=== PATIENT | female | born 1960 | race Caucasian/White ===

== ENCOUNTER → 2017-09-05 | Outpatient (CLI) | payer BC ==
[~2017-09-05] MED LIST: BNZ10T PO; CHOL100011 PO; DCS100C PO; DIPH-450 PO; DOCU100T7 PO; ESTR1TAB24 PO; HYDR1CAP2 PO; IBP800T PO; LVT.15T PO; LVT.1T PO; POTA10CA43 PO; SPIR50TA27 PO; TRIA1CAP PO
--- NOTE | 2017-09-05 22:18 | Diagnostic Imaging Report ---
Bilateral screening mammogram 2D views with tomosynthesis The current study was also evaluated with a Computer Aided Detection (CAD) system. INDICATION: Screening. No current complaints stated on the questionnaire. COMPARISON: 09/04/16. FINDINGS: The breasts are composed of heterogeneously dense parenchyma which may decrease mammographic sensitivity. There are scattered benign-appearing calcifications. Allowing for technique and positional differences, no suspicious change is seen. IMPRESSION: No significant change. ACR BI-RADS Category 2: Benign findings. Result letter will be mailed to the patient. Note: At least 10% of breast cancer is not imaged by mammography. Dictated by: Dictated on workstation # [id number]
== END ==
LOC: RAD 09:50
PROVIDERS: ATTEND Internal Medicine
DX: Z12.31 Encounter for screening mammogram for malignant neoplasm of breast (principal)
CPT/HCPCS: 77067

== ENCOUNTER → 2018-06-03 | Outpatient (CLI) | payer BC | LOC: CARD 07:24 | PROVIDERS: ATTEND Internal Medicine | DX: R00.2 Palpitations (principal) | CPT/HCPCS: 93005 ==

== ENCOUNTER 2018-06-05 08:07 | Outpatient (RCR) | payer BC | END 2018-06-24 | disposition home or self-care (01) | LOC: CARD 08:07 | PROVIDERS: ATTEND Internal Medicine | DX: R00.2 Palpitations (principal) | CPT/HCPCS: 93225; 93226 ==

== ENCOUNTER → 2018-10-07 | Outpatient (CLI) | payer BC ==
--- NOTE | 2018-10-07 12:29 | Diagnostic Imaging Report ---
INDICATION: Routine screening. COMPARISON: Comparison is made with prior mammograms from 09/05/2017 and 09/04/2016. TECHNIQUE: 2D and 3D bilateral screening mammography was performed with computer-aided detection (CAD) system. FINDINGS: Both breasts remain heterogeneously dense, limiting the sensitivity of mammography. No dominant mass or malignant appearing microcalcifications are seen. The axillae are unremarkable. IMPRESSION: No mammographic features suspicious for malignancy are identified. ACR BI-RADS Category 2: Benign findings. Result letter will be mailed to the patient. Note: At least 10% of breast cancer is not imaged by mammography. Dictated by: Dictated on workstation # [id number]
== END ==
LOC: RAD 07:45
PROVIDERS: ATTEND Internal Medicine
DX: Z12.31 Encounter for screening mammogram for malignant neoplasm of breast (principal)
CPT/HCPCS: 77067

== ENCOUNTER → 2019-10-14 | Outpatient (CLI) | payer BC ==
--- NOTE | 2019-10-14 09:25 | Diagnostic Imaging Report ---
INDICATION: Routine screening. Comparison is made with prior mammogram from 10/07/2018 and 09/05/2017. 2-D and 3-D bilateral screening mammography was performed with CAD. Both breasts are heterogeneously dense, limiting the sensitivity of mammography. There are some circumscribed nodular densities in left breast which appear to be fairly stable and likely owing to benign etiology. There is scattered benign calcifications bilaterally. A cluster of micro-calcifications in the outer right breast posterior depth is noted appearing slightly more prominent. Additional views are recommended. These may be superiorly located on the MLO view. No other suspicious abnormality is seen. Axillae are unremarkable. IMPRESSION: BI-RADS 0 Microcalcifications upper outer right breast posterior depth. Additional views are recommended for further evaluation. ACR BI-RADS Category 0: Incomplete. (Needs additional imaging evaluation). Result letter will be mailed to the patient. Note: At least 10% of breast cancer is not imaged by mammography. Dictated by: Dictated on workstation # [id number]
== END ==
LOC: RAD 07:33
PROVIDERS: ATTEND Internal Medicine
DX: Z12.31 Encounter for screening mammogram for malignant neoplasm of breast (principal)
CPT/HCPCS: 77067

== ENCOUNTER → 2019-10-29 | Outpatient (CLI) | payer BC ==
--- NOTE | 2019-10-29 13:11 | Diagnostic Imaging Report ---
INDICATION: Right breast calcifications. Patient presents for additional views. Correlation is made with recent screening study from 10/14/2019. Unilateral right 2-D and 3-D diagnostic mammography was performed. This includes magnification CC and ML views as well as conventional 90 degree lateral views. Additional views show a cluster of indeterminate microcalcifications in the upper and outer aspect of the right breast posterior depth. These do demonstrate some pleomorphism. No soft tissue tissue masses seen. Right axilla is unremarkable. IMPRESSION: BI-RADS 4 Cluster microcalcifications upper outer right breast posterior depth, indeterminate. Tissue sampling is recommended. These would be amenable to stereotactic biopsy. ACR BI-RADS Category 4: Suspicious abnormality. Result letter will be mailed to the patient. Note: At least 10% of breast cancer is not imaged by mammography. Dictated by: Dictated on workstation # [id number]
== END ==
LOC: RAD 12:34
PROVIDERS: ATTEND Internal Medicine
DX: N63.10 Unspecified lump in the right breast, unspecified quadrant (principal); R92.0 Mammographic microcalcification found on diagnostic imaging of breast

== ENCOUNTER → 2019-11-11 | Outpatient (CLI) | payer BC ==
[~2019-11-11] VITALS: Ht 170.2 cm; Wt 90.9 kg
[~2019-11-11] MED LIST changes: +LIDOCAINE 1% INJ 20 ML 20 ML VIAL INJ ONE
--- NOTE | 2019-11-11 10:55 | Diagnostic Imaging Report ---
INDICATION: Right breast calcifications. Patient presents for stereotactic biopsy. PROCEDURE: Patient was brought to the stereotactic suite and placed in a chair in a sitting upright position. Right breast was positioned lateral medial. The cluster of microcalcifications in the upper outer right breast were stereotactically targeted. The lateral right breast was then prepped and draped in usual sterile fashion. A small amount of 1% lidocaine was utilized for local anesthesia. 8-gauge stereotactic needle was then advanced from a lateral medial approach and placed per stereotactic coordinates. A total of four core biopsies were obtained with the 8 gauge needle and vacuum-assisted device. A specimen radiograph was obtained. Specimen radiograph demonstrates numerous calcifications located in samples 2, 3 and 4. Next, a localizer clip was deployed. Needle was removed and hemostasis was obtained. Follow-up 2D mammography demonstrates the clip in the upper outer right breast at posterior depth. All images were reviewed on dedicated workstation. Patient tolerated the procedure well and left the department in stable condition. IMPRESSION: Successful stereotactic biopsy of right breast calcifications, as described. Pathology results are currently pending. Dictated by: Dictated on workstation # [id number]
== END ==
LOC: RAD 09:15
PROVIDERS: ATTEND Internal Medicine
DX: N63.10 Unspecified lump in the right breast, unspecified quadrant (principal); R92.1 Mammographic calcification found on diagnostic imaging of breast
CPT/HCPCS: 19081; 88305

== ENCOUNTER 2020-06-23 07:44 | Emergency (ER) | payer BC ==
[~2020-06-23] VITALS: Ht 170 cm; Wt 102.0 kg
[~2020-06-23 07:44] MED LIST changes: -LIDOCAINE 1% INJ 20 ML 20 ML VIAL INJ ONE
--- NOTE | 2020-06-23 07:58 | ED Abdominal Pain ---
General Chief Complaint: Abdominal/GI Problems Stated Complaint: LOWER ABD PAIN Source of Information: Patient Exam Limitations: No Limitations History of Present Illness Date Seen by Provider: Jun 23, 2020 Time Seen by Provider: 07:58 Initial Comments 60-year-old female presents with lower abdominal pain. The pain has been going on and off for about 4 days. It's more suprapubic with some mild left lower quadrant. Patient reports she has a history of diverticulitis concerned about diverticulosis. Patient denies any urinary symptoms, burning pain. Patient denies any fevers or chills. She reports that the pain was a little bit better yesterday then got worse again today. She does not have any nausea or vomiting o r diarrhea. Has no cough or other systemic complaints.. Allergies and Home Medications Allergies Coded Allergies: No Known Drug Allergies (Unverified , 01/08/11) Home Medications Benazepril Hcl 10 Mg Tablet, 1 EACH PO DAILY, (Reported) Cholecalciferol 1,000 Unit Capsule, 1,000 UNIT PO DAILY, (Reported) Diphenhydramine Hcl 25 Mg Tablet, 2 TAB PO Q6 PRN, (Reported) Docusate Sodium 100 Mg Capsule, 100 MG PO BID, (Reported) Estradiol 1 Mg Tablet, 1 MG PO DAILY, (Reported) Levothyroxine Sodium 100 Mcg Tablet, 137 MCG PO DAILY, (Reported) Levothyroxine Sodium 150 Mcg Tablet, 1 EACH PO q48hrs, (Reported) Potassium Chloride 10 Meq Capsule.sa, 1 EACH PO DAILY, (Reported) Spironolactone 50 Mg Tablet, 50 MG PO DAILY, (Reported) Triamterene/Hctz 1 Each Capsule, 1 EACH PO DAILY, (Reported) Patient Home Medication List Home Medication List Reviewed: Yes Review of Systems Review of Systems Constitutional: No chills, No fever Respiratory: Denies Shortness of Air Cardiovascular: Denies Chest Pain Gastrointestinal: Abdominal Pain (suprapubic); Denies Constipated, Denies Diarrhea; Nausea, Vomiting Genitourinary: Denies Burning, Denies Frequency, Denies Flank Pain, Denies Hematuria Musculoskeletal: No back pain Skin: no symptoms reported Past [id number]-[id number] Hx Past Med/Social Hx: Reviewed Nursing Past Med/Soc Hx Patient Social History Recent Foreign Travel: No Contact w/Someone Who Travel: No Immunizations Up To Date Date of Influenza Vaccine: Aug 25, 2010 Past Medical History Reproductive Disorders: No Physical Exam Vital Signs Vital Signs - First Documented 06/23/20 07:55 Temp 36.8 Pulse 125 Resp 20 B/P (MAP) 148/87 (107) Pulse Ox 96 Capillary Refill : Height/Weight/BMI Height: '" Weight: lbs. oz. kg; 31.37 BMI Method: General Appearance: WD/WN, no apparent distress Respiratory: chest non-tender, lungs clear, normal breath sounds Cardiovascular: normal peripheral pulses, regular rate, rhythm Gastrointestinal: non tender, soft Extremities: normal range of motion, non-tender, normal capillary refill Back: no CVA tenderness Neurologic/Psychiatric: alert, normal mood/affect, oriented x 3 Skin: normal color, warm/dry Progress/Results/Core Measures Results/Orders Lab Results Laboratory Tests Test 06/23/20 08:05 06/23/20 08:14 Range/Units White Blood Count 13.3 H 4.3-11.0 10^3/uL Red Blood Count 4.47 4.35-5.85 10^6/uL Hemoglobin 13.1 11.5-16.0 G/DL Hematocrit 39 35-52 % Mean Corpuscular Volume 86 80-99 FL Mean Corpuscular Hemoglobin 29 25-34 PG Mean Corpuscular Hemoglobin Concent 34 32-36 G/DL Red Cell Distribution Width 13.9 10.0-14.5 % Platelet Count 314 130-400 10^3/uL Mean Platelet Volume 10.1 7.4-10.4 FL Sodium Level 138 135-145 MMOL/L Potassium Level 3.6 3.6-5.0 MMOL/L Chloride Level 104 98-107 MMOL/L Carbon Dioxide Level 20 L 21-32 MMOL/L Anion Gap 14 5-14 MMOL/L Blood Urea Nitrogen 15 7-18 MG/DL Creatinine 1.08 0.60-1.30 MG/DL Estimat Glomerular Filtration Rate 52 BUN/Creatinine Ratio 14 Glucose Level 107 H 70-105 MG/DL Calcium Level 10.7 H 8.5-10.1 MG/DL Corrected Calcium 10.5 H 8.5-10.1 MG/DL Total Bilirubin 0.5 0.1-1.0 MG/DL Aspartate Amino Transf (AST/SGOT) 21 5-34 U/L Alanine Aminotransferase (ALT/SGPT) 25 0-55 U/L Alkaline Phosphatase 48 40-136 U/L C-Reactive Protein High Sensitivity 17.84 H 0.00-0.50 MG/DL Total Protein 7.8 6.4-8.2 GM/DL Albumin 4.2 3.2-4.5 GM/DL Lipase 25 8-78 U/L Urine Color YELLOW Urine Clarity CLEAR Urine pH 5.5 5-9 Urine Specific [place] 1.020 1.016-1.022 Urine Protein NEGATIVE NEGATIVE Urine Glucose (UA) NEGATIVE NEGATIVE Urine Ketones NEGATIVE NEGATIVE Urine Nitrite NEGATIVE NEGATIVE Urine Bilirubin NEGATIVE NEGATIVE Urine Urobilinogen 0.2 < = 1.0 MG/DL Urine Leukocyte Esterase 2+ H NEGATIVE Urine RBC (Auto) NEGATIVE NEGATIVE Urine RBC NONE /HPF Urine WBC 50-100 H /HPF Urine Squamous Epithelial Cells 10-25 H /HPF Urine Crystals NONE /LPF Urine Bacteria MODERATE H /HPF Urine Casts NONE /LPF Urine Mucus SMALL H /LPF Urine Culture Indicated YES My Orders Orders - OSMAN,BELA L DO Abdomen, Flat & Upright/Decub (06/23/20 08:04) Cbc No Diff (06/23/20 08:04) Comprehensive Metabolic Panel (06/23/20 08:04) Hs C Reactive Protein (06/23/20 08:04) Lipase (06/23/20 08:04) Ua Culture If Indicated (06/23/20 08:04) Phenazopyridine Tablet (Pyridium Tablet) (06/23/20 08:15) Urine Culture (06/23/20 08:14) Ed Iv/Invasive Line Start (06/23/20 09:13) Ceftriaxone For Iv Use (Rocephin For I (06/23/20 09:13) Ct Abdomen/Pelvis W (06/23/20 09:13) Iohexol Injection (Omnipaque 350 Mg/Ml 1 (06/23/20 10:00) Received Contrast (Hold Metformin- Contr (06/23/20 10:00) Ns (Ivpb) (Sodium Chloride 0.9% Ivpb Bag (06/23/20 10:00) Medications Given in ED Current Medications Medications Dose Ordered Sig/Zari Route Start Time Stop Time Status Last Admin Dose Admin Iohexol 100 ml ONCE ONCE IV 06/23/20 10:00 06/23/20 10:06 DC 06/23/20 09:59 100 ML Phenazopyridine HCl 100 mg ONCE ONCE PO 06/23/20 08:15 06/23/20 08:16 DC 06/23/20 08:45 100 MG Sodium Chloride 100 ml ONCE ONCE IV 06/23/20 10:00 06/23/20 10:06 DC 06/23/20 09:59 80 ML Vital Signs/I&O 06/23/20 07:55 Temp 36.8 Pulse 125 Resp 20 B/P (MAP) 148/87 (107) Pulse Ox 96 Progress Progress Note : Time: 10:42 Progress Note Patient with acute diverticulitis along with a urinary tract infection. Patient will be treated with Cipro and Flagyl. I did discuss with her the incidental finding of a right breast mass and she will follow-up with her primary care provider for further evaluation. Patient has known renal cyst which she remembered was I discussed it with her. Patient is stable and will be discharged home Departure Impression Primary Impression: Diverticulitis of intestine Qualified Codes: K57.20 - Diverticulitis of large intestine with perforation and abscess without bleeding Additional Impressions: Breast mass, right Cystitis Disposition: 01 HOME, SELF-CARE Condition: Stable Departure-Patient Inst. Referrals: BHAVIN HAZEL DO (PCP/Family) Primary Care Physician Patient Instructions: Urinary Tract Infection, Adult (DC), Diverticulitis (DC) Add. Discharge Instructions: Follow-up with your primary care provider for further evaluation of abnormal breast mass on CT as well as follow-up for your diverticulitis All discharge instructions reviewed with patient and/or family. Voiced understanding. Scripts Metronidazole (Flagyl) 500 Mg Tablet 500 MG PO Q8H for 7 Days, #21 TAB Prov: BELA OSMAN DO 06/23/20 Ciprofloxacin HCl (Ciprofloxacin HCl) 500 Mg Tablet 500 MG PO BID, #14 TAB Prov: DAWSON,BELA L DO 06/23/20 BELA OSMAN DO Jun 23, 2020 07:58
--- OUTSIDE RECORDS SUMMARY | 2020-06-23 08:07 | XMS REPORT | Encounter Summary ---
Author Author [facility] Organization [facility] Address Unknown Phone Unavailable Care Team Providers Care Telecom Analyst Name Role Phone Angela Sheehan PCP Reason for Referral * Radiology Services (Routine) Referred By Contact Referred To Contact Status Reason Specialty Diagnoses / Procedures Niharika Randall, MARCIA [address] [place] [address] Gen Rad[address] [place] [address] No Auth Needed Radiology Diagnoses Encounter for screening for osteoporosis History of foot fracture Hypothyroidism, unspecified type P rocedures BONE DENSITY SPINE/HIP * Radiology Services (Routine) Referred By Contact Referred To Contact Status Reason Specialty Diagnoses / Procedures Niharika Randall, MARCIA [address] [place] [address] [place] [address] No Auth Needed Radiology Diagnoses Breast cancer screening, high risk patient At high risk for breast cancer Atypical ductal hyperplasia of right breast P rocedures MRI BREAST WOW CONT LMTD SCREEN RANJEET Reason for Visit * Reason Comments Breast Problem * Consult, Test & Treat (Routine) Referred By Contact Referred To Contact Status Reason Specialty Diagnoses / [place] [address] [place] [address] Cc - Ww Cl Exm/Proc [address] No Auth Needed Specialty Services Oncology Diagnoses Required Atypical ductal hyperplasia of right breast Re Eval 03/10/20 Encounter Details Care Team Description Date Type Department Niharika Randall, DOPE EDGER [address] [place], [place] [id number] Breast cancer screening, high risk patie nt (Primary Dx); At high risk for breast cancer; Atypical ductal hyperplasia of right breast; Encounter for screening for osteoporosis; Vitamin D deficiency; History of foot fracture; Hypothyroidism, unspecified type; Postmenopausal 03/17/2020 Office Visit The [address] [phone] Social History Date Tobacco Use Types Packs/Day Years Used Unknown If Ever Smoked Smokeless Tobacco: Never Used Drinks/Week oz/Week Comments Alcohol Use 2 Glasses of wine 2 Cans of beer 4.0 Yes Sex Assigned at Date Recorded Not on file Industry Job Start Date Occupation Not on file Not on file Not on file Travel End Travel History Travel Start No recent travel history available. Date Recorded COVID-19 Exposure Response 03/17/2020 10:52 AM CDT In the last month, have you been in contact with No / Unsure someone who was confirmed or suspected to have Coronavirus / COVID-19? 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 Body Mass Index documented in this encounter Functional Status Date of Assessment Functional Status Response 03/17/2020 Does the patient have a hearing impairment: No 03/17/2020 Does the patient have a visual impairment: Yes 03/17/2020 Does the patient have impaired ambulation: No 03/17/2020 Does the patient have an activity of daily living No (ADL) impairment: 03/17/2020 Does the patient have an instrumental activity of No daily living (IADL) impairment: Date of Assessment Cognitive Status Response 03/17/2020 Does the patient have a cognitive impairment: No documented as of this encounter Progress Notes * Lianet Morley - 03/17/2020 11:00 AM CDT the patient has received the documents and they have provided verbal consent * Niharika Randall APRN - 03/17/2020 11:00 AM CDT Telehealth Visit Note Date of Service: 03/17/2020 Subjective: Obtained patient's verbal consent to treat them and their agreement to [facility] policy and NPP via this telehealth visit during the Coronavirus Public He [facility] Nia Boothe is a 60 y.o. female. Diagnosis & Reason for Visit: Right Breast Atypical Ductal Hyperplasia Physician Info: Referring Physician: Dr Catalina Mendez Contact Name & Number: Breast Surgery, PCP: Dr Angela Sheehan, [place], [place], Location of Films: PACS Reproductive History Menarche: Age 11 Number of pregnancies: 4 Number of live births: 2 Age of first live : Age 28 Breastfeed: Yes If Yes, how long? Total of 11 months Oral Contraceptive Use: Patient describes taking oral contraceptives age 19 to 4 2 with gaps related to pregnancies. Fertility Treatments: Patient describes taking Clomid for 4 months at age 27. Menopause Status Postmenopausal Age of last period: ~ Age 48 Gynecologic Surgical History: D & C ~ 1992. ZAYDA BSO Anterior Repair & Adhesiolysis 06/08/11. Hormone Replacement Therapy (HRT) Use: Patient describes taking HRT after hyster ectomy age 51 to 59 (stopped 12/31/19). Family History Problem Relation Age of Onset Diabetes Mother Heart Disease Mother Hypertension Mother High Cholesterol Mother Diabetes Father Heart Disease Father Diabetes Sister Cancer-Prostate Paternal Uncle 70 Heart Disease Paternal Uncle 75 Stroke Maternal Grandmother Cancer Paternal Grandmother 70 Unknown primary Abd lump/mass/swelling Paternal Grandmother Cancer-Colon Paternal Grandfather 53 Heart Disease Paternal Grandfather 55 None Reported Brother Car accident None Reported Maternal Grandfather None Reported Daughter None Reported Son Engaged; to be 2020 Previous Genetic Testing: (Self, Family) Self/Family Exact Results/Specific Mutations/Variances None HISTORY OF PRESENT ILLNESS: Patient presents to the [facility] to establish care. She w as referred to my clinic by Catalina Mendez MD. She is at risk of the development o f breast cancer due to a personal history of ADH. The patient was in her usual [place] of health and had bilateral screening mammogram on 10/14/2019; BIRAD 0. Rig ht DMAMM was performed on 10/29/2019; BIRAD 4 - suspicious. She then had a right MTBX 11/11/2019 which noted ADH. F/U right DMAMM on 12/15/2019; BIRAD 4. Outside images were reviewed and consensus to F/U with right DMAMM in 6 months and estab lishing in [facility] for further treatment or screening recommendations. She is feeli ng well, denies changes in the breasts at this time. Review of Systems No unusual fatigue or distress at this visit. Working F/T [employer] ([employer] Works in the [employer] x 18 years. Currently working from home due to [employer]. Lives in [place], [place]. to [place] x 38 years. Has a rescue dog named Nannette. (2) children. (1) daughter and (1) son. Weight (BMI 33.22; # 215) Has struggled with weight her entire life. Genetic testing: none. No fever or chills. No headache or dizziness. No SOB or cough. No chest pain or palpations. Episodes of PVS in the past. Current therapy for HTN. Family history of cardiac disease. Denies nipple discharge, skin changes, lumps or pain. ADH (right breast); 10/2019. No musculoskeletal pain. No nausea, vomiting, diarrhea or constipation. No dysuria or hematochezia. Colonoscopy ~ 11 years ago (2008); reports normal findings. PCP manages F/U and plans to schedule next year. FH of colon cancer (paternal grandfather age 53). Hysterectomy/BSO (HRT x 8 years; age 50-59). Not having significant menopausal symptoms. No rash, ulcerations of the skin or changing moles. No FH of melanoma Patient has an unknown smoking status. She has never used smokeless tobacco. Patient reports current alcohol use of about 4.0 standard drinks of alcohol per week. Current exercise: None regularly. Walks around the block occasionally. No anxiety or depression Objective: benazepriL (LOTENSIN) 10 mg tablet Take 10 mg by mouth daily. cholecalciferol (VITAMIN D-3) 1,000 units tablet Take 1,000 Units by mouth d aily. 25mcg docusate sodium (STOOL SOFTENER PO) Take by mouth. levothyroxine (SYNTHROID) 175 mcg tablet Take 175 mcg by mouth daily 30 mike navdeep before breakfast. potassium chloride (MICRO-K) 10 mEq capsule Take 10 mEq by mouth daily. Take with a meal and a full glass of water. spironolactone (ALDACTONE) 50 mg tablet Take 50 mg by mouth daily. Take with food. TRIAMTERENE PO Take 25 mg by mouth. Vitals: 03/17/20 1044 03/17/20 1046 Weight: 97.5 kg (215 lb) PainSc: Zero Body mass index is 33.22 kg/m. Physical Exam Constitutional: Appearance: Normal appearance. She is obese. HENT: Head: Normocephalic. Eyes: General: No scleral icterus. Neck: Musculoskeletal: Normal range of motion. Pulmonary: Effort: Pulmonary effort is normal. Musculoskeletal: Normal range of motion. Skin: Findings: No rash. Neurological: Mental Status: She is alert and oriented to person, place, and time. Psychiatric: Mood and Affect: Mood normal. Behavior: Behavior normal. Thought Content: Thought content normal. Judgment: Judgment normal. Breast Health History & Imaging: Date Test Results 04/07/14 Bilateral Screening Mammogram BI-RADS 2 07/07/15 Bilateral Screening Mammogram BI-RADS 2 09/04/16 Bilateral Screening Mammogram BI-RADS 2 09/05/17 Bilateral Screening Mammogram BI-RADS 2 10/07/18 Bilateral Screening Mammogram BI-RADS 2 10/14/19 Bilateral Screening Mammogram BI-RADS 0 10/29/19 Right DX Mammogram BI-RADS 4 11/11/19 Right Breast Stereotactic Needle BX Diagnosis: A. Breast, right "not calcified" stereotactic needle biopsy - mild duct ectasia; no malignancy identified. B. Breast, right "calcified" stereotactic needle biopsy - [atypical intraductal hyperplasia with columnar cell change] associated microcalcifications. 12/15/19 Right DX Mammogram BI-RADS 4 12/21/19 Pathology Consultation Date Collected: 11/11/19 Right Breast Stereotactic Needle BX Final Diagnosis: A. Outside case "[id number]" (Date collected: 11/11/2019): 1. Breast, right "not calcified," stereotactic needle biopsy: Benign breast tis nathalia. 2. Breast, right "calcified," stereotactic needle biopsy: Atypical ductal hyper plasia with columnar cell change and associated microcalcifications. See comment. Comment: Number of foci of ADH: Greater than 2 ADH is incidental or associated with the target (mass or calcifications): Associated with target (calcifications) Presence of individual cell necrosis: No Presence of micropapillary features: Yes Breast Cancer Risk Assessment This risk assessment is regarding Nia rBian Wujr on 03/17/2020. It was a pleasure meeting you today in the High Risk Breast Clinic at [facility]. You were seen by Niharika Randall APRN. We hope you found todays visit helpful. Any physicians you have designated will receive a letter with our co nsultation assessment and recommendations. Below you will find some of the pola r points outlined at our visit today. Acute issues addressed today: Elevated risk for the development of breast cancer . Risk Assessment Elke Model - this includes assessment based on your age, reproductive history an d first degree relatives with breast cancer and your personal history of breast biopsies. Your 5 year risk of developing breast cancer (calculated at 60 y.o.): 3.9 % Average womens risk: 1.7 % Your lifetime risk of developing breast cancer (to age 90): 19.6 % Average womens risk: 9.3 % Tyrer-Cuzick Model this model includes a more extensive assessment of risk f actors, including age, height, weight, reproductive history, benign breast lesio ns, history of hormone replacement therapy use and a more extensive evaluation o f your family history. Your 10 year risk of developing breast cancer (calculated at 60 y.o.): 15.0 % Average womens risk: 3.6 % Your lifetime risk of developing breast cancer: 34.8 % Average womens risk: 9.3 % Genetic Testing Recommendations: Was genetic testing recommended today? no Breast Cancer Screening Recommendations: In addition to a clinical breast exam every 6 months, our screening imaging dione mmendations are: Mammogram: 12 months Include tomosynthesis (3D) if available? yes Ultrasound (ABUS): n/a Breast MRI: 12 months. Abbreviated MRI due to elevated risk. Prevention Recommendations: Was referral to a breast surgeon for preventive mastectomy discussed today? no Was referral to a lmft for preventive oophorectomy discussed today? no Was a chemoprevention medication discussed today? yes If so, which medication and potential side effects did we discuss with you today : Raloxifene. Will need BMD if she elects to take RX. Five years of Raloxifene (Evista) therapy is associated with an ~40% reduction i n breast cancer risk but is not associated with a survival advantage. As shown i n the CORE (Continuing Outcomes Relevant to Evista) trial, prolonged raloxifene administration appears safe and beneficial for both osteoporosis and breast canc er prevention. Discussed the potential side effects of Evista including but not limited to hot flashes, flu-like syndrome, joint pain, rhinitis and deep vein th rombosis. Evista is an oral medication to be taken by mouth with a full glass o f water at the same time each day. Patient will consider, however, she would lik e to work on lifestyle; weight reduction first. Additional prevention recommendations: - Maintain a healthy body weight. - Exercise regularly (150 minutes per week). - Alcohol in moderation (less than 4 drinks per week). Please contact us with any future questions or concerns by calling: For Niharika Randall, DOPE EDGER: Kellen If you would like to refer a family member, they can call to devyn cabrera an assessment. PLAN: 1. History of ADH. Elevated risk for the development of breast cancer (34.8% TC) . 2. Breast health: Recommend annual mammogram (REGINA) alternating with breast MRI every 6 months with CBE. Reviewed signs to report including but not limited to a lump, swelling, skin irritation, dimpling, pain, nipple retraction, redness of nipple or breast skin, scaly nipple or breast skin, nipple discharge, change in the size or shape of the breast. Patient verbalized understanding and office p jacklyn number provided. Discussed the purpose for the abbreviated breast MRI. Dis cussed the pros and cons of breast MRI. It has the potential advantage of increa sed sensitivity over mammogram. There is a 10-15% chance of detecting an ipsilat eral breast and 3-5% chance of detecting contralateral breast chance missed by m ammography. However, there is a 20% risk of false positive exam with need for ad ditional CNB that could be negative.The abbreviated examination is performed at a decreased cost of $500.00 out of pocket. Patient would like to schedule now. 3. Bone health: recommend BMD and Vitamin D level. Discussed raloxifene. Patient will defer at this time. 4. Lifestyle: patient will focus on weight reduction and increased exercise. 5. RTC in 09/2020 with bilateral mammogram (REGINA) and CBE. Niharika Randall APRN Collaborating physician: Kizzy Campos MD NPI # [id number] I have spent 61 minutes with the patient today. 61 minutes spent face to face vi a telehealth in evaluation, management, counseling and coordination of care func tions. Total time 61 minutes. documented in this encounter Plan of Treatment Order Schedule Name Type Priority Associated Diag noses Expected: 09/26/2020 (Approximate), Expi res: 03/17/2022 MAMMO SCREEN Imaging STAT Breast cancer s creening, BILAT/REGINA/CAD high risk patient At high risk for breast cancer documented as of this encounter Results * MRI BREAST WOW CONT LMTD SCREEN RANJEET (04/19/2020 1:40 PM CDT) Specimen Impressions Performed At ASSESSMENT: BIRAD 2-Benign [facility] RECOMMENDATION: Screening breast MRI in 1 year. Narrative Performed At [id number] MRI BREAST WOW CONT LMTD SCREEN RANJEET: APRIL 19 020 - [facility] Technologist: Naima Mccloud, MRI Techno logist Prior study comparison: December 15 0, right breast [id number] MAMMO DIAGNOSTIC RT/REGINA performed at [facility]. The breast is composed of scattered fib roglandular tissue. History: 60-year old female presents fo r screening MRI. She has a history of atypical ductal hyperplasia within the right breast on stereotactic guided biopsy. Technique: Abbreviated bilateral breast MRI was pe rformed with dedicated breast coil, with and without contrast in the axial plane using fat saturation. T2 axial images were ob tained. Accelerated imaging was performed. Images were inte rpreted with the aid of CAD, including 3D generation of MIP юлия ges and subtractions. 20 mL Multihance was injected in bolus fas hion. Findings: The breast tissue is scattered areas of fibroglandular tissue. There is moderate background parenchyma l enhancement. Left breast: No suspicious mass or nonmass enhanceme nt is seen within the left breast. No suspicious left axillary or internal mammary lymph nodes are identified. Right Breast: Biopsy clip and surrounding postbiopsy changes are seen within the upper outer quadrant of the right b reast at 10:30, posterior depth at site of prior stereotactic zi ded biopsy (image 131). There is no suspicious enhancement at t his site. No suspicious mass or nonmass enhanceme nt is seen within the right breast. No suspicious right axillary or interna l mammary lymph nodes are identified. Incidental Findings: None Impression: Postbiopsy changes of the upper outer q uadrant of the right breast. No MR evidence of breast malign harshad. Approved by Cyndi Pacheco M.D. on 3:58 PM By my electronic signature, I attest th at I have personally reviewed the images for this examinatio n and formulated the interpretations and opinions expressed in this report Finalized by Keven Omalley M.D. on 4:05 PM. Dictated by Cyndi Pacheco M.D. on 04/19/2020 3:48 PM. Electronically signed and approved by: Keven Omalley M.D. [id number] Procedure Note Interface, Radiant Results - 04/19/2020 4:05 PM CDT [id number] MRI BREAST WOW CONT LMTD SCREEN RANJEET: APRIL 19, 2020 - Technologist: Naima Mccloud grain grader Prior study comparison: December 15, 2019, right breast [id number] MAMMO DIAGNOSTIC RT/REGINA performed at [facility]. The breast is composed of scattered fibroglandular tissue. History: 60-year old female presents for screening MRI. She has a history of atypical ductal hyperplasia within the right breast on stereotactic guided biopsy. Technique: Abbreviated bilateral breast MRI was performed with dedicated breast coil, with and without contrast in the axial plane using fat saturation. T2 axial images were obtained. Accelerated imaging was performed. Images were interpreted with the aid of CAD, including 3D generation of MIP images and subtractions. 20 mL Multihance was injected in bolus fashion. Findings: The breast tissue is scattered areas of fibroglandular tissue. There is moderate background parenchymal enhancement. Left breast: No suspicious mass or nonmass enhancement is seen within the left breast. No suspicious left axillary or internal mammary lymph nodes are identified. Right Breast: Biopsy clip and surrounding postbiopsy changes are seen within the upper outer quadrant of the right breast at 10:30, posterior depth at site of prior stereotactic guided biopsy (image 131). There is no suspicious enhancement at this site. No suspicious mass or nonmass enhancement is seen within the right breast. No suspicious right axillary or internal mammary lymph nodes are identified. Incidental Findings: None Impression: Postbiopsy changes of the upper outer quadrant of the right breast. No MR evidence of breast malignancy. Approved by Cyndi Pacheco M.D. on 04/19/2020 3:58 PM By my electronic signature, I attest that I have personally reviewed the images for this examination and formulated the interpretations and opinions expressed in this report Finalized by Keven Omalley M.D. on 04/19/2020 4:05 PM. Dictated by Cyndi Pacheco M.D. on 04/19/2020 3:48 PM. Electronically signed and approved by: Keven Omalley M.D. [id number] IMPRESSION ASSESSMENT: BIRAD 2-Benign RECOMMENDATION: Screening breast MRI in 1 year. Performing Organization Address City/State/Zipcode Ph one Number [facility] * COMPREHENSIVE METABOLIC PANEL (04/19/2020 1:06 PM CDT) Sodium 138 137 - 147 MMOL/L [facility] Potassium 4.3 3.5 - 5.1 MMOL/L [facility] Chloride 102 98 - 110 MMOL/L [facility] Glucose 106 (H) 70 - 100 MG/DL [facility] Blood Urea 23 7 - 25 MG/DL [facility] Nitrogen Creatinine 1.05 (H) 0.4 - 1.00 MG/DL [facility] Calcium 11.3 (H) 8.5 - 10.6 MG/DL [facility] Total Protein 7.7 6.0 - 8.0 G/DL [facility] Total Bilirubin 0.3 0.3 - 1.2 MG/DL [facility] Albumin 4.4 3.5 - 5.0 G/DL [facility] Alk Phosphatase 42 25 - 110 U/L [facility] AST (SGOT) 19 7 - 40 U/L [facility] CO2 30 21 - 30 MMOL/L [facility] ALT (SGPT) 26 7 - 56 U/L [facility] Anion Gap 6 3 - 12 [facility] eGFR Non 54 (L) >60 mL/min [facility] Comment: [place] The eGFR is not validated f or use in drug dosing adjustments. Continue to use estimated creatinine clearance per dosing reference text. Please contact the Clinical Pharmacist for questions. eGFR >60 >60 mL/min [facility] [place] Comment: The eGFR is not validated for use in drug dosing adjustments. Continue to use estimated creatinine clearance per dosing reference text. Please contact the Clinical Pharmacist for questions. Specimen Blood Performing Organization Address City/State/[facility] Ph one Number [facility] [address] [place] [address] * 25-[place] VITAMIN D (D2 + D3) (04/19/2020 1:06 PM CDT) Vitamin 32.9 30 - 80 NG/ML [facility] D(25-OH)Total Specimen Blood Performing Organization Address City/[facility]/Zipcode Ph one Number [facility] [address] [place] [address] * BONE DENSITY SPINE/HIP (04/19/2020 12:52 PM CDT) Specimen Impressions Performed At Low bone mass (osteopenia). [facility] General comments regarding interpretati on of bone mineral density measurements: a) Consider FDA-approved medical therap ies in the setting of 1) Hip or vertebral fracture, 2) Osteoporosis, and 3) low b one mass, referred to as osteopenia, with FRAX score of greater than or equal to 3% for hip fracture or greater than or equal to 20% for major osteoporotic fra cture. Treatment may also be indicated based on clinical judgement and/or jordi ent preference. b) Interval between BMD testing should be determined according to each patient's clinical status: typically one year aft er initiation or change of therapy is appropriate, with longer intervals once therapeutic effect is established. In conditions with rapid bone loss, such a s glucocorticoid therapy, testing more frequently is appropriate. Finalized by Jad Bhagat M.D. on 03/26 1:03 PM. Dictated by Jad Bhagat M.D. on 04/19/2020 1:01 PM. Narrative Performed At BONE DENSITOMETRY [facility] CLINICAL INDICATION: Encounter for screening for osteoporosi s [Z13.820 (ICD-10-CM)] History of foot fracture [Z87.81 (ICD-1 0-CM)] Hypothyroidism, unspecified type [E03.9 (ICD-10-CM)] COMPARISON: None FINDINGS: DEXA scan of the lumbar spine and bilateral hips were performed with [employer]. Lumbar spine and hip with lowest T-score reported below. FRAX score was calculated from p atient reported risk factors and femoral neck bone density. LUMBAR SPINE, L2-L3 1.600 g/cm2, T-score of 3.1 Artifactual elevation of density second sultana to hypertrophic degenerative change RIGHT FEMORAL NECK 0.882 g/cm2, T-score of -1.1 RIGHT TOTAL HIP 0.962 g/cm2, T-score of -0.4 FRAX SCORE 10 year risk hip fracture = 0.4% 10 year risk major osteoporotic fractur e = 6.6% WHO Criteria for Diagnosis of Osteoporo sis (T-score)* Normal (-1.0 and above) Low bone mass, referred to as osteopeni a (Between -1.0 and -2.5) Osteoporosis (-2.5 and below) *Based on region with lowest bone mineral industry teacher al density. Procedure Note Interface, Radiant Results - 04/19/2020 1:06 PM CDT BONE DENSITOMETRY CLINICAL INDICATION: Encounter for screening for osteoporosis [Z13.820 (ICD-10-CM)] History of foot fracture [Z87.81 (ICD-10-CM)] Hypothyroidism, unspecified type [E03.9 (ICD-10-CM)] COMPARISON: None FINDINGS: DEXA scan of the lumbar spine and bilateral hips were performed with [employer]. Lumbar spine and hip with lowest T-score reported below. FRAX score was calculated from patient reported risk factors and femoral neck bone density. LUMBAR SPINE, L2-L3 1.600 g/cm2, T-score of 3.1 Artifactual elevation of density secondary to hypertrophic degenerative change RIGHT FEMORAL NECK 0.882 g/cm2, T-score of -1.1 RIGHT TOTAL HIP 0.962 g/cm2, T-score of -0.4 FRAX SCORE 10 year risk hip fracture = 0.4% 10 year risk major osteoporotic fracture = 6.6% WHO Criteria for Diagnosis of Osteoporosis (T-score)* Normal (-1.0 and above) Low bone mass, referred to as osteopenia (Between -1.0 and -2.5) Osteoporosis (-2.5 and below) *Based on region with lowest bone mineral density. IMPRESSION Low bone mass (osteopenia). General comments regarding interpretation of bone mineral density measurements: a) Consider FDA-approved medical therapies in the setting of 1) Hip or vertebral fracture, 2) Osteoporosis, and 3) low bone mass, referred to as osteopenia, with FRAX score of greater than or equal to 3% for hip fracture or greater than or equal to 20% for major osteoporotic fracture. Treatment may also be indicated based on clinical judgement and/or patient preference. b) Interval between BMD testing should be determined according to each patient's clinical status: typically one year after initiation or change of therapy is appropriate, with longer intervals once therapeutic effect is established. In conditions with rapid bone loss, such as glucocorticoid therapy, testing more frequently is appropriate. Finalized by Jad Bhagat M.D. on 04/19/2020 1:03 PM. Dictated by Jad Bhagat M.D. on 04/19/2020 1:01 PM. Performing Organization Address City/State/Zipcode Ph one Number [facility] RESULTS documented in this encounter Visit Diagnoses Diagnosis Breast cancer screening, high risk jordi ent Screening mammogram for high-risk patie nt At high risk for breast cancer Atypical ductal hyperplasia of right br east Encounter for screening for osteoporosi s Special screening for osteoporosis Vitamin D deficiency Unspecified vitamin D deficiency History of foot fracture Personal history of traumatic fracture Hypothyroidism, unspecified type Postmenopausal Asymptomatic postmenopausal status (age -related) (natural) documented in this encounter
--- OUTSIDE RECORDS SUMMARY | 2020-06-23 08:07 | XMS REPORT | Clinical Summary ---
Author Author [facility] Organization [facility] Address Unknown Phone Unavailable Care Team Providers Care Cake Wringer Name Role Phone Angela Sheehan PCP Source Comments Some departments are not documenting in the electronic medical record. If you d o not see the information that you expected, contact Release of Information in [facility] [employer] Information Management department at [phone] for further assistan ce in locating additional records.[facility] Allergies No Known Allergies Medications End Date Status Medication Sig Dispensed Refills Start Date Active levothyroxine (SYNTHROID) Take 175 mcg 0 175 mcg tablet by mouth daily 30 minutes before breakfast. Active TRIAMTERENE PO Take 25 mg by 0 mouth. Active spironolactone Take 50 mg by 0 (ALDACTONE) 50 mg tablet mouth daily. Take with food. Active benazepriL (LOTENSIN) 10 Take 10 mg by 0 mg tablet mouth daily. Active potassium chloride Take 10 mEq 0 (MICRO-K) 10 mEq capsule by mouth daily. Take with a meal and a full glass of water. Active cholecalciferol (VITAMIN Take 1,000 0 D-3) 1,000 units tablet Units by mouth daily. 25mcg Active docusate sodium (STOOL Take by 0 SOFTENER PO) mouth. Active Problems Problem Noted Date Atypical ductal hyperplasia of right breast 12/11/19 Overview: DIAGNOSIS: Right breast atypical ducta l hyperplasia dx 10/2019 HISTORY: Ms. Boothe is a female who pr esented to the [facility] on 12/15/2019 at age 59 for righ t atypical hyperplasia. She presented for screening mammogram on which identified a cluster of calcifications in the right breast. She underwent Right stereotactic biopsy on 11/11/2019 which revealed aty pical intraductal hyperplasia. She denies any current breast concerns. Sh e denies any other history of breast surgeries or biopsies. BREAST IMAGING: Mammogram: - Screening mammogram 10/14/2019 ([place]) revealed breasts were heterogeneously d ense. There were some circumscribed nodular densities in left breast which appear to be fairly stable and likely owing to benign etiology. There was scattered benign calcifications bilaterally. A cluster of micro-calcifi cations in the outer right breast posterior depth was noted appearing sli ghtly more prominent. Additional views were recommended. These may be s uperiorly located on the MLO view. No other suspicious abnormality was see n. Axillae were unremarkable. - Right diagnostic mammogram 10/29/2019 ([place] [facility]) revealed a cluster of indeterminate clay rocalcifications in the upper and outer aspect of the right breast ob gyn physician assistant ior depth. These do demonstrate some pleomorphism. No soft tissue mass es seen. Right axilla was unremarkable. REPRODUCTIVE HEALTH: Age at first Menarche: Age at First Live : Age at Menopause: : Para: : PROCEDURE: none PERTINENT PMH: FAMILY HISTORY: She denies a family hi story of breast cancer. Paternal Uncle-Prostate cancer PHYSICAL EXAM on PRESENTATION: MEDICAL ONCOLOGY: REFERRED BY: Angela Sheehan DO Encounters Care Team Description Date Type Specialty Niharika Randall APRN 04/19/2020 Hospital Radiology Encounter Niharika Randall APRN 04/19/2020 Hospital Radiology Encounter Niharika Randall APRN 04/19/2020 Hospital Radiology Encounter 04/19/2020 Travel from Last 3 Months Family History Medical History Relation Name Comments None Reported Brother Christian Car accident None Reported Daughter Cyndi Diabetes Father Cedric Heart Disease Father Cedric None Reported Maternal Grandfather Stroke Maternal Grandmother Diabetes Mother Katherine Heart Disease Mother Katherine High Cholesterol Mother Katherine Hypertension Mother Katherine Cancer-Colon Paternal Don Grandfather Heart Disease Paternal Don Grandfather Abd lump/mass/swelling Paternal Madeline Grandmother Cancer Paternal Madeline Unknown primary Grandmother Cancer-Prostate Paternal Miguel Ángel Uncle Heart Disease Paternal Miguel Ángel Uncle Diabetes Sister Amina None Reported Son Jarrod Engaged; to be fall Relation Name Status Comments Brother Christian Alive Brother Kali Alive Daughter Cyndi Alive Father Cedric (Age 86) Grandchild Mc Alive Maternal Grandfather Maternal Grandmother Mother Katherine (Age 83) Paternal Grandfather Addison (Age 55) Paternal Grandmother Madeline (Age 74) Paternal Uncle Miguel Ángel (Age 75) Sister Amina Alive Son Jarrod Alive Social History Date Tobacco Use Types Packs/Day Years Used Unknown If Ever Smoked Smokeless Tobacco: Never Used Tobacco Cessation: Counseling Given: No Drinks/Week oz/Week Comments Alcohol Use 2 Glasses of wine 2 Cans of beer 4.0 Yes Sex Assigned at Date Recorded Not on file Industry Job Start Date Occupation Not on file Not on file Not on file Travel End Travel History Travel Start No recent travel history available. Last Filed Vital Signs Reading Time Taken Comments Vital Sign 138/84 12/15/2019 11:50 AM MERCURY WASHER Blood Pressure 113 12/15/2019 11:50 AM MERCURY WASHER Pulse 36.4 C (97.5 F) 04/19/2020 1:00 PM CDT Temperature 16 12/15/2019 11:50 AM MERCURY WASHER Respiratory Rate 98% 12/15/2019 11:50 AM MERCURY WASHER Oxygen Saturation - - Inhaled Oxygen Concentration 97.5 kg (215 lb) 04/14/2020 12:56 PM CDT Weight 171.5 cm (5' 7.5") 04/14/2020 12:56 PM CDT Height 33.18 04/14/2020 12:56 PM CDT Body Mass Index Plan of Treatment Health Maintenance Due Date Last Done Comments HIV SCREENING 1976 DTAP/TDAP VACCINES (1 - 1979 Tdap) HEPATITIS C SCREENING 1979 PHYSICAL (COMPREHENSIVE) 1979 EXAM CERVICAL CANCER SCREENING 1982 BREAST CANCER SCREENING 2001 COLORECTAL CANCER 2011 SCREENING SHINGLES RECOMBINANT 2011 VACCINE (1 of 2) INFLUENZA VACCINE 08/25/2020 09/15/2019 Procedures Comments Procedure Name Priority Date/Time Associated Diag nosis MRI BREAST WOW CONT LMTD Routine 04/19/2020 Breas t cancer screening, SCREEN RANJEET 1:40 PM CDT high risk patient At high risk for breast cancer Atypical ductal hyperplasia of right breast HC COMPREHENSIVE Routine 04/19/2020 Atypical duct al METABOLIC PANEL 1:06 PM CDT hyperplasia of righ t breast Encounter for screening for osteoporosis HC 25-OH VITAMIN D Routine 04/19/2020 Encounter f or screening 1:06 PM CDT for osteoporosis BONE DENSITY SPINE/HIP Routine 04/19/2020 Encount er for screening 12:52 PM CDT for osteoporosis History of foot fracture Hypothyroidism, unspecified type from Last 3 Months Results * MRI BREAST WOW CONT LMTD SCREEN RANJEET (04/19/2020 1:40 PM CDT) Specimen Impressions Performed At ASSESSMENT: BIRAD 2-Benign [facility] RESULTS RECOMMENDATION: Screening breast MRI in 1 year. Narrative Performed At [id number] MRI BREAST WOW CONT LMTD SCREEN RANJEET: APRIL 19 020 - [facility] RESULTS Technologist: Naima Mccloud, MRI Techno logist Prior study comparison: December 15 0, right breast [id number] MAMMO DIAGNOSTIC RT/REGINA performed at [facility]. The breast is composed of scattered [...] signed and approved by: Keven Omalley M.D. [id number] Procedure Note Interface, Radiant Results - 04/19/2020 4:05 PM CDT [id number] MRI BREAST WOW CONT LMTD SCREEN RANJEET: APRIL 19, 2020 - Technologist: Naima Mccloud piping drafter Prior study comparison: December 15, 2019, right breast [id number] MAMMO DIAGNOSTIC RT/REGINA performed at [facility]. The breast is composed of scattered fibroglandular [...] signed and approved by: Keven Omalley M.D. [id number] IMPRESSION ASSESSMENT: BIRAD 2-Benign RECOMMENDATION: Screening breast MRI in 1 year. Performing Organization Address City/State/[facility] Ph one Number [facility] RES[facility] * 25-OH VITAMIN D (D2 + D3) (04/19/2020 1:06 PM CDT) Vitamin 32.9 30 - 80 NG/ML [facility] D(25-OH)Total Specimen Blood Performing Organization Address [facility] Ph one Number MAIN LAB [address] [place] [address] * COMPREHENSIVE METABOLIC PANEL (04/19/2020 1:06 PM [...] 54 (L) >60 mL/min [facility] Comment: [place] The eGFR is not validated f or use in drug dosing adjustments. Continue to use estimated creatinine clearance per dosing reference text. Please contact the Clinical Pharmacist for questions. eGFR >60 >60 mL/min [facility] [place] Comment: The eGFR is not validated for use in drug dosing adjustments. Continue to use estimated creatinine clearance per dosing reference text. Please contact the Clinical Pharmacist for questions. Specimen Blood Performing Organization Address City/State/Zipcode Ph one Number [facility] [address] [place] [address] * BONE DENSITY SPINE/HIP (04/19/2020 12:52 PM [...] spine and bilateral hips were performed with [facility]. Lumbar spine and hip with lowest T-score [...] below) *Based on region with lowest bone motion picture film examiner al density. Procedure Note Interface, Radiant Results - 04/19/2020 1:06 PM CDT BONE DENSITOMETRY CLINICAL INDICATION: Encounter for screening for osteoporosis [Z13.820 (ICD-10-CM)] History of foot fracture [Z87.81 (ICD-10-CM)] Hypothyroidism, unspecified type [E03.9 (ICD-10-CM)] COMPARISON: None FINDINGS: DEXA scan of the lumbar spine and bilateral hips were performed with [facility]. Lumbar spine and hip with lowest T-score [...] on 04/19/2020 1:03 PM. Dictated by Jad Bhagta M.D. on 04/19/2020 1:01 PM. Performing Organization Address City/State/[facility] Ph one Number [facility] RESULTS from Last 3 Months Insurance Type Payer Benefit Subscriber ID Effective Phone Address Plan / Dates Group PPO BCBS TARA BCBS PC xxxxxxxxxxxxxxx [id number] BLUE OUT resent OF STATE Advance Directives Patient Telescope Operator Explanation Type Date Recorded Advance Directive/DPOA
--- OUTSIDE RECORDS SUMMARY | 2020-06-23 08:07 | XMS REPORT | Encounter Summary ---
Author Author [facility] Organization [facility] Address Unknown Phone Unavailable Care Team Providers Care Felting Machine Operator Name Role Phone Angela Sheehan DO PCP Reason for Visit * Reason Comments Navigation Assessment Encounter Details Care Team Description Date Type Department Niharika Randall, EXTRUSION ENGINEER [address] [place] [address] Navigation Assessment 02/24/2020 Telephone [facility] [address] [place], [place] [address] Social History Date Tobacco Use Types Packs/Day [...] Travel Start No recent travel history available. documented as of this encounter Miscellaneous Notes * Telephone Encounter - Marlene Noonan RN - 02/24/2020 12:06 PM CDT Navigation Breast Cancer Prevention/High Risk Intake Assessment Patient Name: Nia Boothe : 1960 Age: 60 y.o. Insurance: BCBS Appointment Info: Original Appointment date: 03/08/20. Appointment to be resched uled. Diagnosis & Reason for Visit: Right Breast Atypical Ductal Hyperplasia Physician Info: ? Referring Physician: Dr Catalina Mendez Contact Name & Number: Breast Surgery, PCP: Dr Angela Sheehan, [place], [place], Location of Films: PACS Reproductive History [...] Surgical History: D & C ~ 1992. [facility] BSO Anterior Repair & Adhesiolysis 06/08/11. Hormone Replacement Therapy (HRT) Use: Patient describes taking HRT after hyster ectomy age 51 to 59 (stopped 12/31/19). Family History: Paternal Grandmother DX with widespread cancer but specific details not known. Paternal Grandfather DX Colon Cancer. Paternal Uncle (Miguel Ángel) DX Prostate cancer. Previous Genetic Testing: (Self, Family) Self/Family Exact Results/Specific Mutations/Variances None Breast Health History & Imaging: Date Test [...] Needle BX Final Diagnosis: A. Outside case "[id number]" (Date collected: 11/11/2019): 1. Breast, right "not [...] necrosis: No Presence of micropapillary features: Yes RISK MODELS Cedrick Senior: 10 Year Risk: 15% 10 Year Population Risk: 3.6% Lifetime Risk: 34.8% Lifetime Population Risk: 9.3% TONEY Scale: 5 Year Risk: 3.9% Average Woman 5 Year Risk: 1.7% Lifetime Risk: 19.6% Lifetime Average Woman Risk: 9.3% documented in this encounter Plan of Treatment Not on filedocumented as of this encounter Visit Diagnoses Not on filedocumented in this encounter
--- OUTSIDE RECORDS SUMMARY | 2020-06-23 08:07 | XMS REPORT | Encounter Summary ---
Author Author [facility] Organization [facility] Address Unknown Phone Unavailable Care Team Providers Care Industrial Order Clerk Name Role Phone Angela Sheehan DO PCP Encounter Details Care Team Description Date Type Department 03/17/2020 Travel Social History Date Tobacco Use Types Packs/Day [...] / COVID-19? documented as of this encounter Functional Status Date of Assessment [...] impairment: No documented as of this encounter Plan of Treatment Not on filedocumented as of this encounter Visit Diagnoses Not on filedocumented in this encounter
--- OUTSIDE RECORDS SUMMARY | 2020-06-23 08:07 | XMS REPORT | Encounter Summary ---
Author Author [facility] Organization [facility] Address Unknown Phone Unavailable Care Team Providers Care Combat Rifle Crewmember Name Role Phone Angela Sheehan DO PCP Encounter Details Care Team Description Date Type Department 04/19/2020 Travel Social History Date Tobacco Use Types [...] history available. Date Recorded COVID-19 Exposure Response 04/19/2020 12:34 PM CDT In the last month, have you [...]
--- OUTSIDE RECORDS SUMMARY | 2020-06-23 08:07 | XMS REPORT | Encounter Summary ---
Author Author [facility] Organization [facility] Address Unknown Phone Unavailable Care Team Providers Care Crts Name Role Phone Angela Sheehan PCP Reason for Referral * Radiology Services (Routine) Referred By Contact Referred To Contact Status Reason Specialty Diagnoses / Procedures Niharika Randall, CERTIFIED MARINE MECHANIC[address] [place] [address] Mri [facility] [address] [address] No Auth Needed Radiology Diagnoses Breast cancer screening, high risk patient At high risk for breast cancer Atypical ductal hyperplasia of right breast P rocedures MRI BREAST WOW CONT LMTD SCREEN RANJEET Reason for Visit * Radiology Services (Routine) Referred By Contact Referred To Contact Status Reason Specialty Diagnoses / Procedures Niharika Randall, CERTIFIED MARINE MECHANIC[address] [place] [address] [address] [address] No Auth Needed Radiology Diagnoses Breast cancer screening, high risk patient At high risk for breast cancer Atypical ductal hyperplasia of right breast P rocedures MRI BREAST WOW CONT LMTD SCREEN RANJEET Encounter Details Care Team Description Date Type Department Niharika Randall, CERTIFIED MARINE MECHANIC[address] [place] [address] [phone] 04/19/2020 [facility] [address] [place] [address] Social History Date Tobacco Use Types Packs/Day [...] impairment: No documented as of this encounter Medications at Time of Discharge Start Date End Date Medication Sig Dispensed Refills benazepriL (LOTENSIN) 10 Take 10 mg by 0 mg tablet mouth daily. cholecalciferol (VITAMIN Take 1,000 0 D-3) 1,000 units tablet Units by mouth daily. 25mcg docusate sodium (STOOL Take by 0 SOFTENER PO) mouth. levothyroxine (SYNTHROID) Take 175 mcg 0 175 mcg tablet by mouth daily 30 minutes before breakfast. potassium chloride Take 10 mEq 0 (MICRO-K) 10 mEq capsule by mouth daily. Take with a meal and a full glass of water. spironolactone Take 50 mg by 0 (ALDACTONE) 50 mg tablet mouth daily. Take with food. TRIAMTERENE PO Take 25 mg by 0 mouth. documented as of this encounter Plan of Treatment Not on filedocumented as of this encounter Procedures Comments Procedure Name Priority Date/Time Associated Diag nosis MRI BREAST WOW CONT LMTD Routine 04/19/2020 Breas t cancer screening, SCREEN RANJEET 1:40 PM CDT high risk patient At high risk for breast cancer Atypical ductal hyperplasia of right breast HC 25-OH VITAMIN D Routine 04/19/2020 Encounter f or screening 1:06 PM CDT for osteoporosis HC COMPREHENSIVE Routine 04/19/2020 Atypical duct al METABOLIC PANEL 1:06 PM CDT hyperplasia of righ t breast Encounter for screening for osteoporosis documented in this encounter Results * MRI BREAST WOW CONT LMTD SCREEN RANJEET (04/19/2020 1:40 PM CDT) Specimen Impressions Performed At ASSESSMENT: BIRAD 2-Benign [facility] RESULTS RECOMMENDATION: Screening breast MRI in 1 year. Narrative Performed At [id number] MRI BREAST WOW CONT LMTD SCREEN RANJEET: APRIL 19 020 - [facility] RESULTS Technologist: Naima Mccloud, MRI Techno logist Prior study comparison: December 15 0, right breast [id number] MAMMO DIAGNOSTIC RT/REGINA performed at [facility]. The breast is composed of scattered fib [...] signed and approved by: Keven Omalley M.D. [id number] Procedure Note Interface, Radiant Results - 04/19/2020 4:05 PM CDT [id number] MRI BREAST WOW CONT LMTD SCREEN RANJEET: APRIL 19, 2020 - Technologist: Naima Mccloud stained glass glazier Prior study comparison: December 15, 2019, right breast [id number] MAMMO DIAGNOSTIC RT/REGINA performed at [facility]. The breast is composed of scattered [...] signed and approved by: Keven Omalley M.D. [id number] IMPRESSION ASSESSMENT: BIRAD 2-Benign RECOMMENDATION: Screening breast MRI in 1 year. Performing Organization Address City/State/[facility] Ph one Number [facility] RES[facility] * [...] 54 (L) >60 mL/min [facility] Comment: [place] The eGFR is not validated f or use in drug dosing adjustments. Continue to use estimated creatinine clearance per dosing reference text. Please contact the Clinical Pharmacist for questions. eGFR >60 >60 mL/min [facility] [place] Comment: The eGFR is not validated for use in drug dosing adjustments. Continue to use estimated creatinine clearance per dosing reference text. Please contact the Clinical Pharmacist for questions. Specimen Blood Performing Organization Address City/State/Zipcode Ph one Number [facility] [address] [place] [address] * 25-OH VITAMIN D (D2 + D3) (04/19/2020 1:06 PM CDT) Vitamin 32.9 30 - 80 NG/ML [facility] D(25-OH)Total Specimen Blood Performing Organization Address City/State/Zipcode Ph one Number MAIN LAB [address] [place] [address] documented in this encounter Visit Diagnoses Diagnosis Breast cancer screening, high risk jordi ent Screening mammogram for high-risk patie nt At high risk for breast cancer Atypical ductal hyperplasia of right br east Encounter for screening for osteoporosi s Special screening for osteoporosis documented in this encounter Administered Medications Action Date Dose Rate Site Medication Order MAR Action 04/19/2020 1:41 PM CDT 20 mL gadobenate dimeglumine (MULTIHANCE) Given injection 20 mL 20 mL, Intravenous, ONCE, 1 dose, 04/19/20 at 1315, NOTE: This is a HIGH ALERT Medication., 04/19/2020 1:41 PM CDT 50 mL sodium chloride PF 0.9% injection 50 mL Given 50 mL, Intravenous, ONCE, 1 dose, 04/19/20 at 1315, DO NOT SEND this medication unless it is requested. This med is usually available in floor stock., Intra-procedure (IR) documented in this encounter
--- OUTSIDE RECORDS SUMMARY | 2020-06-23 08:07 | XMS REPORT | Encounter Summary ---
Author Author [facility] Organization [facility] Address Unknown Phone Unavailable Care Team Providers Care Cooker Operator Name Role Phone Angela Sheehan DO PCP Encounter Details Care Team Description Date Type Department Niharika Randall APRN [address] [place] [address] [phone] 03/09/[address] Document[address] [address] Social History Date Tobacco Use Types Packs/Day [...] history available. documented as of this encounter Progress Notes * Kellen Vasquez RN - 03/09/2020 9:53 AM CDT 9:45 AM Niharika Randall APRN called patient to get her set up for TELEHEALTH-NEW P T visit. She does not have MyChart. Instructions & activation code sent to her. Requested that she do this FELIX so that we can get her scheduled. She is planning to install MyChart & Zoom on her mobile phone later today. documented in this encounter Plan of Treatment Not on filedocumented as of this encounter Visit Diagnoses Not on filedocumented in this encounter
--- OUTSIDE RECORDS SUMMARY | 2020-06-23 08:07 | XMS REPORT | Encounter Summary ---
Author Author [facility] Organization [facility] Address Unknown Phone Unavailable Care Team Providers Care General Partner Name Role Phone Angela Sheehan PCP Reason for Referral * Radiology Services (Routine) Referred By Contact Referred To Contact Status Reason Specialty Diagnoses / Procedures Niharika Randall, MARCIA [address] [place] [address] Gen Radiology [address] [address] No Auth Needed Radiology Diagnoses Encounter for screening for osteoporosis History of foot fracture Hypothyroidism, unspecified type P rocedures BONE DENSITY SPINE/HIP Reason for Visit * Radiology Services (Routine) Referred By Contact Referred To Contact Status Reason Specialty Diagnoses / Procedures Niharika Randall, TABLE FILLER[address] [place] [address] Gen Radiology [address] [address] No Auth Needed Radiology Diagnoses Encounter for screening for osteoporosis History of foot fracture Hypothyroidism, unspecified type P rocedures BONE DENSITY SPINE/HIP Encounter Details Care Team Description Date Type Department Niharika Randall, MARCIA [address] [place] [address] [phone] 04/19/2020 [facility] [address] [place] [address] Social History Date Tobacco Use Types Packs/Day [...] Procedure Name Priority Date/Time Associated Diag nosis BONE DENSITY SPINE/HIP Routine 04/19/2020 Encount er for screening 12:52 PM CDT for osteoporosis History of foot fracture Hypothyroidism, unspecified type documented in this encounter Results * BONE DENSITY SPINE/HIP (04/19/2020 12:52 PM [...] spine and bilateral hips were performed with [employer]. Lumbar spine and hip with lowest T-score [...] below) *Based on region with lowest bone miner placer al density. Procedure Note Interface, Radiant Results - 04/19/2020 1:06 PM CDT BONE DENSITOMETRY CLINICAL INDICATION: Encounter for screening for osteoporosis [Z13.820 (ICD-10-CM)] History of foot fracture [Z87.81 (ICD-10-CM)] Hypothyroidism, unspecified type [E03.9 (ICD-10-CM)] COMPARISON: None FINDINGS: DEXA scan of the lumbar spine and bilateral hips were performed with mention. Lumbar spine and hip with lowest T-score [...] documented in this encounter Visit Diagnoses Diagnosis Encounter for screening for osteoporosi s Special screening for osteoporosis History of foot fracture Personal history of traumatic fracture Hypothyroidism, unspecified type documented in this encounter
--- OUTSIDE RECORDS SUMMARY | 2020-06-23 08:07 | XMS REPORT | Encounter Summary ---
Author Author [facility] Organization [facility] Address Unknown Phone Unavailable Care Team Providers Care Venue Manager Name Role Phone Angela Sheehan DO PCP Encounter Details Care Team Description Date Type Department Niharika Randall, CASSANDRA DEVELOPER [address] [place], [place] [id number] 04/19/2020 [facility] [address] [id number] Social History Date Tobacco Use Types Packs/Day [...]
--- OUTSIDE RECORDS SUMMARY | 2020-06-23 08:07 | XMS REPORT | Encounter Summary ---
Author Author [facility] Organization [facility] Address Unknown Phone Unavailable Care Team Providers Care Resource Efficiency Manager Name Role Phone Angela Sheehan DO PCP Encounter Details Care Team Description Date Type Department Niharika Randall, VALUE STREAM MANAGER [address] [place] [address] [phone] 03/17/2020 Documentation The [address] [address] Social History Date Tobacco Use Types Packs/Day [...] Progress Notes * Kellen Vasquez RN - 03/17/2020 1:26 PM CDT Marlen Lifetime Risk of Breast Cancer Risk Evaluation Tool sent to patient via [employer]. documented in this encounter Plan of Treatment Not on filedocumented as of this encounter Visit Diagnoses Not on filedocumented in this encounter
--- OUTSIDE RECORDS SUMMARY | 2020-06-23 08:07 | XMS REPORT | Encounter Summary ---
Author Author [facility] Organization [facility] Address Unknown Phone Unavailable Care Team Providers Care Rn Case Mgr Name Role Phone Angela Sheehan PCP Reason for Referral * Consult, Test & Treat (Routine) Referred By Contact Referred To Contact Status Reason Specialty Diagnoses / [place] [address] [place] [address] [facility] Exm/Proc [address] No Auth Needed Specialty Services Oncology Diagnoses Required Atypical ductal hyperplasia of right breast Re Eval 03/10/20 Scheduling Instructions Patient would like to be scheduled at [facility] Reason for Visit * Reason Comments Referral Encounter Details Care Team Description [place] [address] [place] [address] [phone] Referral 12/25/2019 Telephone [facility] [address] [place] [address] Social History Date Tobacco Use Types Packs/Day [...] encounter Miscellaneous Notes * Telephone Encounter - Kiersten Swartz RN - 12/25/2019 11:15 AM INSTRUMENTS SALES REPRESENTATIVE Patient calls stating she received a VM from Dr. Mendez with information about BCP C and she would like to move forward with scheduling. Referral placed and shasha nt educated that she will be contacted by navigation to schedule an appointment. Patient verbalizes understanding. All questions answered. Patient given conta ct information for additional questions or concerns. RUMENTS SALES REPRESENTATIVE documented in this encounter Plan of Treatment Order Schedule Name Type Priority Associated Diag noses Ordered: 12/25/2019 AMB REFERRAL TO BREAST Outpatient Routine Atypica l ductal [facility] Referral hyperplasia o f right breast documented as of this encounter Visit Diagnoses Diagnosis Atypical ductal hyperplasia of right br east documented in this encounter
--- OUTSIDE RECORDS SUMMARY | 2020-06-23 08:07 | XMS REPORT | Encounter Summary ---
Author Author [facility] Organization [facility] Address Unknown Phone Unavailable Care Team Providers Care Naphthol Soaping Machine Operator Name Role Phone Angela Sheehan PCP Reason for Visit * Reason Comments Appointment Encounter Details Care Team Description Date Type Department Stephanie Leonardo RN Appointment 02/09/2020 Telephone [facility] [address] [address] Social History Date Tobacco Use Types Packs/Day [...] history available. documented as of this encounter Plan of Treatment Not on filedocumented as of this encounter Visit Diagnoses Not on filedocumented in this encounter
--- OUTSIDE RECORDS SUMMARY | 2020-06-23 08:08 | XMS REPORT | Clinical Summary ---
Author Author User, Nia Cage Organization [facility] Address Unknown Phone Unavailable Allergies, Adverse Reactions, Alerts Allergy Name Reaction Description Start Date Severity Status Pr ovider FELODIPINE PAC Critical Active Angela Sheehan Conditions or Problems Problem Name Problem Code Onset Date Status Entry Date Provider Comment Standard Description Annotate HYPERTENSION, BENIGN ESSENTIAL, CONTROLLED 401.1 Acti ve Angela Sheehan Benign essential hypertension LIPID DISORDER 272.9 Active Angela العلي r Unspecified disorder of lipoid metabolism DIZZINESS 780.4 Resolved Angela Sheehan Dizziness and giddiness once weight gets to 150 History of POTASSIUM 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 2012 Angela Sheehan Hypopotassemia WELL WOMAN V70.0 Resolved Angela Sheehan Routine general medical examination at a [facility] care facility SINUSITIS, ACUTE 461.9 Resolved Angela tyler Acute sinusitis, unspecified TACHYCARDIA 785.0 Resolved Angela Sheehan Tachycardia, unspecified HYPERTHYROIDISM 242.90 Refinement Angela stephenson Thyrotoxicosis without mention of goiter or other cause, and without mention of thyrotoxic crisis or storm HYPOTHYROIDISM, POST-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 Active Angela Sheehan Iodine hypothyroidism 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 Angela calloway Toxic diffuse goiter without mention of thyrotoxic crisis or storm PAC 427.61 Resolved Angela Sheehan Supraventricular premature beats HYPOMAGNESEMIA 275.2 Resolved Angela Montoya er Disorders of magnesium metabolism HYPOTHYROIDISM 244.9 Resolved Angela Montoya er Unspecified hypothyroidism DYSPNEA 786.09 Resolved Angela Sheehan Other dyspnea and respiratory abnormality SINUSITIS, SPHENOIDAL, ACUTE 461.3 Resolved Angela Sheehan Acute sphenoidal sinusitis FEVER UNSPECIFIED 780.60 Resolved Angela stephenson Fever, unspecified ANEMIA, IRON DEFICIENCY NEC 280.8 Resolved Angela Sheehan Other specified iron deficiency anemias ABNORMAL MAMMOGRAM 793.80 Resolved Angela Sheehan Abnormal mammogram, unspecified ABNORMAL MAMMOGRAM 793.80 Resolved Angela Sheehan Abnormal mammogram, unspecified HEALTH SCREENING V70.0 Resolved Angela tyler Routine general medical examination at a health care facility HYPERTRIGLYCERIDEMIA 272.1 Active Angela Sheehan Pure hyperglyceridemia SEBACEOUS CYST, INFECTED 706.2 Resolved Angela Sheehan Sebaceous cyst VAGINITIS, ATROPHIC 627.3 Active Angela Sheehan Postmenopausal atrophic vaginitis WELL WOMAN V70.0 Inactive Angela Sheehan Routine general medical examination at a health care facility Medication List Medication Instructions Start Date Stop Date Generic Name NDC Status Provider Patient Instruction PREMARIN 0.625 MG/GM CREA Apply to affected area daily prn ESTROGENS, CONJUGATED VAGINAL 55748756349 Active Angela Montoya er POTASSIUM CHLORIDE ER 10 MEQ CR-CAPS 1 PO DAILY POTASSIUM CHLORIDE 08988920146 Active Marta Dimas SYNTHROID 150 MCG TABS 1 PO daily along with 12.5 mcg dosing 12/08 LEVOTHYROXINE SODIUM 76479015363 Active Marta Dimas SYNTHROID 0.025 MG TAB 1/2 PO daily with 150 mcg dosing LEVOTHYROXINE SODIUM 16345065083 Active Marta Dimas SYNTHROID 137 MCG TABS 1 PO every other day alternating with 150 mcg LEVOTHYROXINE SODIUM 55508110773 No Longer Active Angelaedgar Sheehan ESTRACE 1 MG TABS I po daily ESTRADIOL 78178833948 Activ e Marta Dimas FEOSOL 200 (65 FE) MG TABS 1 PO daily with breakfast 2 FERROUS SULFATE DRIED 56301474823 No Longer Active Angela Sheehan VITAMIN D 1000 UNIT TABS 1 PO Daily CHOLECALCIFER OL 68555843829 Active Angela Sheehan AUGMENTIN 875-125 MG TAB 1 PO BID SLOANE XICILLIN-POT CLAVULANATE 17586630135 No Longer Active Angela AQUINO'S NASAL SPRAY (DEXAMETHASONE, GENTAMICIN, SA LINE) 2 puffs each nostril TID for [address] ADAIR NASAL SP RAY (DEXAMETHASONE, GENTAMICIN, SALINE) No Longer Active Angela Sheehan PHENTERMINE HCL 37.5 MG CAPS 1 PO Daily PHENTER MINE HCL 07860363841 No Longer Active Angela Sheehan LOTENSIN 10 MG TAB 1 PO daily BENAZEPRIL HCL 28085406 003 Active Marta Dimas BENICAR 20 MG TABS 1/2 PO daily OLMESARTAN MEDO XOMIL 01222861893 No Longer Active Angela Sheehan LASIX 20 MG TAB 1 PO QD (on hold) FUROSEMIDE 000 98328407 No Longer Active Angela Sheehan PLENDIL 5 MG TB24 1 PO daily FELODIPINE 755589942 00 No Longer Active Angelaedgar Sheehan ALDACTONE 50 MG TABS 1 PO daily for HTN SPIRONOLA CTONE 08937728821 Active Marta AQUINO'Alexander NASAL SPRAY 2 sprays each nostril TID x 7 days 01/27 DR. ADAIR NASAL SPRAY No Longer Active Marta Dimas AUGMENTIN 500-125 MG TABS 1 po BID x 7 days AMOXICILLIN- POT CLAVULANATE 63447868791 No Longer Active Marta Dimas ZITHROMAX Z-YU 250 MG TABS 2 po the first day, then 1 po x 4 da ys AZITHROMYCIN 66149922587 No Longer Active Marta Dimas POTASSIUM CHLORIDE CR 10 MEQ TBCR 1 po daily POTASSIUM CHLORIDE 39918861761 No Longer Active Angela Sheehan TOPROL XL 25 MG TB24 1 PO daily METOPROLOL SUCC INATE 33343871248 No Longer Active Agnela Sheehan TAPAZOLE 10 MG TABS 6 pills PO daily METHIMAZOL E 01998743932 No Longer Active Angela ADAIR MAGIC NASAL SPRAY 2 PUFFS EACH NOSTRIL TID [address] ADAIR MAGIC NASAL SPRAY No Longer Active Angela Sheehan AMOXICILLIN 500 MG CAP 1 PO TID AMOXICILLIN 633 68614953 No Longer Active Angela Sheehan DYAZIDE 37.5-25 MG CAPS 1 po daily TRIAMTERENE-HC TZ 93221118728 Active Marta Dimas STOOL SOFTENER 100 MG CAPS 2 tabs daily DOCUSATE SODIUM 50087348312 Active Angela Sheehan Immunizations Vaccine Administration Date Value Standard Shahid cription Influenza vaccine given declined influenz a virus vaccine, unspecified formulation Vital Signs Date Name Value Unit Range Description blood pressure, diastolic - 8462-4 94 mm[Hg] BP lacey blood pressure, systolic - 8480-6 152 mm[Hg] BP sys pulse rate E&M - 8867-4 82 /min H eart rate respiratory rate E&M - 9279-1 14 /min Resp rate weight E&M - 3141-9 216 [lb_av] Weigh t Measured blood pressure, diastolic - 8462-4 62 mm[Hg] BP lacey blood pressure, systolic - 8480-6 134 mm[Hg] BP sys pulse rate E&M - 8867-4 80 /min H eart rate respiratory rate E&M - 9279-1 14 /min Resp rate blood pressure, diastolic - 8462-4 70 mm[Hg] BP lacey blood pressure, systolic - 8480-6 130 mm[Hg] BP sys pulse rate E&M - 8867-4 80 /min H eart rate respiratory rate E&M - 9279-1 14 /min Resp rate weight E&M - 3141-9 218 [lb_av] Weigh t Measured Diagnostic Results Date Name Value Unit Range Description Clinical Lists Update: CMP,Chol,Trig,TSH ,Free T4 - Chemistry albumin, serum 4.1 g/dL thyroid stimulating hormone, serum 1.44 u[iU]/mL alkaline phosphatase, serum 37 U/L anion gap, serum 14 urea nitrogen, blood 21 mg/dL potassium, serum 3.6 mmol/L calcium, serum 9.5 mg/dL triglyceride, serum, fasting 234 mg/dL chloride, serum 100 mmol/L protein, total, serum 6.9 g/dL cholesterol, serum 183 mg/dL glucose, plasma fasting 90 mg/dL carbon dioxide, venous blood 27.0 mmol/L aspartate aminotransferase (SGOT), serum 15 U/L creatinine, serum 1.0 mg/dL sodium, serum 137 mmol/L thyroxine, serum, free 0.95 ng/dL alanine aminotransferase (SGPT), serum 14 U/L Estimated Glomerular Filtration Rate (calc) 62 mL/ min/1.73m2 bilirubin, serum, total 0.3 mg/dL Clinical Lists Update: CMP,FLP,TSH,FREE T4 - Chemistry urea nitrogen, blood 17 mg/dL alkaline phosphatase, serum 38 U/L calcium, serum 9.8 mg/dL chloride, serum 99 mmol/L cholesterol, serum 199 mg/dL carbon dioxide, venous blood 29.0 mmol/L creatinine, serum 1.1 mg/dL thyroxine, serum, free 1.22 ng/dL HDL cholesterol, serum 40.0 mg/dL thyroid stimulating hormone, serum 1.08 u[iU]/mL LDL cholesterol, serum 115 mg/dL potassium, serum 4.1 mmol/L protein, total, serum 7.2 g/dL aspartate aminotransferase (SGOT), serum 16 U/L alanine aminotransferase (SGPT), serum 14 U/L bilirubin, serum, total 0.4 mg/dL triglyceride, serum, fasting 218 mg/dL sodium, serum 136 mmol/L anion gap, serum 12 cholesterol/HDL ratio, serum, percent 5.0 glucose, plasma fasting 87 mg/dL albumin, serum 4.1 g/dL Estimated Glomerular Filtration Rate (calc) 56 mL/ min/1.73m2 Encounters Code Encounter Date Provider Facility CPT-71553 Ofc Vst, Est Level IV 13:36:26 CDT Angela Sheehan DO, FACP CPT-67050 Ofc Vst, Est Level IV 20:09:34 MOBILE PRODUCT MANAGER Angela Sherry Gomezi Alexander Sheehan, DO, FACP CPT-57403 Ofc Vst, Est Level III 16:58:51 CDT Angela S qasim Gomezi Alexander Sheehan, DO, FACP CPT-94269 Ofc Vst, Est Level IV 16:32:55 CDT Angela Sherry Gomezi Alexander Sheehan, DO, FACP CPT-85479 Ofc Vst, Est Level IV 16:18:42 MOBILE PRODUCT MANAGER Angela Sherry Gomezi S Sheehan, DO, FACP CPT-43069 Ofc Vst, Est Level IV 16:22:46 CDT Angela Sherry Gomezi S Sheehan, DO, FACP CPT-16227 Ofc Vst, Est Level IV 16:33:52 CDT Angela Sherry Gomezi Alexander Sheehan, DO, FACP CPT-61968 Ofc Vst, Est Level IV 15:57:21 MOBILE PRODUCT MANAGER Angela Sherry Gomezi S Sheehan, DO, FACP CPT-50559 Ofc Vst, Est Level IV 16:03:21 CDT Angela Sherry Gomezi S Sheehan, DO, FACP CPT-11168 Ofc Vst, Est Level IV 16:28:10 CDT Angela Sherry Gomezi Alexander Sheehan, DO, FACP CPT-33985 Ofc Vst, Est Level IV 15:33:01 MOBILE PRODUCT MANAGER Angela Sherry Gomezi Alexander Sheehan, DO, FACP CPT-24197 Ofc Vst, Est Level IV 16:37:11 CDT Angela Sherry Gomezi S Sheehan, DO, FACP CPT-52154 Ofc Vst, Est Level III 10:40:43 CDT Angela S qasim Gomezi S Sheehan, DO, FACP CPT-42256 Ofc Vst, Est Level IV 15:31:08 CDT Angela Sherry Munoz Sheehan, DO, FACP CPT-25174 Ofc Vst, Est Level IV 14:06:55 MOBILE PRODUCT MANAGER Angela Sherry Munoz Sheehan, DO, FACP CPT-69809 Ofc Vst, Est Level IV 11:35:17 MOBILE PRODUCT MANAGER Angela Sherry Munoz Sheehan, DO, FACP CPT-88528 Ofc Vst, Est Level III 17:12:08 CDT Angela S qasim Gomezi Alexander Sheehan, DO, FACP CPT-54219 Ofc Vst, Est Level IV 14:39:07 CDT Angela Sherry Munoz Sheehna, DO, FACP CPT-19267 Ofc Vst, Est Level III 16:48:54 CDT Angela S qasim Munoz Sheehan, DO, FACP CPT-02851 Ofc Vst, Est Level IV 17:24:56 CDT Angela Sherry Gomezi Alexander Sheehan, DO, FACP CPT-87106 Ofc Vst, Est Level III 15:01:47 CDT Angela S qasim Gomezi Alexander Sheehan, DO, FACP CPT-21188 Ofc Vst, Est Level IV 11:46:33 CDT Angela Sherry Munoz Sissy, DO, FACP CPT-34428 Ofc Vst, Est Level V 16:42:52 CDT Angela Aisha Sheehan Angela Alexander Sheehan, DO, FACP CPT-54116 Ofc Vst, Est Level IV 09:33:53 CDT Angela Sherry Munoz Sheehan, DO, FACP CPT-42521 Ofc Vst, Est Level IV 15:34:29 CDT Angela Sherry Munoz Sissy, DO, FACP CPT-30567 Ofc Vst, Est Level IV 16:30:35 CDT Angela Sherry Sheehan, DO, FACP CPT-68514 Ofc Vst, Est Level IV 09:45:42 CDT Angela Powell lisa Sheehan [employer] [place] CPT-19692 Ofc Vst, Est Level IV 17:17:04 CDT Angela Sherry Sheehan [employer] [place] CPT-24305 Ofc Vst, Est Level III 11:25:55 MOBILE PRODUCT MANAGER Angela S uanuradhanne Sissy [employer] [place] CPT-34231 Ofc Vst, Est Level III 16:38:15 MOBILE PRODUCT MANAGER Angela S uzanne Sissy [employer] [place] CPT-40748 Ofc Vst, Est Level III 10:30:19 MOBILE PRODUCT MANAGER Angela S uzanne Sissy [employer] [place] CPT-94770 Ofc Vst, Est Level III 15:49:08 MOBILE PRODUCT MANAGER Angela S uanuradhanne Sissy [employer] [facility] [place] CPT-05804 Ofc Vst, Est Level III 17:33:10 CDT Angela S uzanne Sissy [employer] [place] CPT-16074 Ofc Vst, Est Level III 16:04:47 CDT Angela S uzanne Sissy [employer] [place] CPT-60727 Ofc Vst, Est Level III 11:21:24 CDT Angela S uzanne Sissy [employer] [place] CPT-90114 Ofc Vst, Est Level III 15:56:17 CDT Angela S uzanne Sissy [employer] [place] CPT-58958 Ofc Vst, Est Level III 10:48:16 CDT Angela S uzanne Sheehan [employer] [place] CPT-80081 Ofc Vst, Est Level III 19:48:03 CDT Angela S uzanne Sheehan [employer] [place] CPT-86550 Ofc Vst, New Level III 10:28:40 CDT Angela S uzanne Sheehan [employer] [place] Procedures Code Procedure Name Date Entry Date Standard Desc ription CPT-49213 Preventive, Est, (40-64) 20:42:16 CDT 02/03 CPT-03334 Preventive, Est, (40-64) 14:13:37 CDT 04/01 CPT-78212 Preventive, Est, (40-64) 16:58:36 MOBILE PRODUCT MANAGER 10/13 CPT-12215 Preventive, Est, (40-64) 15:32:47 MOBILE PRODUCT MANAGER 11/04 CPT-25965 Handling of specimen from office to lab 15:32:47 MOBILE PRODUCT MANAGER CPT-29619 EKG w/ Interpretation 16:42:52 CDT CPT-31749 Preventive, Est, (40-64) 12:49:32 MOBILE PRODUCT MANAGER 02/06
--- OUTSIDE RECORDS SUMMARY | 2020-06-23 08:08 | XMS REPORT | Clinical Summary ---
Author Author User, Nia Cage Organization [facility] Physician Allian e Address Unknown Phone Unavailable Allergies, Adverse [...] medical examination at a health care facility SINUSITIS, ACUTE 461.9 Resolved Angela [...] affected area daily prn ESTROGENS, CONJUGATED VAGINAL [id number] Active Angela Montoya er POTASSIUM CHLORIDE ER 10 MEQ CR-CAPS 1 PO DAILY POTASSIUM CHLORIDE 46033868835 Active Marta Dimas SYNTHROID 150 MCG TABS 1 PO daily along with 12.5 mcg dosing 12/08 LEVOTHYROXINE SODIUM 79166514524 Active Marta Dimas SYNTHROID 0.025 MG TAB 1/2 PO daily with 150 mcg dosing LEVOTHYROXINE SODIUM 58960292620 Active Marta Dimas SYNTHROID 137 MCG TABS 1 PO every other day alternating with 150 mcg LEVOTHYROXINE SODIUM 16931635359 No Longer Active Angela Sheehan ESTRACE 1 MG TABS I po daily ESTRADIOL 83644976479 Activ e Marta Wing FEOSOL 200 (65 FE) MG TABS 1 PO daily with breakfast 2 FERROUS SULFATE DRIED 41264129709 No Longer Active Angela Sheehan VITAMIN D 1000 UNIT TABS 1 PO Daily CHOLECALCIFER OL 45090960454 Active Angela Sheehna AUGMENTIN 875-125 MG TAB 1 PO BID SLOANE XICILLIN-POT CLAVULANATE 84047326808 No Longer Active Angela AQUINO'S NASAL SPRAY (DEXAMETHASONE, GENTAMICIN, SA LINE) 2 puffs each nostril TID for [address] AQUINO'S NASAL SP RAY (DEXAMETHASONE, GENTAMICIN, SALINE) No Longer Active Angela Sheehan PHENTERMINE HCL 37.5 MG CAPS 1 PO Daily PHENTER MINE HCL 71806003137 No Longer Active Angela Sheehan LOTENSIN 10 MG TAB 1 PO daily BENAZEPRIL HCL 55740010 003 Active Marta Dimas BENICAR 20 MG TABS 1/2 PO daily OLMESARTAN MEDO XOMIL 76837455195 No Longer Active Angela Sheehan LASIX 20 MG TAB 1 PO QD (on hold) FUROSEMIDE 000 97518766 No Longer Active Angela Sheehan PLENDIL 5 MG TB24 1 PO daily FELODIPINE 301085884 00 No Longer Active Angela Sheehan ALDACTONE 50 MG TABS 1 PO daily for HTN SPIRONOLA CTONE 44467044634 Active Marta ADAIR NASAL SPRAY 2 sprays each nostril TID x 7 days 01/27 DR. ADAIR NASAL SPRAY No Longer Active Marta Dimas AUGMENTIN 500-125 MG TABS 1 po BID x 7 days AMOXICILLIN- POT CLAVULANATE 71145138548 No Longer Active Marta Dimas ZITHROMAX Z-YU 250 MG TABS 2 po the first day, then 1 po x 4 da ys AZITHROMYCIN 09525604838 No Longer Active Marta Dimas POTASSIUM CHLORIDE CR 10 MEQ TBCR 1 po daily POTASSIUM CHLORIDE 90602411124 No Longer Active Angela Sheehan TOPROL XL 25 MG TB24 1 PO daily METOPROLOL SUCC INATE 19772643523 No Longer Active Angela Sheehan TAPAZOLE 10 MG TABS 6 pills PO daily METHIMAZOL E 68321889732 No Longer Active Angela ADAIR MAGIC NASAL SPRAY 2 PUFFS EACH NOSTRIL TID DR ADAIR MAGIC NASAL SPRAY No Longer Active Angela Sheehan AMOXICILLIN 500 MG CAP 1 PO TID AMOXICILLIN 633 65719746 No Longer Active Angela Sheehan DYAZIDE 37.5-25 MG CAPS 1 po daily TRIAMTERENE-HC TZ 93798533014 Active Marta Dimas STOOL SOFTENER 100 MG CAPS 2 tabs daily DOCUSATE SODIUM 25260788422 Active Angela Sheehan Immunizations Vaccine Administration Date [...] min/1.73m2 Encounters Code Encounter Date Provider Facility CPT-85978 Ofc Vst, Est Level IV 13:36:26 CDT Angela Sheehan DO, FACP CPT-64725 Ofc Vst, Est Level IV 20:09:34 SOLAR SYSTEM INSTALLER Angela Gomezi Alexander Sheehan, DO, FACP CPT-16120 Ofc Vst, Est Level III 16:58:51 CDT Angela S qasim Gomezi S Sheehan, DO, FACP CPT-14205 Ofc Vst, Est Level IV 16:32:55 CDT Angela Sherry Gomezi Alexander Sheehan, DO, FACP CPT-05776 Ofc Vst, Est Level IV 16:18:42 SOLAR SYSTEM INSTALLER Angela Sherry Gomezi Alexander Sheehan, DO, FACP CPT-78331 Ofc Vst, Est Level IV 16:22:46 CDT Angela Sherry Gomezi S Sheehan, DO, FACP CPT-58984 Ofc Vst, Est Level IV 16:33:52 CDT Angela Sherry Gomezi Alexander Sheehan, DO, FACP CPT-38164 Ofc Vst, Est Level IV 15:57:21 SOLAR SYSTEM INSTALLER Angela Sherry Gomezi Alexander Sheehan, DO, FACP CPT-36562 Ofc Vst, Est Level IV 16:03:21 CDT Angela Sherry Gomezi S Sheehan, DO, FACP CPT-13880 Ofc Vst, Est Level IV 16:28:10 CDT Angela Sherry Munoz Sissy, DO, FACP CPT-77229 Ofc Vst, Est Level IV 15:33:01 SOLAR SYSTEM INSTALLER Angela Sherry Gomezi Alexander Sheehan, DO, FACP CPT-03606 Ofc Vst, Est Level IV 16:37:11 CDT Angela Sherry Gomezi S Sheehan, DO, FACP CPT-17242 Ofc Vst, Est Level III 10:40:43 CDT Angela S qasim Gomezi S Sheehan, DO, FACP CPT-42897 Ofc Vst, Est Level IV 15:31:08 CDT Angela Sherry Gomezi Alexander Sheehan, DO, FACP CPT-36007 Ofc Vst, Est Level IV 14:06:55 SOLAR SYSTEM INSTALLER Angela Sherry Gomezi Alexander Sheehan, DO, FACP CPT-24065 Ofc Vst, Est Level IV 11:35:17 SOLAR SYSTEM INSTALLER Angela Sherry Munoz Sheehan, DO, FACP CPT-04878 Ofc Vst, Est Level III 17:12:08 CDT Angela S qasim Gomezi Alexander Sheehan, DO, FACP CPT-24850 Ofc Vst, Est Level IV 14:39:07 CDT Angela Sherry Gomezi Alexander Sheehan, DO, FACP CPT-73131 Ofc Vst, Est Level III 16:48:54 CDT Angela S qasim Munoz Sheehan, DO, FACP CPT-99022 Ofc Vst, Est Level IV 17:24:56 CDT Angela Sherry Gomezi Alexander Sheehan, DO, FACP CPT-98852 Ofc Vst, Est Level III 15:01:47 CDT Angela S qasim Gomezi Alexander Sheehan, DO, FACP CPT-76668 Ofc Vst, Est Level IV 11:46:33 CDT Angela Sherry Munoz Sheehan, DO, FACP CPT-78538 Ofc Vst, Est Level V 16:42:52 CDT Angela Aisha Sheehan Angela S Sheehan, DO, FACP CPT-80932 Ofc Vst, Est Level IV 09:33:53 CDT Angela Sherry Gomezi Alexander Sheehan, DO, FACP CPT-22081 Ofc Vst, Est Level IV 15:34:29 CDT Angela Sherry Gomezi Alexander Sissy, DO, FACP CPT-15771 Ofc Vst, Est Level IV 16:30:35 CDT Angela Sherry Sheehan, DO, FACP CPT-02669 Ofc Vst, Est Level IV 09:45:42 CDT Angela Sherry Sheehan [facility] [place] CPT-35915 Ofc Vst, Est Level IV 17:17:04 CDT Angela Sherry Sheehan [facility] [place] CPT-28765 Ofc Vst, Est Level III 11:25:55 SOLAR SYSTEM INSTALLER Angela S ugrege Sissy [facility] [place] CPT-55519 Ofc Vst, Est Level III 16:38:15 SOLAR SYSTEM INSTALLER Angela S qasim Sheehan [facility] [place] CPT-46837 Ofc Vst, Est Level III 10:30:19 SOLAR SYSTEM INSTALLER Angela S ugrege Sissy [facility] [place] CPT-64764 Ofc Vst, Est Level III 15:49:08 SOLAR SYSTEM INSTALLER Angela S qasim Sheehan [facility] [place] CPT-63919 Ofc Vst, Est Level III 17:33:10 CDT Angela S uanuradhanne Sissy [facility] [place] CPT-19869 Ofc Vst, Est Level III 16:04:47 CDT Angela S ugrege Sissy [facility] [place] CPT-83031 Ofc Vst, Est Level III 11:21:24 CDT Angela S qasim Sheehan [facility] [place] CPT-61541 Ofc Vst, Est Level III 15:56:17 CDT Angela S uzanne Sissy [facility] [place] CPT-57996 Ofc Vst, Est Level III 10:48:16 CDT Angela S uanuradhanne Sissy [facility] [place] CPT-92406 Ofc Vst, Est Level III 19:48:03 CDT Angela S ugrege Sissy [facility] [place] CPT-97940 Ofc Vst, New Level III 10:28:40 CDT Angela S qasim Sheehan [facility] [place] Procedures Code Procedure Name Date Entry Date Standard Desc ription CPT-45439 Preventive, Est, (40-64) 20:42:16 CDT 02/03 CPT-57105 Preventive, Est, (40-64) 14:13:37 CDT 04/01 CPT-54224 Preventive, Est, (40-64) 16:58:36 SOLAR SYSTEM INSTALLER 10/13 CPT-62722 Preventive, Est, (40-64) 15:32:47 SOLAR SYSTEM INSTALLER 11/04 CPT-78935 Handling of specimen from office to lab 15:32:47 SOLAR SYSTEM INSTALLER CPT-69889 EKG w/ Interpretation 16:42:52 CDT CPT-46899 Preventive, Est, (40-64) 12:49:32 SOLAR SYSTEM INSTALLER 02/06
--- OUTSIDE RECORDS SUMMARY | 2020-06-23 08:08 | XMS REPORT | Clinical Summary ---
Author Author User, Nia Cage [facility] Address Unknown Phone Unavailable Allergies, Adverse [...] Sheehan Routine general medical examination at a [facility] care facility SINUSITIS, ACUTE 461.9 Resolved Angela [...] affected area daily prn ESTROGENS, CONJUGATED VAGINAL 46685070760 Active Angela Montoya er POTASSIUM CHLORIDE ER 10 MEQ CR-CAPS 1 PO DAILY POTASSIUM CHLORIDE 97414818671 Active Marta Dimas SYNTHROID 150 MCG TABS 1 PO daily along with 12.5 mcg dosing 12/08 LEVOTHYROXINE SODIUM 95526649408 Active Marta Dimas SYNTHROID 0.025 MG TAB 1/2 PO daily with 150 mcg dosing LEVOTHYROXINE SODIUM 10378629346 Active Marta Dimas SYNTHROID 137 MCG TABS 1 PO every other day alternating with 150 mcg LEVOTHYROXINE SODIUM 31932078430 No Longer Active Angelaedgar Sheehan ESTRACE 1 MG TABS I po daily ESTRADIOL 74846180663 Activ e Marta Dimas FEOSOL 200 (65 FE) MG TABS 1 PO daily with breakfast 2 FERROUS SULFATE DRIED 69313375461 No Longer Active Angela Sheehan VITAMIN D 1000 UNIT TABS 1 PO Daily CHOLECALCIFER OL 43511624643 Active Angela Sheehan AUGMENTIN 875-125 MG TAB 1 PO BID SLOANE XICILLIN-POT CLAVULANATE 14913413232 No Longer Active Angela AQUINO'S NASAL SPRAY (DEXAMETHASONE, GENTAMICIN, SA LINE) 2 puffs each nostril TID for [address] ADAIR NASAL SP RAY (DEXAMETHASONE, GENTAMICIN, SALINE) No Longer Active Angela Sheehan PHENTERMINE HCL 37.5 MG CAPS 1 PO Daily PHENTER MINE HCL 21600458802 No Longer Active Angela Sheehan LOTENSIN 10 MG TAB 1 PO daily BENAZEPRIL HCL 79897528 003 Active Marta Dimas BENICAR 20 MG TABS 1/2 PO daily OLMESARTAN MEDO XOMIL 92999658382 No Longer Active Angela Sheehan LASIX 20 MG TAB 1 PO QD (on hold) FUROSEMIDE 000 10171693 No Longer Active Angela Sheehan PLENDIL 5 MG TB24 1 PO daily FELODIPINE 025056500 00 No Longer Active Angelaedgar Sheehan ALDACTONE 50 MG TABS 1 PO daily for HTN SPIRONOLA CTONE 97782908988 Active Marta AQUINO'Alexander NASAL SPRAY 2 sprays each nostril TID x 7 days 01/27 DR. ADAIR NASAL SPRAY No Longer Active Marat Dimas AUGMENTIN 500-125 MG TABS 1 po BID x 7 days AMOXICILLIN- POT CLAVULANATE 58667825994 No Longer Active Marta Dimas ZITHROMAX Z-YU 250 MG TABS 2 po the first day, then 1 po x 4 da ys AZITHROMYCIN 60613507858 No Longer Active Marta Dimas POTASSIUM CHLORIDE CR 10 MEQ TBCR 1 po daily POTASSIUM CHLORIDE 67367861436 No Longer Active Angela Sheehan TOPROL XL 25 MG TB24 1 PO daily METOPROLOL SUCC INATE 46026504217 No Longer Active Angela Sheehan TAPAZOLE 10 MG TABS 6 pills PO daily METHIMAZOL E 20368296954 No Longer Active Angela ADAIR MAGIC NASAL SPRAY 2 PUFFS EACH NOSTRIL TID DR ADAIR MAGIC NASAL SPRAY No Longer Active Angela Sheehan AMOXICILLIN 500 MG CAP 1 PO TID AMOXICILLIN 633 55270499 No Longer Active Angela Sheehan DYAZIDE 37.5-25 MG CAPS 1 po daily TRIAMTERENE-HC TZ 39037714158 Active Marta Dimas STOOL SOFTENER 100 MG CAPS 2 tabs daily DOCUSATE SODIUM 18431538467 Active Angela Sheehan Immunizations Vaccine Administration Date [...] min/1.73m2 Encounters Code Encounter Date Provider Facility CPT-92596 Ofc Vst, Est Level IV 13:36:26 CDT Angela Sheehan DO, FACP CPT-36583 Ofc Vst, Est Level IV 20:09:34 APARTMENT HOUSE MANAGER Angela Sherry Gomezi Alexander Sheehan, DO, FACP CPT-80563 Ofc Vst, Est Level III 16:58:51 CDT Angela S qasim Gomezi Alexander Sheehan, DO, FACP CPT-94413 Ofc Vst, Est Level IV 16:32:55 CDT Angela Sherry Gomezi Alexander Sheehan, DO, FACP CPT-06275 Ofc Vst, Est Level IV 16:18:42 APARTMENT HOUSE MANAGER Angela Sherry Gomezi S Sheehan, DO, FACP CPT-88672 Ofc Vst, Est Level IV 16:22:46 CDT Angela Sherry Gomezi S Sheehan, DO, FACP CPT-78735 Ofc Vst, Est Level IV 16:33:52 CDT Angela Sherry Gomezi Alexander Sheehan, DO, FACP CPT-19438 Ofc Vst, Est Level IV 15:57:21 APARTMENT HOUSE MANAGER Angela Sherry Gomezi S Sheehan, DO, FACP CPT-18864 Ofc Vst, Est Level IV 16:03:21 CDT Angela Sherry Gomezi S Sheehan, DO, FACP CPT-14691 Ofc Vst, Est Level IV 16:28:10 CDT Angela Sherry Gomezi Alexander Sheehan, DO, FACP CPT-71708 Ofc Vst, Est Level IV 15:33:01 APARTMENT HOUSE MANAGER Angela Sherry Gomezi Alexander Sheehan, DO, FACP CPT-31713 Ofc Vst, Est Level IV 16:37:11 CDT Angela Sherry Gomezi S Sheehan, DO, FACP CPT-98530 Ofc Vst, Est Level III 10:40:43 CDT Angela S qasim Gomezi S Sheehan, DO, FACP CPT-40651 Ofc Vst, Est Level IV 15:31:08 CDT Angela Sherry Munoz Sheehan, DO, FACP CPT-52192 Ofc Vst, Est Level IV 14:06:55 APARTMENT HOUSE MANAGER Angela Sherry Munoz Sheehan, DO, FACP CPT-71339 Ofc Vst, Est Level IV 11:35:17 APARTMENT HOUSE MANAGER Angela Sherry Munoz Sheehan, DO, FACP CPT-30827 Ofc Vst, Est Level III 17:12:08 CDT Angela S qasim Gomezi Alexander Sheehan, DO, FACP CPT-28330 Ofc Vst, Est Level IV 14:39:07 CDT Angela Sherry Munoz Sheehan, DO, FACP CPT-41761 Ofc Vst, Est Level III 16:48:54 CDT Angela S qasmi Munoz Sheehan, DO, FACP CPT-71544 Ofc Vst, Est Level IV 17:24:56 CDT Angela Sherry Gomezi Alexander Sheehan, DO, FACP CPT-52145 Ofc Vst, Est Level III 15:01:47 CDT Angela S qasim Gomezi Alexander Sheehan, DO, FACP CPT-81950 Ofc Vst, Est Level IV 11:46:33 CDT Angela Sherry Munoz Sissy, DO, FACP CPT-06256 Ofc Vst, Est Level V 16:42:52 CDT Angela Aisha Sheehan Angela Alexander Sheehan, DO, FACP CPT-33576 Ofc Vst, Est Level IV 09:33:53 CDT Angela Sherry Munoz Sheehan, DO, FACP CPT-78276 Ofc Vst, Est Level IV 15:34:29 CDT Angela Sherry Munoz Sissy, DO, FACP CPT-42572 Ofc Vst, Est Level IV 16:30:35 CDT Angela Sherry Sheehan, DO, FACP CPT-53430 Ofc Vst, Est Level IV 09:45:42 CDT Angela Powell lisa Sheehan [facility] [place] CPT-70926 Ofc Vst, Est Level IV 17:17:04 CDT Angela Sherry Sheehan [facility] [place] CPT-90105 Ofc Vst, Est Level III 11:25:55 APARTMENT HOUSE MANAGER Angela S uanuradhanne Sissy [facility] [place] CPT-92369 Ofc Vst, Est Level III 16:38:15 APARTMENT HOUSE MANAGER Angela S uzanne Sissy [facility] [place] CPT-66863 Ofc Vst, Est Level III 10:30:19 APARTMENT HOUSE MANAGER Angela S uzanne Sissy [facility] [place] CPT-48147 Ofc Vst, Est Level III 15:49:08 APARTMENT HOUSE MANAGER Angela S uanuradhanne Sissy [facility] [place] CPT-73217 Ofc Vst, Est Level III 17:33:10 CDT Angela S uzanne Sissy [facility] [place] CPT-40387 Ofc Vst, Est Level III 16:04:47 CDT Angela S uzanne Sissy [facility] [place] CPT-60733 Ofc Vst, Est Level III 11:21:24 CDT Angela S uzanne Sissy [facility] [place] CPT-80550 Ofc Vst, Est Level III 15:56:17 CDT Angela S uzanne Sissy [facility] [place] CPT-98999 Ofc Vst, Est Level III 10:48:16 CDT Angela S uzanne Sheehan [facility] [place] CPT-50761 Ofc Vst, Est Level III 19:48:03 CDT Angela S uzanne Sheehan [facility] [place] CPT-64731 Ofc Vst, New Level III 10:28:40 CDT Angela S uzanne Sheehan [facility] [place] Procedures Code Procedure Name Date Entry Date Standard Desc ription CPT-55787 Preventive, Est, (40-64) 20:42:16 CDT 02/03 CPT-03393 Preventive, Est, (40-64) 14:13:37 CDT 04/01 CPT-01973 Preventive, Est, (40-64) 16:58:36 APARTMENT HOUSE MANAGER 10/13 CPT-48568 Preventive, Est, (40-64) 15:32:47 APARTMENT HOUSE MANAGER 11/04 CPT-22802 Handling of specimen from office to lab 15:32:47 APARTMENT HOUSE MANAGER CPT-20804 EKG w/ Interpretation 16:42:52 CDT CPT-45440 Preventive, Est, (40-64) 12:49:32 APARTMENT HOUSE MANAGER 02/06
--- OUTSIDE RECORDS SUMMARY | 2020-06-23 08:08 | XMS REPORT | Clinical Summary ---
Author Author User, Nia Cage Organization [facility] Physician [facility] sarah Address Unknown Phone Unavailable Allergies, Adverse Reactions, [...] affected area daily prn ESTROGENS, CONJUGATED VAGINAL 81109897435 Active Angela Montoya er POTASSIUM CHLORIDE ER 10 MEQ CR-CAPS 1 PO DAILY POTASSIUM CHLORIDE 27169924563 Active Marta Dimas SYNTHROID 150 MCG TABS 1 PO daily along with 12.5 mcg dosing 12/08 LEVOTHYROXINE SODIUM 20852290369 Active Marta Dimas SYNTHROID 0.025 MG TAB 1/2 PO daily with 150 mcg dosing LEVOTHYROXINE SODIUM 92927855197 Active Marta Dimas SYNTHROID 137 MCG TABS 1 PO every other day alternating with 150 mcg LEVOTHYROXINE SODIUM 10660603671 No Longer Active Angela Sheehan ESTRACE 1 MG TABS I po daily ESTRADIOL 39686541390 Activ e Marta Dimas FEOSOL 200 (65 FE) MG TABS 1 PO daily with breakfast 2 FERROUS SULFATE DRIED 89392396487 No Longer Active Angela Sheehan VITAMIN D 1000 UNIT TABS 1 PO Daily CHOLECALCIFER OL 66942279797 Active Angela Sheehan AUGMENTIN 875-125 MG TAB 1 PO BID SLOANE XICILLIN-POT CLAVULANATE 59232079240 No Longer Active Angela AQUINO'S NASAL SPRAY (DEXAMETHASONE, GENTAMICIN, SA LINE) 2 puffs each nostril TID for [address] AQUINO'S NASAL SP RAY (DEXAMETHASONE, GENTAMICIN, SALINE) No Longer Active Angela Sheehan PHENTERMINE HCL 37.5 MG CAPS 1 PO Daily PHENTER MINE HCL 10892811023 No Longer Active Angela Sheehan LOTENSIN 10 MG TAB 1 PO daily BENAZEPRIL HCL 04288458 003 Active Marta Dimas BENICAR 20 MG TABS 1/2 PO daily OLMESARTAN MEDO XOMIL 57110084472 No Longer Active Angela Sheehan LASIX 20 MG TAB 1 PO QD (on hold) FUROSEMIDE 000 99256699 No Longer Active Angela Sheehan PLENDIL 5 MG TB24 1 PO daily FELODIPINE 995186210 00 No Longer Active Angela Sheehan ALDACTONE 50 MG TABS 1 PO daily for HTN SPIRONOLA CTONE 10564247698 Active Marta AQUINO'Alexander NASAL SPRAY 2 sprays each nostril TID x 7 days 01/27 DR. ADAIR NASAL SPRAY No Longer Active Marta Dimas AUGMENTIN 500-125 MG TABS 1 po BID x 7 days AMOXICILLIN- POT CLAVULANATE 25145375110 No Longer Active Marta Dimas ZITHROMAX Z-YU 250 MG TABS 2 po the first day, then 1 po x 4 da ys AZITHROMYCIN 97747304225 No Longer Active Marta Dimas POTASSIUM CHLORIDE CR 10 MEQ TBCR 1 po daily POTASSIUM CHLORIDE 52979267066 No Longer Active Angela Sheehan TOPROL XL 25 MG TB24 1 PO daily METOPROLOL SUCC INATE 95717310797 No Longer Active Angela Sheehan TAPAZOLE 10 MG TABS 6 pills PO daily METHIMAZOL E 81774166168 No Longer Active Angela ADAIR MAGIC NASAL SPRAY 2 PUFFS EACH NOSTRIL TID DR ADAIR MAGIC NASAL SPRAY No Longer Active Angela Sheehan AMOXICILLIN 500 MG CAP 1 PO TID AMOXICILLIN 633 57476433 No Longer Active Angela Sheehan DYAZIDE 37.5-25 MG CAPS 1 po daily TRIAMTERENE-HC TZ 70278534246 Active Marta Dimas STOOL SOFTENER 100 MG CAPS 2 tabs daily DOCUSATE SODIUM 95909902672 Active Angela Sheehan Immunizations Vaccine Administration Date [...] E&M - 9279-1 14 /min Resp rate Diagnostic Results Date Name Value Unit Range Description Clinical Lists Update: CMP,Chol,Trig,TSH ,Free T4 - Chemistry alkaline phosphatase, serum 37 U/L albumin, serum 4.1 g/dL calcium, serum 9.5 mg/dL chloride, serum 100 mmol/L cholesterol, serum 183 mg/dL carbon dioxide, venous blood 27.0 mmol/L creatinine, serum 1.0 mg/dL thyroxine, serum, free 0.95 ng/dL thyroid stimulating hormone, serum 1.44 u[iU]/mL potassium, serum 3.6 mmol/L protein, total, serum 6.9 g/dL aspartate aminotransferase (SGOT), serum 15 U/L alanine aminotransferase (SGPT), serum 14 U/L bilirubin, serum, total 0.3 mg/dL triglyceride, serum, fasting 234 mg/dL sodium, serum 137 mmol/L anion gap, serum 14 glucose, plasma fasting 90 mg/dL Estimated Glomerular Filtration Rate (calc) 62 mL/ min/1.73m2 urea nitrogen, blood 21 mg/dL Clinical Lists Update: CMP,FLP,TSH,FREE T4 - Chemistry alkaline phosphatase, serum 38 U/L albumin, serum 4.1 g/dL urea nitrogen, blood 17 mg/dL calcium, serum 9.8 mg/dL chloride, serum 99 [...] serum 12 cholesterol/HDL ratio, serum, percent 5.0 Estimated Glomerular Filtration Rate (calc) 56 mL/ min/1.73m2 glucose, plasma fasting 87 mg/dL Encounters Code Encounter Date Provider Facility CPT-94871 Ofc Vst, Est Level IV 13:36:26 CDT Angela Sheehan DO, FACP CPT-44016 Ofc Vst, Est Level IV 20:09:34 TEAMSITE DEVELOPER Angela Sheehan DO, FACP CPT-55791 Ofc Vst, Est Level III 16:58:51 CDT Angela Sheehan DO, FACP CPT-75968 Ofc Vst, Est Level IV 16:32:55 CDT Angela Sheehan DO, FACP CPT-14266 Ofc Vst, Est Level IV 16:18:42 TEAMSITE DEVELOPER Anegla Sherry Munoz Sheehan, DO, FACP CPT-79210 Ofc Vst, Est Level IV 16:22:46 CDT Angela Sherry Munoz Sheehan, DO, FACP CPT-11484 Ofc Vst, Est Level IV 16:33:52 CDT Angela Sherry Munoz Sheehan, DO, FACP CPT-44772 Ofc Vst, Est Level IV 15:57:21 TEAMSITE DEVELOPER Angela Sherry Munoz Sheehan, DO, FACP CPT-71835 Ofc Vst, Est Level IV 16:03:21 CDT Angela Sherry Munoz Sheehan, DO, FACP CPT-28457 Ofc Vst, Est Level IV 16:28:10 CDT Angela Sherry Munoz Sheehan, DO, FACP CPT-20971 Ofc Vst, Est Level IV 15:33:01 TEAMSITE DEVELOPER Angela Sherry Munoz Sheehan, DO, FACP CPT-13473 Ofc Vst, Est Level IV 16:37:11 CDT Angelaedgar Munoz Sheehan, DO, FACP CPT-35588 Ofc Vst, Est Level III 10:40:43 CDT Angela Alexander Munoz Sheehan, DO, FACP CPT-87530 Ofc Vst, Est Level IV 15:31:08 CDT Angela Sherry Munoz Sheehan, DO, FACP CPT-38727 Ofc Vst, Est Level IV 14:06:55 TEAMSITE DEVELOPER Angela Munoz Sheehan, DO, FACP CPT-15425 Ofc Vst, Est Level IV 11:35:17 TEAMSITE DEVELOPER Angela Sherry Munoz Sheehan, DO, FACP CPT-37575 Ofc Vst, Est Level III 17:12:08 CDT Angela S qasim Gomezi Alexander Sheehan, DO, FACP CPT-64281 Ofc Vst, Est Level IV 14:39:07 CDT Angela Sherry Munoz Sissy, DO, FACP CPT-07600 Ofc Vst, Est Level III 16:48:54 CDT Angela S qasim Munoz Sissy, DO, FACP CPT-28663 Ofc Vst, Est Level IV 17:24:56 CDT Angela Sherry Harrisonner Angela Alexander Sissy, DO, FACP CPT-30826 Ofc Vst, Est Level III 15:01:47 CDT Angela S qasim Munoz Sissy, DO, FACP CPT-28067 Ofc Vst, Est Level IV 11:46:33 CDT Angela Sherry Munoz Sissy, DO, FACP CPT-87432 Ofc Vst, Est Level V 16:42:52 CDT Angela Aisha Gomezi Alexander Sissy, DO, FACP CPT-51317 Ofc Vst, Est Level IV 09:33:53 CDT Angela Sherry gonzalez Sheehan Angela Munoz Sissy, DO, FACP CPT-78933 Ofc Vst, Est Level IV 15:34:29 CDT Angela Sherry gonzalez Sissy Angela Munoz Sissy, DO, FACP CPT-23225 Ofc Vst, Est Level IV 16:30:35 CDT Angela Sherry gonzalez Sissy Angela Alexander Sissy, DO, FACP CPT-61394 Ofc Vst, Est Level IV 09:45:42 CDT Angela Sherry gonzalez Sissy [facility] [place] CPT-00785 Ofc Vst, Est Level IV 17:17:04 CDT Angela Sherry lisa Sheehan [facility] [place] CPT-01049 Ofc Vst, Est Level III 11:25:55 TEAMSITE DEVELOPER Angela S uzanne Sheehan [facility] [place] CPT-84492 Ofc Vst, Est Level III 16:38:15 TEAMSITE DEVELOPER Angela S uzanne Sheehan [facility] [place] CPT-01980 Ofc Vst, Est Level III 10:30:19 TEAMSITE DEVELOPER Angela S uzanne Sheehan [facility] [place] CPT-95788 Ofc Vst, Est Level III 15:49:08 TEAMSITE DEVELOPER Angela S uzanne Sheehan [facility] [place] CPT-10198 Ofc Vst, Est Level III 17:33:10 CDT Angela S uzanne Sheehan [facility] [place] CPT-78857 Ofc Vst, Est Level III 16:04:47 CDT Angela S uzanne Sheehan [facility] [place] CPT-01960 Ofc Vst, Est Level III 11:21:24 CDT Angela S uzanne Sheehan [facility] [place] CPT-00955 Ofc Vst, Est Level III 15:56:17 CDT Angela S uzanne Sheehan [facility] [place] CPT-73257 Ofc Vst, Est Level III 10:48:16 CDT Angela S uzanne Sheehan [facility] [place] CPT-61950 Ofc Vst, Est Level III 19:48:03 CDT Angela S uzanne Sheehan [facility] [place] CPT-59917 Ofc Vst, New Level III 10:28:40 CDT Angela S uzanne Sheehan [facility] [place] Procedures Code Procedure Name Date Entry Date Standard Desc ription CPT-92062 Preventive, Est, (40-64) 20:42:16 CDT 02/03 CPT-10677 Preventive, Est, (40-64) 14:13:37 CDT 04/01 CPT-71894 Preventive, Est, (40-64) 16:58:36 TEAMSITE DEVELOPER 10/13 CPT-10507 Preventive, Est, (40-64) 15:32:47 TEAMSITE DEVELOPER 11/04 CPT-75110 Handling of specimen from office to lab 15:32:47 TEAMSITE DEVELOPER CPT-42452 EKG w/ Interpretation 16:42:52 CDT CPT-79389 Preventive, Est, (40-64) 12:49:32 TEAMSITE DEVELOPER 02/06
--- OUTSIDE RECORDS SUMMARY | 2020-06-23 08:08 | XMS REPORT | Continuity of Care Document ---
Author Author NIA BENTLEY Organization [facility] Address Unknown Phone Unavailable Care Team Providers Care Stratigrapher Name Role Phone [facility] Unavailable Unavailable Problems Problem Status Onset Date Classification Date Reported Comments Source Atypical ductal hyperplasia of right breast Active 12/11/2019 06/23/2020 [facility], Encounter for screening for osteoporosis Active Diagnosis 06/23/2020 [facility], History of foot fracture Active Diagnosis 06/23/2020 [facility], Hypothyroidism, unspecified type Active Diagnosis 0 06/23/2020 [facility], Breast cancer screening, high risk patient Active Diagnosis 06/23/2020 [facility], At high risk for breast cancer Active Diagnosis 0 06/23/2020 [facility], Atypical ductal hyperplasia of right breast Active Diagnosis 06/23/2020 [facility], Vitamin D deficiency Active Diagnosis 06/23/2020 [facility], Postmenopausal Active Diagnosis 06/23/2020 [facility], Medications Medication Details Route Status Patient Instructions Ordering Provider Order Date Source benazepriL (LOTENSIN) 10 mg tablet Take 10 mg by mouth daily. Active [facility] , cholecalciferol (VITAMIN D-3) 1,000 units tablet Take 1,000 Units by mouth daily. 25mcg Active [facility], docusate sodium (STOOL SOFTENER PO) Take by mouth. Active [facility], levothyroxine (SYNTHROID) 175 mcg tablet Take 175 mcg by mouth daily 30 minutes before breakfast. Active [facility], potassium chloride (MICRO-K) 10 mEq capsule Take 10 mEq by mouth daily. Take with a meal and a full glass of water. Active [facility], spironolactone (ALDACTONE) 50 mg tablet Take 50 mg by mouth daily. Take with food. Active [facility], TRIAMTERENE PO Take 25 mg by m outh. Active [facility], Allergies, Adverse Reactions, Alerts No Known Medication Allergies Immunizations Immunization Date Given Site Status Last Updated Comments Source Evaluated Forecast 06/23/2020 completed table.evaluated-forecast { border-collapse: collapse; font-family: Kopperl, Helvetica, sans-serif; } .evaluated-forecast th, .evaluated-forecast td { paddinpx 8px; } .evaluated-forecast thead th { background: #[id number]; text-transform: lowercase; text-align: left; font-size: 15px; color: #fff; } .evaluated-forecast tr { border: 1px solid #[id number]; } .evaluated- forecast tbody tr { border-bottom: 1px solid #[id number]; } .evaluated- forecast tbody tr:nth-child(odd) { background: #[id number]; } .e valuated-forecast tbody th, .evaluated-forecast tbody tr td { border- right: 1px solid #[id number]; } .evaluated-forecast tfoot th { background: #[id number]; text-align: left; font-weight: normal; font-size: 10px; color: #fff; } .evaluated-forecast tr *:nth- child(3), .evaluated-forecast tr *:nth-child(4) { text-align: right; } MMR 1962 VERONICA (Varivax) 1962 Tdap 1968 Zoster Subunit (Shingrix) 2011 Influenza IIV4 MDV 05/25/2020 PPSV23 (Pneumovax 23) 2026 Polio, UF [id number]^Too Old^LN Hib, UF WF59979-4^Too Old^LN Hep B, UF SO20988-8^Too Old^LN Hep A, UF OF89329-9^Too Old^LN Rotavirus, UF MJ50807-0^Too Old^LN Meningococcal, UF XS54983-1^Too Old^LN HPV, UF NM90701-5^Too Old^LN [id number], Influenza IIV4 PFree 09/15/2019 Left Arm Not Given [id number], Influenza IIV4 PFree 09/06/2016 Left Arm Not Given [id number], Results Order Name Results Value Reference Range Date Interpretation Comments Source 25-OH VITAMIN D (D2 + D3) Vitamin D( 25-OH)Total 32.9 30 - 80 04/20/2020 [facility], COMPREHENSIVE METABOLIC PANEL Sodium 138 137 - 147 04/19/2020 [facility], COMPREHENSIVE METABOLIC PANEL Potass ium 4.3 3.5 - 5.1 04/19/2020 [facility], COMPREHENSIVE METABOLIC PANEL Chlori de 102 98 - 110 04/19/2020 [facility], COMPREHENSIVE METABOLIC PANEL Glucos e 106 70 - 100 04/19/2020 [facility], COMPREHENSIVE METABOLIC PANEL Blood Urea Nitrogen 23 7 - 25 04/19/2020 [facility], COMPREHENSIVE METABOLIC PANEL Creati nine 1.05 0.4 - 1.00 04/19/2020 [facility], COMPREHENSIVE METABOLIC PANEL Calciu m 11.3 8.5 - 10.6 04/19/2020 [facility], COMPREHENSIVE METABOLIC PANEL Total Protein 7.7 6.0 - 8.0 04/19/2020 [facility], COMPREHENSIVE METABOLIC PANEL Total Bilirubin 0.3 0.3 - 1.2 04/19/2020 [facility], COMPREHENSIVE METABOLIC PANEL Albumi n 4.4 3.5 - 5.0 04/19/2020 [facility], COMPREHENSIVE METABOLIC PANEL Alk Ph osphatase 42 U/L 25 - 110 04/19/2020 [facility], COMPREHENSIVE METABOLIC PANEL AST (S GOT) 19 U/L 7 - 40 04/19/2020 [facility], COMPREHENSIVE METABOLIC PANEL CO2 30 21 - 30 04/19/2020 [facility], COMPREHENSIVE METABOLIC PANEL ALT (S GPT) 26 U/L 7 - 56 04/19/2020 [facility], COMPREHENSIVE METABOLIC PANEL Anion Gap 6 3 - 12 04/19/2020 [facility], COMPREHENSIVE METABOLIC PANEL eGFR N on 54 mL/min 60 04/19/2020 The eGFR is not validated fo r use in drug dosing adjustments. Continue to use estimated creatinine clearance per dosing reference text. Please contact the Clinical Pharmacist for questions. [facility] , COMPREHENSIVE METABOLIC PANEL eGFR A frican Stateless 60 60 mL/min 04/19/2020 The eGFR is not validated fo r use in drug dosing adjustments. Continue to use estimated creatinine clearance per dosing reference text. Please contact the Clinical Pharmacist for questions. [facility] , COMPREHENSIVE METABOLIC PANEL Lab In terpretation Abnormal 04/19/2020 [facility], Pathology Reports No Data Provided for This Section Diagnostic Reports Report Value Date Source BONE DENSITY SPINE/HIP Low b one mass (osteopenia). General comments regarding interpretation of [...] Jad Bhagat M.D. on 04/19/2020 1:01 PM. [facility] , MRI BREAST WOW CONT LMTD SCREEN RANJEET ASSESSMENT: BIRAD 2-Benign RECOMMENDATION:Screening breast MRI in 1 year. [facility], Consultation Notes Results Value Date Source Progress Note Kellen Vasquez RN - 03/17/2020 1:26 PM April Lifetime Risk of Breast Cancer Risk Evaluation Tool sent to patient via [employer] attachment. 03/17/2020 [facility] , Progress Note Lianet Morley - 03/17/2020 11:00 AM CDTthe patient has received the documents and they have provided verbal consent 03/17/2020 [facility], Progress Note Niharika Patrick A PRN - 03/17/2020 11:00 AM CDT Telehealth Visit NoteDate of Service: 03/17/2020Subjective: Obtained patient's verbal consent to treat them and their agreement to [facility] financial policy and NPP via this telehealth visit during the [facility] Emergency Nia Boothe is a 60 y.o. female.Diagnosis and Reason for Visit: Right Breast Atypical Ductal Hyperplasia Physician Info:Referring Physician: Dr Catalina Bueno Name and Number: Breast Surgery, PCP: Dr Angela Sheehan, [place], [place], Location of Films: PACS Reproductive History Menarche: Age 11Number of pregnancies: 4Number of live births: 2Age of first live : Age 28Breastfeed: Yes If Yes, how long? Total of 11 monthsOral Contraceptive Use: Patient describes taking oral contraceptives age 19 to 33 with gaps related to pregnancies.Fertility Treatments: Patient describes taking Clomid for 4 months at age 27. Menopause Status Postmenopausal Age of last period: ~ Age 48Gynecologic Surgical History: D and C ~ 1992. LAV BSO Anterior Repair and Adhesiolysis 06/08/11.Hormone Replacement Therapy (HRT) Use: Patient describes taking HRT after hysterectomy age 51 to 59 (stopped 12/31/19). Family [...] to be 2020 Previous Genetic Testing: (Self, Family)Self/Family Exact Results/Specific Mutations/Variances None HISTORY OF PRESENT ILLNESS: Patient presents to the Breast Cancer Prevention Clinic to establish care. She was referred to my clinic by Catalina Russell MD. She is at risk of the development of breast cancer due to a personal history of ADH. The patient was in her usual state of health and had bilateral screening mammogram on 10/14/2019; BIRAD 0. Right DMAMM was performed on 10/29/2019; BIRAD 4 - suspicious. She then had a right MTBX 11/11/2019 which not ed ADH. F/U right DMAMM on 12/15/2019; BIRAD 4. Outside images were reviewed and consensus to F/U with right DMAMM in 6 months and establishing in HR for further treatment or screening recommendations. She is feeling well, denies changes in the breasts at this time. Review of SystemsNo unusual fatigue or distress at this visit. Working [employer] of [employer]). Works in the [employer] x 18 years. Currently working from home due to [employer]. Lives in [place], [place]. to [place] x 38 years. Has a rescue dog named Nannette.(2) children. (1) daughter and (1) son. Weight (BMI 33.22; # 215)Has struggled with weight her entire life. Genetic testing: none. No fever or chills. No headache or dizziness. No SOB or cough. No chest pain or palpations.Episodes of PVS in the past. Current therapy [...] skin or changing moles. No FH of melanomaPatient has an unknown smoking status. She has never used smokeless tobacco.Patient reports current alcohol use of about 4.0 standard drinks of alcohol per week.Current exercise: None regularly. Walks ar ound the block occasionally. No anxiety or depressionObjective: benazepriL (LOTENSIN) 10 mg tablet Take 10 mg by mouth daily. cholecalciferol (VITAMIN D-3) 1,000 units tablet Take 1,000 Units by mouth daily. 25mcg docusate sodium (STOOL SOFTENER PO) Take by mouth. levothyroxine (SYNTHROID) 175 mcg tablet Take 175 mcg by mouth daily 30 minutes before breakfast. • potassium chloride (MICRO-K) 10 mEq capsule Take 10 mEq by mouth daily. Take with a meal and a full glass of water. spironolactone (ALDACTONE) 50 mg tablet Take 50 mg by mouth daily. Take with food. TRIAMTERENE PO Take 25 mg by mouth. Vitals: 03/17/20 1044 03/17/20 1046 Weight: 97.5 kg (215 lb) PainSc: Zero Body mass index is 33.22 kg/m . Physical ExamConstitutional: Appearance: Normal appearance. She is obese. HENT: Head: Normocephalic. Eyes: General: No scleral icterus.Neck: Musculoskeletal: Normal range of motion. Pulmonary: Effort: Pulmonary effort is normal. Musculoskeletal: Normal range of motion. Skin: Findings: No rash. Neurological: Mental Status: She is alert and oriented to person, place, and time. Psychiatric: Mood and Affect: Mood no rmal. Behavior: Behavior normal. Thought Content: Thought content normal. Judgment: Judgment normal. Breast Health History and Imaging:Date Test Results 04/07/14 Bilateral Screening Mammogram BI-RADS 2 07/07/15 Bilateral Screening Mammogram BI-RADS 2 09/04/16 Bilateral Screening Mammogram BI-RADS 2 09/05/17 Bilateral Screening Mammogram BI-RADS 2 10/07/18 Bilateral Screening Mammogram BI-RADS 2 10/14/19 Bilateral Screening Mammogram BI-RADS 0 10/29/19 Right DX Mammogram BI-RADS 4 11/11/19 Right Breast Stereotactic Needle BX Diagnosis:A. Breast, right "not calcified" stereotactic needle biopsy - mild duct ectasia; no malignancy identified.B. Breast, right "calcified" stereotactic needle biopsy - [atypical intraductal hyperplasia with columnar cell change] associated microcalcifications. 12/15/19 Right DX Mammogram BI-RADS 4 12/21/19 Pathology ConsultationDate Collected: 11/11/19Right Breast Stereotactic Needle BX Final Diagnosis: A. Outside case "[id number]" (Date collected: 11/11/2019): 1. Breast, right "not calcified," stereotactic needle biopsy: Benign breast tissue. 2. Breast, right "calcified," stereotactic needle biopsy: Atypical ductal hyperplasia with columnar cell change and associated microcalcifications. See comment. Comment: Number of foci of ADH: Greater than 2 ADH is incidental or associated with the target (mass or calcifications): Associated with target (calcifications) Presence of individual cell necrosis: No Presence of micropapillary features: Yes Breast Cancer Risk AssessmentThis risk assessment is regarding Nia Boothe on 03/17/2020.It was a pleasure meeting you today in the High Risk Breast Clinic at [facility]. You were seen by Niharika Patrick APRN. We hope you found todays visit helpful. Any physicians you have designated will receive a letter with our consultation assessment and recommendations. Below you will find some of the major points outlined at our visit today.Acute issues addressed today: Elevated risk for the development of breast cancer. Risk AssessmentGail Model - this includes assessment based on your age, reproductive history and first degree relatives with breast cancer and your personal history of breast biopsies.Your 5 year risk of developing breast cancer (calculated at 60 y.o.): 3.9 %Average womens risk: 1.7 %Your lifetime risk of developing breast cancer (to age 90): 19.6 % Average womens risk: 9.3 %Tyrer-Cuzick Model this model includes a more extensive assessment of risk factors, including age, height, weight, reproductive history, benign breast lesions, history of hormone replacement therapy use and a more extensive evaluation of your family history. Your 10 year risk of developing breast cancer (calculated at 60 y.o.): 15.0 %Average womens risk: 3.6 %Your lifetime risk of developing breast cancer: 34.8 %Average womens risk: 9.3 % Genetic Testing Recommendations:Was genetic testing recommended today? no Breast Cancer Screening Recommendations:In addition to a clinical breast exam every 6 months, our screening imaging recommendations are:Mammogram: 12 months Include tomosynthesis (3D) if available? yesUltrasound (ABUS): n/aBreast MRI: 12 months. Abbreviated MRI due to elevated risk. Prevention Recommendations: Was referral to a breast surgeon for preventive mastectomy discussed today? noWas referral to a boiler out for preventive oophorectomy discussed today? no Was a chemoprevention medication discussed today? yesIf so, which medication and potential side effects did we discuss with you today: Raloxifene. Will need BMD if she elects to take RX. Five years of Raloxifene (Evista) therapy is associated with an ~40% reduction in breast cancer risk but is not associated with a survival advantage. As shown in the CORE (Continuing Outcomes Relevant to Evista) trial, prolonged raloxifene administration appears safe and beneficial for both osteoporosis and breast cancer prevention. Discussed the potential side effects of Evista including but not limited to hot flashes, flu-like syndrome, joint pain, rhinitis and deep vein thrombosis. Evista is an oral medication to be taken by mouth with a full glass of water at the same time each day. Patient will consider, however, she would like to work on lifestyle; weight reduction first. Additional prevention recommendations:- Maintain a healthy body weight. - Exercise regularly (150 minutes per week).- Alcohol in moderation (less than 4 drinks per week). Please contact us with any future questions or concerns by calling:For Niharika Patrick APRN: Kellen If you would like to refer a family member, they can call to schedule an assessment. PLAN: 1. History of ADH. Elevated risk for the development of breast cancer (34.8% TC). 2. Breast health: Recommend annual mammogram (REGINA) alternating with breast MRI every 6 months with CBE. Reviewed signs to report including but not limited to a lump, swelling, skin irritation, dimpling, pain, nipple retraction, redness of nipple or breast skin, scaly nipple or breast skin, nipple discharge, change in the size or shape of the breast. Patient verbalized understanding and office phone number provided. Discussed the purpose for the abbreviated breast MRI. Discussed the pros and cons of breast MRI. It has the potential advantage of increased sensitivity over mammogram. There is a 10-15% chance of detecting an ipsilateral breast and 3-5% chance of detecting contralateral breast chance missed by mammography. However, there is a 20% risk of false positive exam with need for additional CNB that could be negative.The abbreviated examination is performed at a decreased cost of $500.00 out of pocket. Patient would like to schedule now. 3. Bone health: recommend BMD and Vitamin D level. Discussed raloxifene. Patient will defer at this time.4. Lifestyle: patient will focus on weight reduction and increased exercise. 5. RTC in 09/2020 with bilateral mammogram (REGINA) and CBE. Niharika Patrick APRN Collaborating physician: CARLOS Lynn # [phone] have spent 61 minutes with the patient today. 61 minutes spent face to face via telehealth in evaluation, management, counseling and coordination of care functions. Total time 61 minutes. 03/17/2020 [facility], Progress Note Kellen Vasquez RN - 03/09/2020 9:53 AM CDT9:45 AM Niharika Patrick APRN called patient to get her set up for TELEHEALTH- NEW PT visit. She does not have MyChart. Instructions and activation code sent t o her.Requested that she do this FELIX so that we can get her scheduled. She is planning to install MyChart and Zoom on her mobile phone later today. 03/09/2020 [facility], Misc. Note Telephone Encounter - Marlene Noonan RN - 02/24/2020 12:06 PM CDT Navigation Breast Cancer Prevention/High Risk Intake AssessmentPatie nt Name: Nia Brian TlMRN: [id number]: 1Age: 60 y.o.Insurance: BCBS Appointment Info: Original Appointment date: 03/08/20. Appointment to be rescheduled.Diagnosis and Reason for Visit: Right Breast Atypical Ductal Hyperplasia Physician Info: ? Referring Physician: Dr Catalina Russell Contact Name and Number: Breast Surgery, PCP: Dr Angela Sheehan, [place], [place], Location of Films: PACSReproductive HistoryMenarche: Age 11Number of pregnancies: 4Number of live births: 2Age of first live : Age 28Breastfeed: Yes If Yes, how long? Total of 11 monthsOral Contraceptive Use: Patient describes taking oral contraceptives age 19 to 33 with gaps related to pregnancies.Fertility Treatments: Patient describes taking Clomid for 4 months at age 27. Menopause Status Postmenopausal Age of last period: ~ Age 48Gynecologic Surgical History: D and C ~ 1992. LAVH BSO Anterior Repair and Adhesiolysis 06/08/11.Hormone Replacement Therapy (HRT) Use: Patient describes taking HRT after hysterectomy age 51 to 59 (stopped 12/31/19). Family History: Paternal Grandmother DX with widespread cancer but specific details not known.Paternal Grandfather DX Colon Cancer.Paternal Uncle (Miguel Ángel) DX Prostate cancer.Previous Genetic Testing: (Self, Family)Self/Family Exact Results/Specific Mutations/Variances None Breast Health History and Imaging:Date Test Results 04/07/14 Bilateral Screening Mammogram BI-RADS 2 07/07/15 Bilateral Screening Mammogram BI-RADS 2 09/04/16 Bilateral Screening Mammogram BI-RADS 2 09/05/17 Bilateral Screening Mammogram BI-RADS 2 10/07/18 Bilateral Screening Mammogram BI-RADS 2 10/14/19 Bilateral Screening Mammogram BI-RADS 0 10/29/19 Right DX Mammogram BI-RADS 4 11/11/19 Right Breast Stereotactic Needle BX Diagnosis:A. Breast, right "not calcified" stereotactic needle biopsy - mild duct ectasia; no malignancy identified.B. Breast, right "calcified" stereotactic needle biopsy - [atypical intraductal hyperplasia with columnar cell change] associated microcalcifications. 12/15/19 Right DX Mammogram BI-RADS 4 12/21/19 Pathology ConsultationDate Collected: 11/11/19Right Breast Stereotactic Needle BX Final Diagnosis: A. Outside case "[id number]" (Date collected: 11/11/2019): 1. Breast, right "not calcified," stereotactic needle biopsy: Benign breast tissue. 2. Breast, right "calcified," stereotactic needle biopsy: Atypical ductal hyperplasia with columnar cell change and associated microcalcifications. See comment. Comment: Number of foci of ADH: Greater than 2 ADH is incidental or associated with the target (mass or calcifications): Associated with target (calcifications) Presence of individual cell necrosis: No Presence of micropapillary features: Yes RISK MODELS Tyrer Frandyzick: 10 Year Risk: 15% 10 Year Population Risk: 3.6% Lifetime Risk: 34.8% Lifetime Population Risk: 9.3% TONEY Scale: 5 Year Risk: 3.9% Average Woman 5 Year Risk: 1.7% Lifetime Risk: 19.6% Lifetime Average Woman Risk: 9.3% 02/24/2020 [facility], [facility]. Note Telephone Encounter - Kiersten Swartz RN - 12/25/2019 11:15 AM CSTPatient calls stating she received a VM from Dr. Russell with information about [facility] and she would like to move forward with scheduling. Referral placed and patient educated that she will be contacted by navigation to schedule an appointment. Patient verbalizes understanding. All questions answered. Patient given contact information for additional questions or concerns. EL MORTISER OPERATOR 12/25/2019 [facility], Discharge Summaries No Data Provided for This Section History and Physicals No Data Provided for This Section Vital Signs Vital Sign Value Date Comments Source Body temperature 36.39 Sheila 04/19/2020 [facility], Body height 171.5 cm 04/14/2020 [facility], Body weight 97.523 kg 04/14/2020 [facility], BMI 33.18 kg/m2 04/14/2020 [facility], Body weight 97.523 kg 03/17/2020 [facility], BMI 33.22 kg/m2 03/17/2020 [facility], Systolic blood pressure 138 mm [Hg] 12/15/2019 [facility], Diastolic blood pressure 84 mm [Hg] 12/15/2019 [facility], Heart rate 113 /min 12/15/2019 [facility], Respiratory rate 16 /min 12/15/2019 [facility], Oxygen saturation in Arterial blood by Pulse oximetry 98 % 12/15/2019 [facility] , Encounters Location Location Details Encounter Type Encounter Number Reason For Visit Attending Provider ADM Date DC Date Status Source [facility] [place] [id number] A BRIANA RUSSELL 12/15/2019 12/16/2019 Active [facility], [facility] SPEC IMEN [id number] A BRIANA RUSSELL 12/21/2019 12/22/2019 Active [facility], [facility] Telephone [id number] Catalina Russell MD 12/25/2019 [facility], [facility] Telephone [id number] Stephanie Leonardo RN 02/09/2020 [facility], [facility] Telephone [id number] Niharika Patrick TRUCK MECHANIC APPRENTICE 02/24/2020 [facility], [facility] Documentation [id number] Niharika Patrick TRUCK MECHANIC APPRENTICE 03/09/2020 [facility], [facility] Documentation [id number] Niharika Patrick TRUCK MECHANIC APPRENTICE 03/17/2020 [facility], Travel [id number] 03/17/2020 [facility] , [facility]2 CA SER IES [id number] [place] PATRICK 03/17/2020 03/17/2020 Active [facility], [facility] Office Visit Telehealth [id number] Niharika Patrick TRUCK MECHANIC APPRENTICE 03/17/2020 03/17/2020 [facility] , Travel [id number] 04/19/2020 [facility] , [facility] Hospital Encounter [id number] Niharika Patrick TRUCK MECHANIC APPRENTICE 04/19/2020 04/19/2020 [facility] , [facility] Hospital Encounter [id number] Niharika Patrick TRUCK MECHANIC APPRENTICE 04/19/2020 04/19/2020 [facility] , [facility] [place] [id number] L HANK CELINA 04/19/2020 04/20/2020 Active [facility], [facility] Hospital Encounter [id number] Niharika Patrick TRUCK MECHANIC APPRENTICE 04/19/2020 04/20/2020 [facility] , O Active [facility], Procedures Procedure Code Date Perfomer Comments Source MRI BREAST WOW CONT LMTD SCREEN RANJEET [id number] [facility] , HC COMPREHENSIVE METABOLIC PANEL [id number] [facility] 25-OH VITAMIN D [id number] [facility] BONE DENSITY SPINE/HIP [id number] 04/19/2020 [facility] , Plan of Care Plan of Care Date Source Scheduled ReferralsNameTypePriorityAssoc iated DiagnosesOrder ScheduleAMB REFERRAL TO BREAST CANCER PREVENTION CLINICOutpatient ReferralRoutineAtypical ductal hyperplasia of right breastOrdered: 12/25/2019documented as of this encounter 06/23/2020 [facility], Scheduled OrdersNameTypePriorityAssociat ed DiagnosesOrder ScheduleMAMMO SCREEN BILAT/REGINA/CADImagingSTATBreast cancer screening, high risk patientAt high risk for breast cancerExpected: 09/26/2020 (Approximate), Expires: 2documented as of this encounter 06/23/2020 [facility] , Health MaintenanceDue DateLast DoneComme ntsHIV KLSYUNYGT69/20/1976DTAP/TDAP VACCINES (1 - Tdap)1979HEPATITIS C PKCDYQXGL08/20/1979PHYSICAL (COMPREHENSIVE) EXAM1979CERVICAL CANCER BPNXAVHKK19/20/1982BREAST CANCER GADNVOIPM15/20/2001COLORECTAL CANCER ULVCLHAME51/20/2011SHINGLES RECOMBINANT VACCINE (1 of 2)2011INFLUENZA BVKUEZK39/06/23/2020 [facility], Social History No Data Provided for This Section Assessment and Plan No Data Provided for This Section Family History Value Date S ource Medical HistoryRelationNameCommentsNone ReportedBrotherJimCar accidentNone ReportedDaughterJessicaDiabetesFatherLarryHeart DiseaseFatherLarryNone ReportedMaternal GrandfatherStrokeMaternal GrandmotherDiabetesMotherArleneHeart DiseaseMotherArleneHigh CholesterolMotherArleneHypertensionMotherArleneCancer- ColonPaternal GrandfatherDonHeart DiseasePaternal GrandfatherDonAbd lump/mass/swellingPaternal GrandmotherVerdaCancerPaternal GrandmotherVerdaUnknown primaryCancer-ProstatePaternal UncleDeanHeart DiseasePaternal UncleDeanDiabetesSisterRhondaNone ReportedSonChrisEngaged; to be fallela ionNameStatusCommentsBrotherJimAliveBrotherMikeAliveDaughterJessicaAliveFatherLa rryDeceased (Age 86)GrandchildAidanAliveMaternal GrandfatherDeceasedMaternal GrandmotherDeceasedMotherArleneDeceased (Age 83)Paternal GrandfatherDonDeceased (Age 55)Paternal GrandmotherVerdaDeceased (Age 74)Paternal UncleDeanDeceased (Age 75)SisterRhondaAliveSonChrisAlive 06/23/2020 [facility] , Advance Directives Order Name Results Value Date Source Advance Directives Advance Dir ectives Documents on FileTypeDate RecordedPatien t RepresentativeExplanationAdvance Directive/DPOA 06/23/2020 [facility], Functional Status No Data Provided for This Section
--- OUTSIDE RECORDS SUMMARY | 2020-06-23 08:09 | XMS REPORT | Clinical Summary ---
Author Author User, Nia Cage Organization [facility] Physician Kumarian sarah Address Unknown Phone Unavailable [...] affected area daily prn ESTROGENS, CONJUGATED VAGINAL 84533694611 Active Angela Montoya er POTASSIUM CHLORIDE ER 10 MEQ CR-CAPS 1 PO DAILY POTASSIUM CHLORIDE 18094724087 Active Marta Dimas SYNTHROID 150 MCG TABS 1 PO daily along with 12.5 mcg dosing 12/08 LEVOTHYROXINE SODIUM 57145311231 Active Marta Dimas SYNTHROID 0.025 MG TAB 1/2 PO daily with 150 mcg dosing LEVOTHYROXINE SODIUM 09983258600 Active Marta Dimas SYNTHROID 137 MCG TABS 1 PO every other day alternating with 150 mcg LEVOTHYROXINE SODIUM 17626956556 No Longer Active Angela Sheehan ESTRACE 1 MG TABS I po daily ESTRADIOL 32526751336 Activ e Marta Dimas FEOSOL 200 (65 FE) MG TABS 1 PO daily with breakfast 2 FERROUS SULFATE DRIED 10668325181 No Longer Active Angela Sheehan VITAMIN D 1000 UNIT TABS 1 PO Daily CHOLECALCIFER OL 62934225391 Active Angela Sheehan AUGMENTIN 875-125 MG TAB 1 PO BID SLOANE XICILLIN-POT CLAVULANATE 29147314478 No Longer Active Angela AQUINO'S NASAL SPRAY (DEXAMETHASONE, GENTAMICIN, SA LINE) 2 puffs each nostril TID for [address] AQUINO'S NASAL SP RAY (DEXAMETHASONE, GENTAMICIN, SALINE) No Longer Active Angela Sheehan PHENTERMINE HCL 37.5 MG CAPS 1 PO Daily PHENTER MINE HCL 38289116843 No Longer Active Angela Sheehan LOTENSIN 10 MG TAB 1 PO daily BENAZEPRIL HCL 20839748 003 Active Marta Dimas BENICAR 20 MG TABS 1/2 PO daily OLMESARTAN MEDO XOMIL 72835059032 No Longer Active Angela Sheehan LASIX 20 MG TAB 1 PO QD (on hold) FUROSEMIDE 000 00269645 No Longer Active Angela Sheehan PLENDIL 5 MG TB24 1 PO daily FELODIPINE 329287731 00 No Longer Active Angela Sheehan ALDACTONE 50 MG TABS 1 PO daily for HTN SPIRONOLA CTONE 95545030797 Active Marta AQUINO'Alexander NASAL SPRAY 2 sprays each nostril TID x 7 days 01/27 DR. ADAIR NASAL SPRAY No Longer Active Marta Dimas AUGMENTIN 500-125 MG TABS 1 po BID x 7 days AMOXICILLIN- POT CLAVULANATE 83404538187 No Longer Active Marta Dimas ZITHROMAX Z-YU 250 MG TABS 2 po the first day, then 1 po x 4 da ys AZITHROMYCIN 38075487445 No Longer Active Marta Dimas POTASSIUM CHLORIDE CR 10 MEQ TBCR 1 po daily POTASSIUM CHLORIDE 45773818315 No Longer Active Angela Sheehan TOPROL XL 25 MG TB24 1 PO daily METOPROLOL SUCC INATE 10163587209 No Longer Active Angela Sheehan TAPAZOLE 10 MG TABS 6 pills PO daily METHIMAZOL E 76814795716 No Longer Active Angela ADAIR MAGIC NASAL SPRAY 2 PUFFS EACH NOSTRIL TID DR ADAIR MAGIC NASAL SPRAY No Longer Active Angela Sheehan AMOXICILLIN 500 MG CAP 1 PO TID AMOXICILLIN 633 50342587 No Longer Active Angela Sheehan DYAZIDE 37.5-25 MG CAPS 1 po daily TRIAMTERENE-HC TZ 94574354122 Active Marta Dimas STOOL SOFTENER 100 MG CAPS 2 tabs daily DOCUSATE SODIUM 61113590233 Active Angela Sheehan Immunizations Vaccine Administration Date [...] min/1.73m2 Encounters Code Encounter Date Provider Facility CPT-16009 Ofc Vst, Est Level IV 13:36:26 CDT Angela Sheehan DO, FACP CPT-08620 Ofc Vst, Est Level IV 20:09:34 MANAGER VALUATION Angela Sherry Gomezi Alexander Sheehan, DO, FACP CPT-72800 Ofc Vst, Est Level III 16:58:51 CDT Angela S qasim Gomezi S Sheehan, DO, FACP CPT-64236 Ofc Vst, Est Level IV 16:32:55 CDT Angela Sherry Munoz Sheehan, DO, FACP CPT-89804 Ofc Vst, Est Level IV 16:18:42 MANAGER VALUATION Angela Sherry Gomezi S Sheehan, DO, FACP CPT-86951 Ofc Vst, Est Level IV 16:22:46 CDT Angela Sherry Gomezi S Sheehan, DO, FACP CPT-79895 Ofc Vst, Est Level IV 16:33:52 CDT Angela Sherry Gomezi Alexander Sheehan, DO, FACP CPT-68075 Ofc Vst, Est Level IV 15:57:21 MANAGER VALUATION Angela Sherry Gomezi S Sheehan, DO, FACP CPT-86106 Ofc Vst, Est Level IV 16:03:21 CDT Angela Sherry Gomezi Alexander Sheehan, DO, FACP CPT-58789 Ofc Vst, Est Level IV 16:28:10 CDT Angela Sherry Gomezi Alexander Sheehan, DO, FACP CPT-95090 Ofc Vst, Est Level IV 15:33:01 MANAGER VALUATION Angela Sherry Gomezi Alexander Sheehan, DO, FACP CPT-76438 Ofc Vst, Est Level IV 16:37:11 CDT Angela Sherry Gomezi S Sheehan, DO, FACP CPT-11808 Ofc Vst, Est Level III 10:40:43 CDT Angela S qasim Gomezi Alexander Sheehan, DO, FACP CPT-85617 Ofc Vst, Est Level IV 15:31:08 CDT Angela Sherry Gomezi Alexander Sheehan, DO, FACP CPT-15539 Ofc Vst, Est Level IV 14:06:55 MANAGER VALUATION Angela Sherry Munoz Sheehan, DO, FACP CPT-62228 Ofc Vst, Est Level IV 11:35:17 MANAGER VALUATION Angela Sherry Munoz Sheehan, DO, FACP CPT-39648 Ofc Vst, Est Level III 17:12:08 CDT Angela S qasim Gomezi Alexander Sheehan, DO, FACP CPT-21003 Ofc Vst, Est Level IV 14:39:07 CDT Angela Sherry Gomezi Alexander Sheehan, DO, FACP CPT-10516 Ofc Vst, Est Level III 16:48:54 CDT Angela S qasmi Munoz Sheehan, DO, FACP CPT-61153 Ofc Vst, Est Level IV 17:24:56 CDT Angela Sherry Gomezi Alexander Sheehan, DO, FACP CPT-01295 Ofc Vst, Est Level III 15:01:47 CDT Angela S qasim Gomezi Alexander Sheehan, DO, FACP CPT-77802 Ofc Vst, Est Level IV 11:46:33 CDT Angela Sherry Munoz Sissy, DO, FACP CPT-37411 Ofc Vst, Est Level V 16:42:52 CDT Angela Aisha Sheehan Angela Alexander Sheehan, DO, FACP CPT-67827 Ofc Vst, Est Level IV 09:33:53 CDT Angela Sherry Munoz Sheehan, DO, FACP CPT-60330 Ofc Vst, Est Level IV 15:34:29 CDT Angela Sherry Munoz Sissy, DO, FACP CPT-51499 Ofc Vst, Est Level IV 16:30:35 CDT Angela Sherry Sheehan, DO, FACP CPT-53456 Ofc Vst, Est Level IV 09:45:42 CDT Angela Powell lisa Sheehan [facility] CPT-24583 Ofc Vst, Est Level IV 17:17:04 CDT Angela Sherry Sheehan [facility] CPT-58898 Ofc Vst, Est Level III 11:25:55 MANAGER VALUATION Angela S uanuradhanne Sissy [facility] [place] CPT-66014 Ofc Vst, Est Level III 16:38:15 MANAGER VALUATION Angela S uanuradhanne Sissy [facility] [place] CPT-29830 Ofc Vst, Est Level III 10:30:19 MANAGER VALUATION Angela S uzanne Sissy [facility] [place] CPT-94384 Ofc Vst, Est Level III 15:49:08 MANAGER VALUATION Angela S uanuradhanne Sissy [facility] [place] CPT-62185 Ofc Vst, Est Level III 17:33:10 CDT Angela S uzanne Sissy [facility] [place] CPT-73936 Ofc Vst, Est Level III 16:04:47 CDT Angela S uzanne Sissy [facility] [place] CPT-41719 Ofc Vst, Est Level III 11:21:24 CDT Angela S uzanne Sissy [facility] [place] CPT-13533 Ofc Vst, Est Level III 15:56:17 CDT Angela S uzanne Sissy [facility] [place] CPT-73544 Ofc Vst, Est Level III 10:48:16 CDT Angela S uzanne Sheehan [facility] [place] CPT-74729 Ofc Vst, Est Level III 19:48:03 CDT Angela S uzanne Sissy [facility] [place] CPT-45467 Ofc Vst, New Level III 10:28:40 CDT Angela S ugrege Sissy [facility] [place] Procedures Code Procedure Name Date Entry Date Standard Desc ription CPT-31271 Preventive, Est, (40-64) 20:42:16 CDT 02/03 CPT-05390 Preventive, Est, (40-64) 14:13:37 CDT 04/01 CPT-88028 Preventive, Est, (40-64) 16:58:36 MANAGER VALUATION 10/13 CPT-13013 Preventive, Est, (40-64) 15:32:47 MANAGER VALUATION 11/04 CPT-15052 Handling of specimen from office to lab 15:32:47 MANAGER VALUATION CPT-32619 EKG w/ Interpretation 16:42:52 CDT CPT-35999 Preventive, Est, (40-64) 12:49:32 MANAGER VALUATION 02/06
--- OUTSIDE RECORDS SUMMARY | 2020-06-23 08:09 | XMS REPORT | Clinical Summary ---
Author Author User, Nia Cage Organization [facility] Physician Allian e Address Unknown Phone Unavailable [...] Sheehan Routine general medical examination at a [facility] care facility SINUSITIS, ACUTE 461.9 [...] Supraventricular premature beats HYPOMAGNESEMIA 275.2 Resolved Angela weiss Disorders of magnesium metabolism HYPOTHYROIDISM 244.9 Resolved [...] Generic Name NDC Status Provider Patient Instruction POTASSIUM CHLORIDE ER 10 MEQ CR-TABS 1 PO DAILY POTASSIUM CHLORIDE 26714638442 Active Marta Dimas PREMARIN 0.625 MG/GM CREA Apply to affected area daily prn ESTROGENS, CONJUGATED VAGINAL 54850547525 Active Angela Montoya er SYNTHROID 150 MCG TABS 1 PO daily along with 12.5 mcg dosing 12/08 LEVOTHYROXINE SODIUM 29658189572 Active Marta Dimas SYNTHROID 0.025 MG TAB 1/2 PO daily with 150 mcg dosing LEVOTHYROXINE SODIUM 39802357799 Active Marta Dimas SYNTHROID 137 MCG TABS 1 PO every other day alternating with 150 mcg LEVOTHYROXINE SODIUM 96041414454 No Longer Active Angela Sheehan ESTRACE 1 MG TABS I po daily ESTRADIOL 75688971014 Activ e Marta Dimas FEOSOL 200 (65 FE) MG TABS 1 PO daily with breakfast 2 FERROUS SULFATE DRIED 74035768061 No Longer Active Angela Sheehan VITAMIN D 1000 UNIT TABS 1 PO Daily CHOLECALCIFER OL 62704324482 Active Angela Sheehan AUGMENTIN 875-125 MG TAB 1 PO BID SLOANE XICILLIN-POT CLAVULANATE 63704366023 No Longer Active Angela AQUINO'S NASAL SPRAY (DEXAMETHASONE, GENTAMICIN, SA LINE) 2 puffs each nostril TID for [address] ADAIR NASAL SP RAY (DEXAMETHASONE, GENTAMICIN, SALINE) No Longer Active Angela Sheehan PHENTERMINE HCL 37.5 MG CAPS 1 PO Daily PHENTER MINE HCL 52778936066 No Longer Active Angela Sheehan LOTENSIN 10 MG TAB 1 PO daily BENAZEPRIL HCL 17636603 003 Active Marta Dimas BENICAR 20 MG TABS 1/2 PO daily OLMESARTAN MEDO XOMIL 71578210063 No Longer Active Angela Sheehan LASIX 20 MG TAB 1 PO QD (on hold) FUROSEMIDE 000 17530487 No Longer Active Angela Sheehan PLENDIL 5 MG TB24 1 PO daily FELODIPINE 799148470 00 No Longer Active Angelaedgar Sheehan ALDACTONE 50 MG TABS 1 PO daily for HTN SPIRONOLA CTONE 68453455916 Active Marta AQUINO'Alexander NASAL SPRAY 2 sprays each nostril TID x 7 days 01/27 DR. ADAIR NASAL SPRAY No Longer Active Marta Dimas AUGMENTIN 500-125 MG TABS 1 po BID x 7 days AMOXICILLIN- POT CLAVULANATE 14063728541 No Longer Active Marta Dimas ZITHROMAX Z-YU 250 MG TABS 2 po the first day, then 1 po x 4 da ys AZITHROMYCIN 56032858599 No Longer Active Marta Dimas POTASSIUM CHLORIDE CR 10 MEQ TBCR 1 po daily POTASSIUM CHLORIDE 28640657896 No Longer Active Angela Sheehan TOPROL XL 25 MG TB24 1 PO daily METOPROLOL SUCC INATE 55487988545 No Longer Active Angela Sheehan TAPAZOLE 10 MG TABS 6 pills PO daily METHIMAZOL E 17994550409 No Longer Active Angela ADAIR MAGIC NASAL SPRAY 2 PUFFS EACH NOSTRIL TID DR ADAIR MAGIC NASAL SPRAY No Longer Active Angela Sheehan AMOXICILLIN 500 MG CAP 1 PO TID AMOXICILLIN 633 47588312 No Longer Active Angela Sheehan DYAZIDE 37.5-25 MG CAPS 1 po daily TRIAMTERENE-HC TZ 57233119712 Active Marta Dimas STOOL SOFTENER 100 MG CAPS 2 tabs daily DOCUSATE SODIUM 21307603157 Active Angela Sheehan Immunizations Vaccine Administration Date [...] mg/dL Encounters Code Encounter Date Provider Facility CPT-91022 Ofc Vst, Est Level IV 13:36:26 CDT Angela Sheehan DO, FACP CPT-20299 Ofc Vst, Est Level IV 20:09:34 PATTERN DEVELOPER Angela Sheehan DO, FACP CPT-03756 Ofc Vst, Est Level III 16:58:51 CDT Angela Sheehan DO, FACP CPT-27763 Ofc Vst, Est Level IV 16:32:55 CDT Angela Sheehan DO, FACP CPT-07439 Ofc Vst, Est Level IV 16:18:42 PATTERN DEVELOPER Angela Sherry Munoz Sheehan, DO, FACP CPT-29046 Ofc Vst, Est Level IV 16:22:46 CDT Angela Sherry Munoz Sheehan, DO, FACP CPT-33904 Ofc Vst, Est Level IV 16:33:52 CDT Angela Sherry Munoz Sheehan, DO, FACP CPT-35501 Ofc Vst, Est Level IV 15:57:21 PATTERN DEVELOPER Angela Sherry Munoz Sheehan, DO, FACP CPT-74449 Ofc Vst, Est Level IV 16:03:21 CDT Angela Sherry Munoz Sheehan, DO, FACP CPT-39720 Ofc Vst, Est Level IV 16:28:10 CDT Angela Sherry Munoz Sheehan, DO, FACP CPT-05105 Ofc Vst, Est Level IV 15:33:01 PATTERN DEVELOPER Angela Sherry Munoz Sheehan, DO, FACP CPT-30211 Ofc Vst, Est Level IV 16:37:11 CDT Angela Sherry Munoz Sheehan, DO, FACP CPT-20574 Ofc Vst, Est Level III 10:40:43 CDT Angela S qasim Miller S Sheehan, DO, FACP CPT-10635 Ofc Vst, Est Level IV 15:31:08 CDT Angela Sherry Munoz Sheehan, DO, FACP CPT-47886 Ofc Vst, Est Level IV 14:06:55 PATTERN DEVELOPER Angela Munoz Sheehan, DO, FACP CPT-47257 Ofc Vst, Est Level IV 11:35:17 PATTERN DEVELOPER Angela Sherry Munoz Sheehan, DO, FACP CPT-00418 Ofc Vst, Est Level III 17:12:08 CDT Angela S qasim Gomezi Alexander Sissy, DO, FACP CPT-44333 Ofc Vst, Est Level IV 14:39:07 CDT Angela Sherry Munoz Sissy, DO, FACP CPT-96852 Ofc Vst, Est Level III 16:48:54 CDT Angela S qasim Munoz Sissy, DO, FACP CPT-99524 Ofc Vst, Est Level IV 17:24:56 CDT Angela Sherry Harrisonner Angela Alexander Sissy, DO, FACP CPT-83305 Ofc Vst, Est Level III 15:01:47 CDT Angela S qasim Harrisonner Angela Munoz Sissy, DO, FACP CPT-86616 Ofc Vst, Est Level IV 11:46:33 CDT Angela Sherry Harrisonner Angela Munoz Sissy, DO, FACP CPT-50841 Ofc Vst, Est Level V 16:42:52 CDT Angela Aisha Gomezi Alexander Sissy, DO, FACP CPT-73485 Ofc Vst, Est Level IV 09:33:53 CDT Angela Sherry gonzalez Sissy Angela Munoz Sissy, DO, FACP CPT-24898 Ofc Vst, Est Level IV 15:34:29 CDT Angela Sherry gonzalez Sissy Angela Munoz Sissy, DO, FACP CPT-58950 Ofc Vst, Est Level IV 16:30:35 CDT Angela Sherry gonzalez Sissy Angela Alexander Sissy, DO, FACP CPT-51467 Ofc Vst, Est Level IV 09:45:42 CDT Angela Sherry lisa Sheehan [facility] [place] CPT-20752 Ofc Vst, Est Level IV 17:17:04 CDT Angela Sherry lisa Sheehan [facility] [place] CPT-75636 Ofc Vst, Est Level III 11:25:55 PATTERN DEVELOPER Angela S uzanne Sheehan [facility] [place] CPT-90513 Ofc Vst, Est Level III 16:38:15 PATTERN DEVELOPER Angela S uzanne Sheehan [facility] [place] CPT-29763 Ofc Vst, Est Level III 10:30:19 PATTERN DEVELOPER Angela S uzanne Sheehan [facility] [place] CPT-70770 Ofc Vst, Est Level III 15:49:08 PATTERN DEVELOPER Angela S uzanne Sheehan [facility] [place] CPT-29000 Ofc Vst, Est Level III 17:33:10 CDT Angela S uzanne Sheehan [facility] [place] CPT-22339 Ofc Vst, Est Level III 16:04:47 CDT Angela S uzanne Sheehan [facility] [place] CPT-01378 Ofc Vst, Est Level III 11:21:24 CDT Angela S uzanne Sheehan [facility] [place] CPT-55808 Ofc Vst, Est Level III 15:56:17 CDT Angela S uzanne Sheehan [facility] [place] CPT-25066 Ofc Vst, Est Level III 10:48:16 CDT Angela S uzanne Sheehan [facility] [place] CPT-81118 Ofc Vst, Est Level III 19:48:03 CDT Angela S uzanne Sheehan [facility] [place] CPT-35327 Ofc Vst, New Level III 10:28:40 CDT Angela S uzanne Sheehan [facility] [place] Procedures Code Procedure Name Date Entry Date Standard Desc ription CPT-39479 Preventive, Est, (40-64) 20:42:16 CDT 02/03 CPT-81044 Preventive, Est, (40-64) 14:13:37 CDT 04/01 CPT-78604 Preventive, Est, (40-64) 16:58:36 PATTERN DEVELOPER 10/13 CPT-30344 Preventive, Est, (40-64) 15:32:47 PATTERN DEVELOPER 11/04 CPT-18621 Handling of specimen from office to lab 15:32:47 PATTERN DEVELOPER CPT-88372 EKG w/ Interpretation 16:42:52 CDT CPT-31811 Preventive, Est, (40-64) 12:49:32 PATTERN DEVELOPER 02/06
--- OUTSIDE RECORDS SUMMARY | 2020-06-23 08:09 | XMS REPORT | Clinical Summary ---
Author Author User, Nia Cage Organization [facility] Address Unknown Phone Unavailable [...] Sheehan Routine general medical examination at a [facility] care facility SINUSITIS, ACUTE 461.9 Resolved [...] affected area daily prn ESTROGENS, CONJUGATED VAGINAL 92111457251 Active Angela Montoya er POTASSIUM CHLORIDE ER 10 MEQ CR-CAPS 1 PO DAILY POTASSIUM CHLORIDE 50855070527 Active Marta Dimas SYNTHROID 150 MCG TABS 1 PO daily along with 12.5 mcg dosing 12/08 LEVOTHYROXINE SODIUM 10429073891 Active Marta Dimas SYNTHROID 0.025 MG TAB 1/2 PO daily with 150 mcg dosing LEVOTHYROXINE SODIUM 73991350758 Active Marta Dimas SYNTHROID 137 MCG TABS 1 PO every other day alternating with 150 mcg LEVOTHYROXINE SODIUM 60837589319 No Longer Active Angelaedgar Sheehan ESTRACE 1 MG TABS I po daily ESTRADIOL 60945180251 Activ e Marta Dimas FEOSOL 200 (65 FE) MG TABS 1 PO daily with breakfast 2 FERROUS SULFATE DRIED 12747866024 No Longer Active Angela Sheehan VITAMIN D 1000 UNIT TABS 1 PO Daily CHOLECALCIFER OL 89452236610 Active Angela Sheehan AUGMENTIN 875-125 MG TAB 1 PO BID SLOANE XICILLIN-POT CLAVULANATE 37541868029 No Longer Active Angela AQUINO'S NASAL SPRAY (DEXAMETHASONE, GENTAMICIN, SA LINE) 2 puffs each nostril TID for [address] ADAIR NASAL SP RAY (DEXAMETHASONE, GENTAMICIN, SALINE) No Longer Active Angela Sheehan PHENTERMINE HCL 37.5 MG CAPS 1 PO Daily PHENTER MINE HCL 90906144704 No Longer Active Angela Sheehan LOTENSIN 10 MG TAB 1 PO daily BENAZEPRIL HCL 56324334 003 Active Marta Dimas BENICAR 20 MG TABS 1/2 PO daily OLMESARTAN MEDO XOMIL 72630937600 No Longer Active Angela Sheehan LASIX 20 MG TAB 1 PO QD (on hold) FUROSEMIDE 000 87033702 No Longer Active Angela Sheehan PLENDIL 5 MG TB24 1 PO daily FELODIPINE 880241761 00 No Longer Active Angelaedgar Sheehan ALDACTONE 50 MG TABS 1 PO daily for HTN SPIRONOLA CTONE 49788246373 Active Marta AQUINO'Alexander NASAL SPRAY 2 sprays each nostril TID x 7 days 01/27 DR. ADAIR NASAL SPRAY No Longer Active Marta Dimas AUGMENTIN 500-125 MG TABS 1 po BID x 7 days AMOXICILLIN- POT CLAVULANATE 58247068801 No Longer Active Marta Dimas ZITHROMAX Z-YU 250 MG TABS 2 po the first day, then 1 po x 4 da ys AZITHROMYCIN 24694413065 No Longer Active Marta Dimas POTASSIUM CHLORIDE CR 10 MEQ TBCR 1 po daily POTASSIUM CHLORIDE 11308278549 No Longer Active Angela Sheehan TOPROL XL 25 MG TB24 1 PO daily METOPROLOL SUCC INATE 00106980206 No Longer Active Angela Sheehan TAPAZOLE 10 MG TABS 6 pills PO daily METHIMAZOL E 97152751993 No Longer Active Angela ADAIR MAGIC NASAL SPRAY 2 PUFFS EACH NOSTRIL TID DR ADAIR MAGIC NASAL SPRAY No Longer Active Angela Sheehan AMOXICILLIN 500 MG CAP 1 PO TID AMOXICILLIN 633 27097133 No Longer Active Angela Sheehan DYAZIDE 37.5-25 MG CAPS 1 po daily TRIAMTERENE-HC TZ 33160229552 Active Marta Dimas STOOL SOFTENER 100 MG CAPS 2 tabs daily DOCUSATE SODIUM 56115930332 Active Angela Sheehan Immunizations Vaccine Administration Date [...] min/1.73m2 Encounters Code Encounter Date Provider Facility CPT-11328 Ofc Vst, Est Level IV 13:36:26 CDT Angela Sheehan DO, FACP CPT-66597 Ofc Vst, Est Level IV 20:09:34 TELETYPESETTER OPERATOR Angela Sheehan DO, FACP CPT-41169 Ofc Vst, Est Level III 16:58:51 CDT Angela Sheehan DO, FACP CPT-59305 Ofc Vst, Est Level IV 16:32:55 CDT Angela Sheehan DO, FACP CPT-92192 Ofc Vst, Est Level IV 16:18:42 TELETYPESETTER OPERATOR Angela Sherry Munoz Sheehan, DO, FACP CPT-50743 Ofc Vst, Est Level IV 16:22:46 CDT Angela Sherry Munoz Sheehan, DO, FACP CPT-21705 Ofc Vst, Est Level IV 16:33:52 CDT Angela Sherry Munoz Sheehan, DO, FACP CPT-81982 Ofc Vst, Est Level IV 15:57:21 TELETYPESETTER OPERATOR Angela Sherry Munoz Sheehan, DO, FACP CPT-25558 Ofc Vst, Est Level IV 16:03:21 CDT Angela Sherry Munoz Sheehan, DO, FACP CPT-36429 Ofc Vst, Est Level IV 16:28:10 CDT Angela Sherry Munoz Sheehan, DO, FACP CPT-00788 Ofc Vst, Est Level IV 15:33:01 TELETYPESETTER OPERATOR Angela Sherry Munoz Sheehan, DO, FACP CPT-35095 Ofc Vst, Est Level IV 16:37:11 CDT Angela Sherry Munoz Sheehan, DO, FACP CPT-96249 Ofc Vst, Est Level III 10:40:43 CDT Angela S qasim Miller S Sheehan, DO, FACP CPT-16487 Ofc Vst, Est Level IV 15:31:08 CDT Angela Sherry Munoz Sheehan, DO, FACP CPT-98850 Ofc Vst, Est Level IV 14:06:55 TELETYPESETTER OPERATOR Angela Munoz Sheehan, DO, FACP CPT-17787 Ofc Vst, Est Level IV 11:35:17 TELETYPESETTER OPERATOR Angela Sherry Munoz Sheehan, DO, FACP CPT-19371 Ofc Vst, Est Level III 17:12:08 CDT Angela S qasim Gomezi Alexander Sissy, DO, FACP CPT-50601 Ofc Vst, Est Level IV 14:39:07 CDT Angela Sherry Munoz Sissy, DO, FACP CPT-00012 Ofc Vst, Est Level III 16:48:54 CDT Angela S qasim Munoz Sissy, DO, FACP CPT-45233 Ofc Vst, Est Level IV 17:24:56 CDT Angela Sherry Harrisonner Angela Alexander Sissy, DO, FACP CPT-49132 Ofc Vst, Est Level III 15:01:47 CDT Angela S qasim Harrisonner Angela Munoz Sissy, DO, FACP CPT-13535 Ofc Vst, Est Level IV 11:46:33 CDT Angela Sherry Harrisonner Angela Munoz Sissy, DO, FACP CPT-63875 Ofc Vst, Est Level V 16:42:52 CDT Anegla Aisha Gomezi Alexander Sissy, DO, FACP CPT-54553 Ofc Vst, Est Level IV 09:33:53 CDT Angela Sherry gonzalez Sissy Angela Munoz Sissy, DO, FACP CPT-36847 Ofc Vst, Est Level IV 15:34:29 CDT Angela Sherry gonzalez Sissy Angela Munoz Sissy, DO, FACP CPT-78356 Ofc Vst, Est Level IV 16:30:35 CDT Angela Sherry gonzalez Sissy Angela Alexander Sissy, DO, FACP CPT-33396 Ofc Vst, Est Level IV 09:45:42 CDT Angela Sherry lisa Sheehan [facility] [place] CPT-17961 Ofc Vst, Est Level IV 17:17:04 CDT Angela Sherry lisa Sheehan [facility] [place] CPT-69005 Ofc Vst, Est Level III 11:25:55 TELETYPESETTER OPERATOR Angela S uzanne Sheehan [facility] [place] CPT-24612 Ofc Vst, Est Level III 16:38:15 TELETYPESETTER OPERATOR Angela S uzanne Sheehan [facility] [place] CPT-62884 Ofc Vst, Est Level III 10:30:19 TELETYPESETTER OPERATOR Angela S uzanne Sheehan [facility] [place] CPT-86984 Ofc Vst, Est Level III 15:49:08 TELETYPESETTER OPERATOR Angela S uzanne Sheehan [facility] [place] CPT-31512 Ofc Vst, Est Level III 17:33:10 CDT Angela S uzanne Sheehan [facility] [place] CPT-36329 Ofc Vst, Est Level III 16:04:47 CDT Angela S uzanne Sheehan [facility] [place] CPT-15696 Ofc Vst, Est Level III 11:21:24 CDT Angela S uzanne Sheehan [facility] [place] CPT-69355 Ofc Vst, Est Level III 15:56:17 CDT Angela S uzanne Sheehan [facility] [place] CPT-70561 Ofc Vst, Est Level III 10:48:16 CDT Angela S uzanne Sheehan [facility] [place] CPT-80725 Ofc Vst, Est Level III 19:48:03 CDT Angela S uzanne Sheehan [facility] [place] CPT-94103 Ofc Vst, New Level III 10:28:40 CDT Angela S uzanne Sheehan [facility] [place] Procedures Code Procedure Name Date Entry Date Standard Desc ription CPT-30417 Preventive, Est, (40-64) 20:42:16 CDT 02/03 CPT-09467 Preventive, Est, (40-64) 14:13:37 CDT 04/01 CPT-66718 Preventive, Est, (40-64) 16:58:36 TELETYPESETTER OPERATOR 10/13 CPT-51480 Preventive, Est, (40-64) 15:32:47 TELETYPESETTER OPERATOR 11/04 CPT-62339 Handling of specimen from office to lab 15:32:47 TELETYPESETTER OPERATOR CPT-48624 EKG w/ Interpretation 16:42:52 CDT CPT-55240 Preventive, Est, (40-64) 12:49:32 TELETYPESETTER OPERATOR 02/06
--- OUTSIDE RECORDS SUMMARY | 2020-06-23 08:09 | XMS REPORT | Clinical Summary ---
Author Author User, Nia Cage Organization [facility] [place] Address Unknown Phone Unavailable [...] MEQ CR-TABS 1 PO DAILY POTASSIUM CHLORIDE 05590372541 Active Marta Dimas PREMARIN 0.625 MG/GM CREA Apply to affected area daily prn ESTROGENS, CONJUGATED VAGINAL 19918188525 Active Angela Montoya er SYNTHROID 150 MCG TABS 1 PO daily along with 12.5 mcg dosing 12/08 LEVOTHYROXINE SODIUM 08408299678 Active Marta Dimas SYNTHROID 0.025 MG TAB 1/2 PO daily with 150 mcg dosing LEVOTHYROXINE SODIUM 63529768638 Active Marta Dimas SYNTHROID 137 MCG TABS 1 PO every other day alternating with 150 mcg LEVOTHYROXINE SODIUM 19959679785 No Longer Active Angela Sheehan ESTRACE 1 MG TABS I po daily ESTRADIOL 20226807805 Activ e Marta Dimas FEOSOL 200 (65 FE) MG TABS 1 PO daily with breakfast 2 FERROUS SULFATE DRIED 72243906196 No Longer Active Angela Sheehan VITAMIN D 1000 UNIT TABS 1 PO Daily CHOLECALCIFER OL 28439788301 Active Angela Sheehan AUGMENTIN 875-125 MG TAB 1 PO BID SLOANE XICILLIN-POT CLAVULANATE 78792932677 No Longer Active Angela AQUINO'S NASAL SPRAY (DEXAMETHASONE, GENTAMICIN, SA LINE) 2 puffs each nostril TID for [address] AQUINO'S NASAL SP RAY (DEXAMETHASONE, GENTAMICIN, SALINE) No Longer Active Angela Sheehan PHENTERMINE HCL 37.5 MG CAPS 1 PO Daily PHENTER MINE HCL 14078247929 No Longer Active Angela Sheehan LOTENSIN 10 MG TAB 1 PO daily BENAZEPRIL HCL 46893550 003 Active Marta Dimas BENICAR 20 MG TABS 1/2 PO daily OLMESARTAN MEDO XOMIL 47989688890 No Longer Active Angela Sheehan LASIX 20 MG TAB 1 PO QD (on hold) FUROSEMIDE 000 22853650 No Longer Active Angela Sheehan PLENDIL 5 MG TB24 1 PO daily FELODIPINE 952730819 00 No Longer Active Angela Sheehan ALDACTONE 50 MG TABS 1 PO daily for HTN SPIRONOLA CTONE 05005111555 Active Marta AQUINO'Alexander NASAL SPRAY 2 sprays each nostril TID x 7 days 01/27 DR. ADAIR NASAL SPRAY No Longer Active Marta Dimas AUGMENTIN 500-125 MG TABS 1 po BID x 7 days AMOXICILLIN- POT CLAVULANATE 83560240516 No Longer Active Marta Dimas ZITHROMAX Z-YU 250 MG TABS 2 po the first day, then 1 po x 4 da ys AZITHROMYCIN 66552264503 No Longer Active Marta Dimas POTASSIUM CHLORIDE CR 10 MEQ TBCR 1 po daily POTASSIUM CHLORIDE 55248764735 No Longer Active Angela Sheehan TOPROL XL 25 MG TB24 1 PO daily METOPROLOL SUCC INATE 45304792608 No Longer Active Angela Sheehan TAPAZOLE 10 MG TABS 6 pills PO daily METHIMAZOL E 95512354392 No Longer Active Angela ADAIR MAGIC NASAL SPRAY 2 PUFFS EACH NOSTRIL TID DR ADAIR MAGIC NASAL SPRAY No Longer Active Angela Sheehan AMOXICILLIN 500 MG CAP 1 PO TID AMOXICILLIN 633 76113562 No Longer Active Angela Sheehan DYAZIDE 37.5-25 MG CAPS 1 po daily TRIAMTERENE-HC TZ 20865390743 Active Marta Dimas STOOL SOFTENER 100 MG CAPS 2 tabs daily DOCUSATE SODIUM 20808155837 Active Angela Sheehan Immunizations Vaccine Administration Date [...] mg/dL Encounters Code Encounter Date Provider Facility CPT-40439 Ofc Vst, Est Level IV 13:36:26 CDT Angela Sheehan DO, FACP CPT-19363 Ofc Vst, Est Level IV 20:09:34 PSYCH SALES SPECIALIST Angela Sheehan DO, FACP CPT-95521 Ofc Vst, Est Level III 16:58:51 CDT Angela Sheehan DO, FACP CPT-20492 Ofc Vst, Est Level IV 16:32:55 CDT Angela Sheehan DO, FACP CPT-26286 Ofc Vst, Est Level IV 16:18:42 PSYCH SALES SPECIALIST Angela Sherry Munoz Sheehan, DO, FACP CPT-50062 Ofc Vst, Est Level IV 16:22:46 CDT Angela Sherry Munoz Sheehan, DO, FACP CPT-05596 Ofc Vst, Est Level IV 16:33:52 CDT Angela Sherry Munoz Sheehan, DO, FACP CPT-52842 Ofc Vst, Est Level IV 15:57:21 PSYCH SALES SPECIALIST Angela Sherry Munoz Sheehan, DO, FACP CPT-08255 Ofc Vst, Est Level IV 16:03:21 CDT Angela Sherry Munoz Sheehan, DO, FACP CPT-64844 Ofc Vst, Est Level IV 16:28:10 CDT Angela Sherry Munoz Sheehan, DO, FACP CPT-83189 Ofc Vst, Est Level IV 15:33:01 PSYCH SALES SPECIALIST Angela Sherry Munoz Sheehan, DO, FACP CPT-57450 Ofc Vst, Est Level IV 16:37:11 CDT Angelaedgar Munoz Sheehan, DO, FACP CPT-98361 Ofc Vst, Est Level III 10:40:43 CDT Angela Alexander Munoz Sheehan, DO, FACP CPT-76524 Ofc Vst, Est Level IV 15:31:08 CDT Angela Sherry Munoz Sheehan, DO, FACP CPT-03376 Ofc Vst, Est Level IV 14:06:55 PSYCH SALES SPECIALIST Angela Munoz Sheehan, DO, FACP CPT-67145 Ofc Vst, Est Level IV 11:35:17 PSYCH SALES SPECIALIST Angela Sherry Munoz Sheehan, DO, FACP CPT-38939 Ofc Vst, Est Level III 17:12:08 CDT Angela S qasim Gomezi Alexander Sheehan, DO, FACP CPT-01689 Ofc Vst, Est Level IV 14:39:07 CDT Angela Sherry Munoz iSssy, DO, FACP CPT-00078 Ofc Vst, Est Level III 16:48:54 CDT Angela S qasim Munoz Sissy, DO, FACP CPT-01732 Ofc Vst, Est Level IV 17:24:56 CDT Angela Sherry Harrisonner Angela Alexander Sissy, DO, FACP CPT-08181 Ofc Vst, Est Level III 15:01:47 CDT Angela S qasim Munoz Sissy, DO, FACP CPT-58205 Ofc Vst, Est Level IV 11:46:33 CDT Angela Sherry Munoz Sissy, DO, FACP CPT-41234 Ofc Vst, Est Level V 16:42:52 CDT Angela Aisha Gomezi Alexander Sissy, DO, FACP CPT-03694 Ofc Vst, Est Level IV 09:33:53 CDT Agnela Sherry gonzalez Sheehan Angela Munoz Sissy, DO, FACP CPT-81374 Ofc Vst, Est Level IV 15:34:29 CDT Angela Sherry gonzalez Sissy Angela Munoz Sissy, DO, FACP CPT-49931 Ofc Vst, Est Level IV 16:30:35 CDT Angela Sherry gonzalez Sissy Angela Alexander Sissy, DO, FACP CPT-98260 Ofc Vst, Est Level IV 09:45:42 CDT Angela Sherry gonzalez Sissy [facility] [place] CPT-84799 Ofc Vst, Est Level IV 17:17:04 CDT Angela Sherry lisa Sheehan [facility] [place] CPT-92722 Ofc Vst, Est Level III 11:25:55 PSYCH SALES SPECIALIST Angela S uzanne Sheehan [facility] [place] CPT-43680 Ofc Vst, Est Level III 16:38:15 PSYCH SALES SPECIALIST Angela S uzanne Sheehan [facility] [place] CPT-10139 Ofc Vst, Est Level III 10:30:19 PSYCH SALES SPECIALIST Angela S uzanne Sheehan [facility] [place] CPT-93969 Ofc Vst, Est Level III 15:49:08 PSYCH SALES SPECIALIST Angela S uzanne Sheehan [facility] [place] CPT-76339 Ofc Vst, Est Level III 17:33:10 CDT Angela S uzanne Sheehan [facility] [place] CPT-36982 Ofc Vst, Est Level III 16:04:47 CDT Angela S uzanne Sheehan [facility] [place] CPT-43828 Ofc Vst, Est Level III 11:21:24 CDT Angela S uzanne Sheehan [facility] [place] CPT-01994 Ofc Vst, Est Level III 15:56:17 CDT Angela S uzanne Sheehan [facility] [place] CPT-86249 Ofc Vst, Est Level III 10:48:16 CDT Angela S uzanne Sheehan [facility] [place] CPT-53028 Ofc Vst, Est Level III 19:48:03 CDT Angela S uzanne Hseehan [facility] [place] CPT-60782 Ofc Vst, New Level III 10:28:40 CDT Angela S uzanne Sheehan [facility] [place] Procedures Code Procedure Name Date Entry Date Standard Desc ription CPT-23305 Preventive, Est, (40-64) 20:42:16 CDT 02/03 CPT-21686 Preventive, Est, (40-64) 14:13:37 CDT 04/01 CPT-82566 Preventive, Est, (40-64) 16:58:36 PSYCH SALES SPECIALIST 10/13 CPT-25700 Preventive, Est, (40-64) 15:32:47 PSYCH SALES SPECIALIST 11/04 CPT-99639 Handling of specimen from office to lab 15:32:47 PSYCH SALES SPECIALIST CPT-64775 EKG w/ Interpretation 16:42:52 CDT CPT-70401 Preventive, Est, (40-64) 12:49:32 PSYCH SALES SPECIALIST 02/06
--- OUTSIDE RECORDS SUMMARY | 2020-06-23 08:09 | XMS REPORT | Clinical Summary ---
Author Author User, Nia Cage Organization [facility] Address Unknown Phone Unavailable [...] Sheehan [facility] SINUSITIS, ACUTE 461.9 Resolved [...] MEQ CR-TABS 1 PO DAILY POTASSIUM CHLORIDE 92004648530 Active Marta Dimas PREMARIN 0.625 MG/GM CREA Apply to affected area daily prn ESTROGENS, CONJUGATED VAGINAL 32061016916 Active Angela Montoya er SYNTHROID 150 MCG TABS 1 PO daily along with 12.5 mcg dosing 12/08 LEVOTHYROXINE SODIUM 32042698748 Active Marta Dimas SYNTHROID 0.025 MG TAB 1/2 PO daily with 150 mcg dosing LEVOTHYROXINE SODIUM 94625975847 Active Marta Dimas SYNTHROID 137 MCG TABS 1 PO every other day alternating with 150 mcg LEVOTHYROXINE SODIUM 19724899116 No Longer Active Angela Sheehan ESTRACE 1 MG TABS I po daily ESTRADIOL 31978822043 Activ e Marta Dimas FEOSOL 200 (65 FE) MG TABS 1 PO daily with breakfast 2 FERROUS SULFATE DRIED 75422430086 No Longer Active Angela Sheehan VITAMIN D 1000 UNIT TABS 1 PO Daily CHOLECALCIFER OL 29931215577 Active Angela Sheehan AUGMENTIN 875-125 MG TAB 1 PO BID SLOANE XICILLIN-POT CLAVULANATE 14248603081 No Longer Active Angela AQUINO'S NASAL SPRAY (DEXAMETHASONE, GENTAMICIN, SA LINE) 2 puffs each nostril TID for [address] ADAIR NASAL SP RAY (DEXAMETHASONE, GENTAMICIN, SALINE) No Longer Active Angela Sheehan PHENTERMINE HCL 37.5 MG CAPS 1 PO Daily PHENTER MINE HCL 21444373833 No Longer Active Angela Sheehan LOTENSIN 10 MG TAB 1 PO daily BENAZEPRIL HCL 70064663 003 Active Marta Dimas BENICAR 20 MG TABS 1/2 PO daily OLMESARTAN MEDO XOMIL 26806143367 No Longer Active Angela Sheehan LASIX 20 MG TAB 1 PO QD (on hold) FUROSEMIDE 000 76127934 No Longer Active Angela Sheehan PLENDIL 5 MG TB24 1 PO daily FELODIPINE 056861621 00 No Longer Active Angelaedgar Sheehan ALDACTONE 50 MG TABS 1 PO daily for HTN SPIRONOLA CTONE 01355272401 Active Marta AQUINO'Alexander NASAL SPRAY 2 sprays each nostril TID x 7 days 01/27 DR. ADAIR NASAL SPRAY No Longer Active Marta Dimas AUGMENTIN 500-125 MG TABS 1 po BID x 7 days AMOXICILLIN- POT CLAVULANATE 30254899587 No Longer Active Marta Dimas ZITHROMAX Z-YU 250 MG TABS 2 po the first day, then 1 po x 4 da ys AZITHROMYCIN 97728947887 No Longer Active Marta Dimas POTASSIUM CHLORIDE CR 10 MEQ TBCR 1 po daily POTASSIUM CHLORIDE 74328613837 No Longer Active Angela Sheehan TOPROL XL 25 MG TB24 1 PO daily METOPROLOL SUCC INATE 08888097277 No Longer Active Angela Sheehan TAPAZOLE 10 MG TABS 6 pills PO daily METHIMAZOL E 13255009676 No Longer Active Angela ADAIR MAGIC NASAL SPRAY 2 PUFFS EACH NOSTRIL TID DR ADAIR MAGIC NASAL SPRAY No Longer Active Angela Sheehan AMOXICILLIN 500 MG CAP 1 PO TID AMOXICILLIN 633 04631431 No Longer Active Angela Sheehan DYAZIDE 37.5-25 MG CAPS 1 po daily TRIAMTERENE-HC TZ 07685997659 Active Marta Dimas STOOL SOFTENER 100 MG CAPS 2 tabs daily DOCUSATE SODIUM 48907038900 Active Angela Sheehan Immunizations Vaccine Administration Date [...] mg/dL Encounters Code Encounter Date Provider Facility CPT-70442 Ofc Vst, Est Level IV 13:36:26 CDT Angela Sheehan DO, FACP CPT-28001 Ofc Vst, Est Level IV 20:09:34 RUBY [employer] 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 Angela Sheehan DO, FACP CPT-90759 Ofc Vst, Est Level III 16:58:51 CDT Angela Sheehan DO, FACP CPT-98462 Ofc Vst, Est Level IV 16:32:55 CDT Angela Sheehan DO, FACP CPT-85966 Ofc Vst, Est Level IV 16:18:42 RUBY [employer] 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 Angela Sherry Munoz Sheehan, DO, FACP CPT-38236 Ofc Vst, Est Level IV 16:22:46 CDT Angela Sherry Munoz Sheehan, DO, FACP CPT-20261 Ofc Vst, Est Level IV 16:33:52 CDT Angela Sherry Munoz Sheehan, DO, FACP CPT-93174 Ofc Vst, Est Level IV 15:57:21 RUBY ON 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 Angela Sherry Munoz Sheehan, DO, FACP CPT-90490 Ofc Vst, Est Level IV 16:03:21 CDT Angela Sherry Munoz Sheehan, DO, FACP CPT-68543 Ofc Vst, Est Level IV 16:28:10 CDT Angela Sherry Munoz Sheehan, DO, FACP CPT-92175 Ofc Vst, Est Level IV 15:33:01 RUBY [employer] 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 Angela Sherry Munoz Sheehan, DO, FACP CPT-55107 Ofc Vst, Est Level IV 16:37:11 CDT Angela Sherry Munoz Sheehan, DO, FACP CPT-00256 Ofc Vst, Est Level III 10:40:43 CDT Angela S qasim Miller S Sheehan, DO, FACP CPT-40638 Ofc Vst, Est Level IV 15:31:08 CDT Angela Sherry Munoz Sheehan, DO, FACP CPT-56075 Ofc Vst, Est Level IV 14:06:55 RUBY [employer] 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 Angela Munoz Sheehan, DO, FACP CPT-41853 Ofc Vst, Est Level IV 11:35:17 RUBY [employer] 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 Angela Sherry Munoz Sheehan, DO, FACP CPT-48822 Ofc Vst, Est Level III 17:12:08 CDT Angela S qasim Gomezi Alexander Sissy, DO, FACP CPT-98400 Ofc Vst, Est Level IV 14:39:07 CDT Angela Sherry Munoz Sissy, DO, FACP CPT-45876 Ofc Vst, Est Level III 16:48:54 CDT Angela S qasim Munoz Sissy, DO, FACP CPT-83886 Ofc Vst, Est Level IV 17:24:56 CDT Angela Sherry Harrisonner Angela Alexander Sissy, DO, FACP CPT-76058 Ofc Vst, Est Level III 15:01:47 CDT Angela S qasim Harrisonner Angela Munoz Sissy, DO, FACP CPT-59026 Ofc Vst, Est Level IV 11:46:33 CDT Angela Sherry Harrisonner Angela Munoz Sissy, DO, FACP CPT-73657 Ofc Vst, Est Level V 16:42:52 CDT Angela Aisha Gomezi Alexander Sissy, DO, FACP CPT-87632 Ofc Vst, Est Level IV 09:33:53 CDT Angela Sherry gonzalez Sissy Angela Munoz Sissy, DO, FACP CPT-47275 Ofc Vst, Est Level IV 15:34:29 CDT Angela Sherry gonzalez Sissy Angela Munoz Sissy, DO, FACP CPT-11762 Ofc Vst, Est Level IV 16:30:35 CDT Angela Sherry gonzalez Sissy Angela Alexander Sissy, DO, FACP CPT-29251 Ofc Vst, Est Level IV 09:45:42 CDT Angela Sherry lisa Sheehan [facility] [place] CPT-63837 Ofc Vst, Est Level IV 17:17:04 CDT Angela Sherry lisa Sheehan [facility] [place] CPT-98257 Ofc Vst, Est Level III 11:25:55 RU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 Angela S uzanne Sheehan [facility] [place] CPT-93925 Ofc Vst, Est Level III 16:38:15 RU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 Angela S uzanne Sheehan [facility] [place] CPT-04001 Ofc Vst, Est Level III 10:30:19 RUBY [employer] 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 Angela S uzanne Sheehan [facility] [place] CPT-18913 Ofc Vst, Est Level III 15:49:08 RUBY ON 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 Angela S uzanne Sheehan [facility] [place] CPT-19234 Ofc Vst, Est Level III 17:33:10 CDT Angela S uzanne Sheehan [facility] [place] CPT-88759 Ofc Vst, Est Level III 16:04:47 CDT Angela S uzanne Sheehan [facility] [place] CPT-54511 Ofc Vst, Est Level III 11:21:24 CDT Angela S uzanne Sheehan [facility] [place] CPT-00931 Ofc Vst, Est Level III 15:56:17 CDT Angela S uzanne Sheehan [facility] [place] CPT-05549 Ofc Vst, Est Level III 10:48:16 CDT Angela S uzanne Sheehan [facility] [place] CPT-10180 Ofc Vst, Est Level III 19:48:03 CDT Angela S uzanne Sheehan [facility] [place] CPT-01081 Ofc Vst, New Level III 10:28:40 CDT Angela S uzanne Sheehan [facility] [place] Procedures Code Procedure Name Date Entry Date Standard Desc ription CPT-80150 Preventive, Est, (40-64) 20:42:16 CDT 02/03 CPT-77510 Preventive, Est, (40-64) 14:13:37 CDT 04/01 CPT-72328 Preventive, Est, (40-64) 16:58:36 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 10/13 CPT-23936 Preventive, Est, (40-64) 15:32:47 RU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 11/04 CPT-14393 Handling of specimen from office to lab 15:32:47 RU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 CPT-81208 EKG w/ Interpretation 16:42:52 CDT CPT-95637 Preventive, Est, (40-64) 12:49:32 RU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 02/06
--- OUTSIDE RECORDS SUMMARY | 2020-06-23 08:10 | XMS REPORT | Clinical Summary ---
Author Author Nia hernandez [facility] [place] [place] [address] Phone Unavailable Allergies, Adverse Reactions, Alerts Allergy Name Reaction Description Start Date Severity Status Pr ovider FELODIPINE PAC Critical Active Angela Sheehan Conditions or Problems Problem Name Problem Code Onset Date Status Entry Date Provider Comment Standard Description Annotate HYPERTENSION, BENIGN ESSENTIAL, CONTROLLED 401.1 Acti ve Angela Sheehan ESSENTIAL HYPERTENSION, BENIGN LIPID DISORDER 272.9 Active Angela العلي r UNSPECIFIED DISORDER OF LIPOID METABOLISM HYPOTHYROIDISM, POST-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 Active Angela Sheehan IODINE HYPOTHYROIDISM ABNORMAL MAMMOGRAM 793.80 Active Marta Dimas UNSPECIFIED ABNORMAL MAMMOGRAM HEALTH SCREENING V70.0 Active Angela calloway ROUTINE GENERAL MEDICAL EXAMINATION AT [facility] Medication List Medication Instructions Start Date Stop Date Generic Name NDC Status Provider Patient Instruction STOOL SOFTENER 100 MG CAPS 2 tabs daily DOCUSATE SODIUM 69941110998 Active Angela Sheehan DYAZIDE 37.5-25 MG CAPS 1 po daily TRIAMTERENE-HC TZ 19890552953 Active Marta Dimas ALDACTONE 50 MG TABS 1 PO daily for HTN SPIRONOLA CTONE 51305200494 Active Marta Dimas LOTENSIN 10 MG TAB 1 PO daily BENAZEPRIL HCL 79487694 730 Active Marta Dimas VITAMIN D 1000 UNIT TABS 1 PO Daily CHOLECALCIFER OL 96422220240 Active Angela Sheehan ESTRACE 1 MG TABS I po daily ESTRADIOL 02720888910 Activ e Marta Dimas SYNTHROID 0.025 MG TAB 1/2 PO daily with 150 mcg dosing LEVOTHYROXINE SODIUM 66451872696 Active Angela Sheehan SYNTHROID 150 MCG TABS 1 PO daily along with 12.5 mcg dosing 12/08 LEVOTHYROXINE SODIUM 49970761559 Active Marta Dimas POTASSIUM CHLORIDE ER 10 MEQ CR-CAPS 1 PO DAILY POTASSIUM CHLORIDE 26744225059 Active Marta Dimas PREMARIN 0.625 MG/GM CREA Apply to affected area daily prn ESTROGENS, CONJUGATED VAGINAL 78204625033 Active Angela Harrisonellen er Vital Signs Date Name Value Unit Range Description blood pressure, diastolic 70 mm[Hg] BP lacey blood pressure, systolic 130 mm[Hg] BP sys pulse rate E&M 80 /min Heart rate respiratory rate E&M 14 /min Resp iratory rate weight E&M 218 [lb_av] Weight Measure d blood pressure, diastolic 80 mm[Hg] BP lacey blood pressure, systolic 132 mm[Hg] BP sys pulse rate E&M 80 /min Heart rate respiratory rate E&M 14 /min Resp iratory rate temperature E&M 98.6 [degF] Bdy temp weight E&M 215 [lb_av] Weight Measure d blood pressure, diastolic 80 mm[Hg] BP lacey blood pressure, systolic 135 mm[Hg] BP sys pulse rate E&M 88 /min Heart rate respiratory rate E&M 14 /min Resp iratory rate temperature E&M 98.6 [degF] Bdy temp weight E&M 215 [lb_av] Weight Measure d Diagnostic Results Date Name Value Unit Range Description Clinical Lists Update: CBC,CMP,FLP,TSH,F ree T4 - Chemistry albumin, serum 4.2 g/dL LDL cholesterol, serum 118 mg/dL alkaline phosphatase, serum 41 U/L glucose, plasma fasting 91 mg/dL urea nitrogen, blood 20 mg/dL cholesterol/HDL ratio, serum 5.0 calcium, serum 9.6 mg/dL anion gap, serum 13 chloride, serum 101 mmol/L sodium, serum 137 mmol/L cholesterol, serum 203 mg/dL triglyceride, serum, fasting 221 mg/dL carbon dioxide, venous blood 27.0 mmol/L bilirubin, serum, total 0.4 mg/dL creatinine, serum 1.1 mg/dL alanine aminotransferase (SGPT), serum 15 U/L thyroxine, serum, free 1.03 ng/dL aspartate aminotransferase (SGOT), serum 16 U/L HDL cholesterol, serum 41.0 mg/dL protein, total, serum 7.1 g/dL thyroid stimulating hormone, serum 1.01 u[iU]/mL potassium, serum 3.5 mmol/L Estimated Glomerular Filtration Rate (calc) 58 mL/ min/1.73m2 Clinical Lists Update: CBC,CMP,FLP,TSH,F ree T4 - Hematology hemoglobin, blood 14.1 g/dL hematocrit, blood 44 % platelet count 307 10*3/mm3 erythrocyte (RBC) count 4.82 10*6/mm3 leukocyte count, blood 8.5 10*3/mm3 mean corpuscular volume, RBC 90 fL red blood cell distribution width 15.4 % Clinical Lists Update: CMP,FLP,TSH,Free T4,HgA1c - Chemistry aspartate aminotransferase (SGOT), serum 17 U/L LDL cholesterol, serum 125 mg/dL alanine aminotransferase (SGPT), serum 14 U/L carbon dioxide, venous blood 29.0 mmol/L bilirubin, serum, total 0.4 mg/dL cholesterol, serum 199 mg/dL triglyceride, serum, fasting 168 mg/dL chloride, serum 100 mmol/L sodium, serum 137 mmol/L calcium, serum 9.6 mg/dL anion gap, serum 12 urea nitrogen, blood 19 mg/dL cholesterol/HDL ratio, serum 5.0 alkaline phosphatase, serum 41 U/L glucose, plasma fasting 92 mg/dL albumin, serum 4.2 g/dL Estimated Glomerular Filtration Rate (calc) 60 mL/ min/1.73m2 thyroxine, serum, free 1.02 ng/dL protein, total, serum 7.1 g/dL HDL cholesterol, serum 40.0 mg/dL hemoglobin A1C, blood, as % of total hemoglobin 5.7 % potassium, serum 3.5 mmol/L thyroid stimulating hormone, serum 6.61 u[iU]/mL creatinine, serum 1.0 mg/dL
--- OUTSIDE RECORDS SUMMARY | 2020-06-23 08:10 | XMS REPORT | Clinical Summary ---
Author Author Nia hernandez Organization [facility] [place] [address] Phone Unavailable Allergies, Adverse Reactions, Alerts Allergy [...] MG CAPS 2 tabs daily DOCUSATE SODIUM 23313528642 Active Angela Sheehan DYAZIDE 37.5-25 MG CAPS 1 po daily TRIAMTERENE-HC TZ 90437005436 Active Marta Dimas ALDACTONE 50 MG TABS 1 PO daily for HTN SPIRONOLA CTONE 27244811172 Active Marta Dimas LOTENSIN 10 MG TAB 1 PO daily BENAZEPRIL HCL 05478861 730 Active Marta Dimas VITAMIN D 1000 UNIT TABS 1 PO Daily CHOLECALCIFER OL 88921772378 Active Angela Sheehan ESTRACE 1 MG TABS I po daily ESTRADIOL 17610788975 Activ e Marta Dimas SYNTHROID 0.025 MG TAB 1/2 PO daily with 150 mcg dosing LEVOTHYROXINE SODIUM 02607070056 Active Angela Sheehan SYNTHROID 150 MCG TABS 1 PO daily along with 12.5 mcg dosing 12/08 LEVOTHYROXINE SODIUM 31681688597 Active Marta Dimas POTASSIUM CHLORIDE ER 10 MEQ CR-CAPS 1 PO DAILY POTASSIUM CHLORIDE 48466715862 Active Marta Dimas PREMARIN 0.625 MG/GM CREA Apply to affected area daily prn ESTROGENS, CONJUGATED VAGINAL 71182610789 Active Angela Harrisonellen er Vital Signs Date [...]
--- OUTSIDE RECORDS SUMMARY | 2020-06-23 08:10 | XMS REPORT | Clinical Summary ---
Author Author User, Nia Cage Organization [facility] Address Unknown Phone Unavailable Allergies, [...] Sheehan Routine general medical examination at a [facility] SINUSITIS, ACUTE 461.9 Resolved [...] affected area daily prn ESTROGENS, CONJUGATED VAGINAL 06225683838 Active Angela Montoya er POTASSIUM CHLORIDE ER 10 MEQ CR-CAPS 1 PO DAILY POTASSIUM CHLORIDE 31659746461 Active Marta Dimas SYNTHROID 150 MCG TABS 1 PO daily along with 12.5 mcg dosing 12/08 LEVOTHYROXINE SODIUM 83290533388 Active Marta Dimas SYNTHROID 0.025 MG TAB 1/2 PO daily with 150 mcg dosing LEVOTHYROXINE SODIUM 19549046807 Active Marta Dimas SYNTHROID 137 MCG TABS 1 PO every other day alternating with 150 mcg LEVOTHYROXINE SODIUM 30766288673 No Longer Active Angelaedgar Sheehan ESTRACE 1 MG TABS I po daily ESTRADIOL 46097661446 Activ e Marta Dimas FEOSOL 200 (65 FE) MG TABS 1 PO daily with breakfast 2 FERROUS SULFATE DRIED 60337735247 No Longer Active Angela Sheehan VITAMIN D 1000 UNIT TABS 1 PO Daily CHOLECALCIFER OL 55159846092 Active Angela Sheehan AUGMENTIN 875-125 MG TAB 1 PO BID SLOANE XICILLIN-POT CLAVULANATE 70041235975 No Longer Active Angela AQUINO'S NASAL SPRAY (DEXAMETHASONE, GENTAMICIN, SA LINE) 2 puffs each nostril TID for [address] ADAIR NASAL SP RAY (DEXAMETHASONE, GENTAMICIN, SALINE) No Longer Active Angela Sheehan PHENTERMINE HCL 37.5 MG CAPS 1 PO Daily PHENTER MINE HCL 67892082815 No Longer Active Angela Sheehan LOTENSIN 10 MG TAB 1 PO daily BENAZEPRIL HCL 92242902 003 Active Marta Dimas BENICAR 20 MG TABS 1/2 PO daily OLMESARTAN MEDO XOMIL 44100343904 No Longer Active Angela Sheehan LASIX 20 MG TAB 1 PO QD (on hold) FUROSEMIDE 000 25895676 No Longer Active Angela Sheehan PLENDIL 5 MG TB24 1 PO daily FELODIPINE 245197504 00 No Longer Active Angelaedgar Sheehan ALDACTONE 50 MG TABS 1 PO daily for HTN SPIRONOLA CTONE 55831057546 Active Marta AQUINO'Alexander NASAL SPRAY 2 sprays each nostril TID x 7 days 01/27 DR. ADAIR NASAL SPRAY No Longer Active Marta Dimas AUGMENTIN 500-125 MG TABS 1 po BID x 7 days AMOXICILLIN- POT CLAVULANATE 33246030882 No Longer Active Marta Dimas ZITHROMAX Z-YU 250 MG TABS 2 po the first day, then 1 po x 4 da ys AZITHROMYCIN 56696732224 No Longer Active Marta Dimas POTASSIUM CHLORIDE CR 10 MEQ TBCR 1 po daily POTASSIUM CHLORIDE 50210660496 No Longer Active Angela Sheehan TOPROL XL 25 MG TB24 1 PO daily METOPROLOL SUCC INATE 51900531740 No Longer Active Angela Sheehan TAPAZOLE 10 MG TABS 6 pills PO daily METHIMAZOL E 90239403633 No Longer Active Angela ADAIR MAGIC NASAL SPRAY [address] PU[address]S E[address] NOSTRIL T[address] ADAIR MAGIC NASAL SPRAY No Longer Active Angela Sheehan AMOXICILLIN 500 MG CAP 1 PO TID AMOXICILLIN 633 25647982 No Longer Active Angela Sheehan DYAZIDE 37.5-25 MG CAPS 1 po daily TRIAMTERENE-HC TZ 90272061182 Active Marta Dimas STOOL SOFTENER 100 MG CAPS 2 tabs daily DOCUSATE SODIUM 82361214665 Active Angela Sheehan Immunizations Vaccine Administration Date [...] min/1.73m2 Encounters Code Encounter Date Provider Facility CPT-48095 Ofc Vst, Est Level IV 13:36:26 CDT Angela Sheehan DO, FACP CPT-74577 Ofc Vst, Est Level IV 20:09:34 LEGAL INSTRUCTOR Angela Sherry Gomezi Alexander Sheehan, DO, FACP CPT-20115 Ofc Vst, Est Level III 16:58:51 CDT Angela S qasim Gomezi Alexander Sheehan, DO, FACP CPT-69823 Ofc Vst, Est Level IV 16:32:55 CDT Angela Sherry Gomezi Alexander Sheehan, DO, FACP CPT-76790 Ofc Vst, Est Level IV 16:18:42 LEGAL INSTRUCTOR Angela Sherry Gomezi S Sheehan, DO, FACP CPT-59942 Ofc Vst, Est Level IV 16:22:46 CDT Angela Sherry Gomezi S Sheehan, DO, FACP CPT-71816 Ofc Vst, Est Level IV 16:33:52 CDT Angela Sherry Gomezi Alexander Sheehan, DO, FACP CPT-39962 Ofc Vst, Est Level IV 15:57:21 LEGAL INSTRUCTOR Angela Sherry Gomezi S Sheehan, DO, FACP CPT-08554 Ofc Vst, Est Level IV 16:03:21 CDT Angela Sherry Gomezi S Sheehan, DO, FACP CPT-05984 Ofc Vst, Est Level IV 16:28:10 CDT Angela Sherry Gomezi Alexander Sheehan, DO, FACP CPT-29394 Ofc Vst, Est Level IV 15:33:01 LEGAL INSTRUCTOR Angela Sherry Gomezi Alexander Sheehan, DO, FACP CPT-28881 Ofc Vst, Est Level IV 16:37:11 CDT Angela Sherry Gomezi S Sheehan, DO, FACP CPT-96872 Ofc Vst, Est Level III 10:40:43 CDT Angela S qasim Gomezi S Sheehan, DO, FACP CPT-37017 Ofc Vst, Est Level IV 15:31:08 CDT Angela Sherry Munoz Sheehan, DO, FACP CPT-95672 Ofc Vst, Est Level IV 14:06:55 LEGAL INSTRUCTOR Angela Sherry Munoz Sheehan, DO, FACP CPT-58617 Ofc Vst, Est Level IV 11:35:17 LEGAL INSTRUCTOR Angela Sherry Munoz Sheehan, DO, FACP CPT-59477 Ofc Vst, Est Level III 17:12:08 CDT Angela S qasim Gomezi Alexander Sheehan, DO, FACP CPT-68021 Ofc Vst, Est Level IV 14:39:07 CDT Angela Sherry Munoz Sheehan, DO, FACP CPT-20084 Ofc Vst, Est Level III 16:48:54 CDT Angela S qasim Munoz Sheehan, DO, FACP CPT-44428 Ofc Vst, Est Level IV 17:24:56 CDT Angela Sherry Gomezi Alexander Sheehan, DO, FACP CPT-72210 Ofc Vst, Est Level III 15:01:47 CDT Angela S qasim Gomezi Alexander Sheehan, DO, FACP CPT-76142 Ofc Vst, Est Level IV 11:46:33 CDT Angela Sherry Munoz Sissy, DO, FACP CPT-51792 Ofc Vst, Est Level V 16:42:52 CDT Angela Aisha Sheehan Angela Alexander Sheehan, DO, FACP CPT-16638 Ofc Vst, Est Level IV 09:33:53 CDT Angela Sherry Munoz Sheehan, DO, FACP CPT-86612 Ofc Vst, Est Level IV 15:34:29 CDT Angela Sherry Munoz Sissy, DO, FACP CPT-54517 Ofc Vst, Est Level IV 16:30:35 CDT Angela Sherry Sheehan, DO, FACP CPT-09660 Ofc Vst, Est Level IV 09:45:42 CDT Angela Powell lisa Sheehan [facility] [place] CPT-78322 Ofc Vst, Est Level IV 17:17:04 CDT Angela Sherry Sheehan [facility] [place] CPT-68800 Ofc Vst, Est Level III 11:25:55 LEGAL INSTRUCTOR Angela S uanuradhanne Sissy [facility] [place] CPT-36246 Ofc Vst, Est Level III 16:38:15 LEGAL INSTRUCTOR Angela S uzanne Sissy [facility] [place] CPT-26693 Ofc Vst, Est Level III 10:30:19 LEGAL INSTRUCTOR Angela S uzanne Sissy [facility] [place] CPT-48934 Ofc Vst, Est Level III 15:49:08 LEGAL INSTRUCTOR Angela S uanuradhanne Sissy [facility] [place] CPT-33212 Ofc Vst, Est Level III 17:33:10 CDT Angela S uzanne Sissy [facility] [place] CPT-69649 Ofc Vst, Est Level III 16:04:47 CDT Angela S uzanne Sissy [facility] [place] CPT-96560 Ofc Vst, Est Level III 11:21:24 CDT Angela S uzanne Sissy [facility] [place] CPT-53556 Ofc Vst, Est Level III 15:56:17 CDT Angela S uzanne Sissy [facility] [place] CPT-00646 Ofc Vst, Est Level III 10:48:16 CDT Angela S uzanne Sheehan [facility] [place] CPT-99346 Ofc Vst, Est Level III 19:48:03 CDT Angela S uzanne Sheehan [facility] [place] CPT-95444 Ofc Vst, New Level III 10:28:40 CDT Angela S uzanne Sheehan [facility] [place] Procedures Code Procedure Name Date Entry Date Standard Desc ription CPT-74148 Preventive, Est, (40-64) 20:42:16 CDT 02/03 CPT-40144 Preventive, Est, (40-64) 14:13:37 CDT 04/01 CPT-27226 Preventive, Est, (40-64) 16:58:36 LEGAL INSTRUCTOR 10/13 CPT-90499 Preventive, Est, (40-64) 15:32:47 LEGAL INSTRUCTOR 11/04 CPT-56716 Handling of specimen from office to lab 15:32:47 LEGAL INSTRUCTOR CPT-40845 EKG w/ Interpretation 16:42:52 CDT CPT-66806 Preventive, Est, (40-64) 12:49:32 LEGAL INSTRUCTOR 02/06
--- OUTSIDE RECORDS SUMMARY | 2020-06-23 08:10 | XMS REPORT | Clinical Summary ---
Author Author Nia hernandez Organization [facility] Physician [facility] [place] [address] Phone Unavailable Allergies, Adverse Reactions, Alerts Allergy [...] MG CAPS 2 tabs daily DOCUSATE SODIUM 44443306373 Active Angela Sheehan DYAZIDE 37.5-25 MG CAPS 1 po daily TRIAMTERENE-HC TZ 78073203454 Active Marta Dimas ALDACTONE 50 MG TABS 1 PO daily for HTN SPIRONOLA CTONE 09485016378 Active Marta Dimas LOTENSIN 10 MG TAB 1 PO daily BENAZEPRIL HCL 97770234 730 Active Marta Dimas VITAMIN D 1000 UNIT TABS 1 PO Daily CHOLECALCIFER OL 55987430570 Active Angela Sheehan ESTRACE 1 MG TABS I po daily ESTRADIOL 87597793222 Activ e Marta Dimas SYNTHROID 0.025 MG TAB 1/2 PO daily with 150 mcg dosing LEVOTHYROXINE SODIUM 53041617985 Active Angela Sheehan SYNTHROID 150 MCG TABS 1 PO daily along with 12.5 mcg dosing 12/08 LEVOTHYROXINE SODIUM 77040236735 Active Marta Dimas POTASSIUM CHLORIDE ER 10 MEQ CR-CAPS 1 PO DAILY POTASSIUM CHLORIDE 36624213403 Active aMrta Dimas PREMARIN 0.625 MG/GM CREA Apply to affected area daily prn ESTROGENS, CONJUGATED VAGINAL 65064828103 Active Angela Montoya er Vital Signs Date Name Value Unit [...] Lists Update: CBC,CMP,FLP,TSH,F ree T4 - Chemistry chloride, serum 101 mmol/L thyroxine, serum, free 1.03 ng/dL bilirubin, serum, total 0.4 mg/dL HDL cholesterol, serum 41.0 mg/dL cholesterol/HDL ratio, serum 5.0 thyroid stimulating hormone, serum 1.01 u[iU]/mL triglyceride, serum, fasting 221 mg/dL albumin, serum 4.2 g/dL potassium, serum 3.5 mmol/L alkaline phosphatase, serum 41 U/L sodium, serum 137 mmol/L urea nitrogen, blood 20 mg/dL protein, total, serum 7.1 g/dL calcium, serum 9.6 mg/dL glucose, plasma fasting 91 mg/dL aspartate aminotransferase (SGOT), serum 16 U/L cholesterol, serum 203 mg/dL anion gap, serum 13 carbon dioxide, venous blood 27.0 mmol/L alanine aminotransferase (SGPT), serum 15 U/L creatinine, serum 1.1 mg/dL Estimated Glomerular Filtration Rate (calc) 58 mL/ min/1.73m2 LDL cholesterol, serum 118 mg/dL Clinical Lists Update: CBC,CMP,FLP,TSH,F ree T4 - Hematology hematocrit, blood 44 % red blood cell distribution width 15.4 % mean corpuscular volume, RBC 90 fL leukocyte count, blood 8.5 10*3/mm3 erythrocyte (RBC) count 4.82 10*6/mm3 platelet count 307 10*3/mm3 hemoglobin, blood 14.1 g/dL Clinical Lists Update: CMP,FLP,TSH,Free T4 - Chemistry albumin, serum 4.0 g/dL alkaline phosphatase, serum 43 U/L urea nitrogen, blood 18 mg/dL calcium, serum 8.9 mg/dL chloride, serum 103 mmol/L cholesterol, serum 183 mg/dL carbon dioxide, venous blood 27.0 mmol/L creatinine, serum 0.9 mg/dL thyroxine, serum, free 1.13 ng/dL HDL cholesterol, serum 38.0 mg/dL thyroid stimulating hormone, serum 1.96 u[iU]/mL LDL cholesterol, serum 107 mg/dL potassium, serum 3.9 mmol/L protein, total, serum 6.7 g/dL aspartate aminotransferase (SGOT), serum 20 U/L alanine aminotransferase (SGPT), serum 19 U/L bilirubin, serum, total 0.3 mg/dL triglyceride, serum, fasting 188 mg/dL sodium, serum 136 mmol/L anion gap, serum 10 cholesterol/HDL ratio, serum 4.8 glucose, plasma fasting 86 mg/dL Clinical Lists Update: CMP,FLP,TSH,Free T4,HgA1c - Chemistry Estimated Glomerular Filtration Rate (calc) 60 mL/ min/1.73m2 glucose, plasma fasting 92 mg/dL cholesterol/HDL ratio, serum 5.0 anion gap, serum 12 sodium, serum 137 mmol/L triglyceride, serum, fasting 168 mg/dL bilirubin, serum, total 0.4 mg/dL alanine aminotransferase (SGPT), serum 14 U/L aspartate aminotransferase (SGOT), serum 17 U/L protein, total, serum 7.1 g/dL potassium, serum 3.5 mmol/L LDL cholesterol, serum 125 mg/dL thyroid stimulating hormone, serum 6.61 u[iU]/mL hemoglobin A1C, blood, as % of total hemoglobin 5.7 % HDL cholesterol, serum 40.0 mg/dL thyroxine, serum, free 1.02 ng/dL creatinine, serum 1.0 mg/dL carbon dioxide, venous blood 29.0 mmol/L cholesterol, serum 199 mg/dL chloride, serum 100 mmol/L calcium, serum 9.6 mg/dL urea nitrogen, blood 19 mg/dL alkaline phosphatase, serum 41 U/L albumin, serum 4.2 g/dL
--- OUTSIDE RECORDS SUMMARY | 2020-06-23 08:10 | XMS REPORT | Clinical Summary ---
Author Author User, Nia Cage Organization [facility] Address Unknown Phone Unavailable Allergies, Adverse [...] Sheehan Routine general medical examination at a [facility] care facility SINUSITIS, ACUTE 461.9 Resolved Angela [...] affected area daily prn ESTROGENS, CONJUGATED VAGINAL 11974759873 Active Angela Montoya er POTASSIUM CHLORIDE ER 10 MEQ CR-CAPS 1 PO DAILY POTASSIUM CHLORIDE 40717091562 Active Marta Dimas SYNTHROID 150 MCG TABS 1 PO daily along with 12.5 mcg dosing 12/08 LEVOTHYROXINE SODIUM 72988266055 Active Marta Dimas SYNTHROID 0.025 MG TAB 1/2 PO daily with 150 mcg dosing LEVOTHYROXINE SODIUM 49977672873 Active Marta Dimas SYNTHROID 137 MCG TABS 1 PO every other day alternating with 150 mcg LEVOTHYROXINE SODIUM 63560631322 No Longer Active Angelaedgar Sheehan ESTRACE 1 MG TABS I po daily ESTRADIOL 23879810836 Activ e Marta Dimas FEOSOL 200 (65 FE) MG TABS 1 PO daily with breakfast 2 FERROUS SULFATE DRIED 91998880098 No Longer Active Angela Sheehan VITAMIN D 1000 UNIT TABS 1 PO Daily CHOLECALCIFER OL 32865099008 Active Angela Sheehan AUGMENTIN 875-125 MG TAB 1 PO BID SLOANE XICILLIN-POT CLAVULANATE 20864637603 No Longer Active Angela AQUINO'S NASAL SPRAY (DEXAMETHASONE, GENTAMICIN, SA LINE) 2 puffs each nostril TID for [address] ADAIR NASAL SP RAY (DEXAMETHASONE, GENTAMICIN, SALINE) No Longer Active Angela Sheehan PHENTERMINE HCL 37.5 MG CAPS 1 PO Daily PHENTER MINE HCL 49702784563 No Longer Active Angela Sheehan LOTENSIN 10 MG TAB 1 PO daily BENAZEPRIL HCL 36432911 003 Active Marta Dimas BENICAR 20 MG TABS 1/2 PO daily OLMESARTAN MEDO XOMIL 46842556930 No Longer Active Angela Sheehan LASIX 20 MG TAB 1 PO QD (on hold) FUROSEMIDE 000 31322252 No Longer Active Angela Sheehan PLENDIL 5 MG TB24 1 PO daily FELODIPINE 931505897 00 No Longer Active Angelaedgar Sheehan ALDACTONE 50 MG TABS 1 PO daily for HTN SPIRONOLA CTONE 05405120340 Active Marta AQUINO'Alexander NASAL SPRAY 2 sprays each nostril TID x 7 days 01/27 DR. ADAIR NASAL SPRAY No Longer Active Marta Dimas AUGMENTIN 500-125 MG TABS 1 po BID x 7 days AMOXICILLIN- POT CLAVULANATE 92022904193 No Longer Active Marta Dimas ZITHROMAX Z-YU 250 MG TABS 2 po the first day, then 1 po x 4 da ys AZITHROMYCIN 66667506670 No Longer Active Marta Dimas POTASSIUM CHLORIDE CR 10 MEQ TBCR 1 po daily POTASSIUM CHLORIDE 34108167409 No Longer Active Angela Sheehan TOPROL XL 25 MG TB24 1 PO daily METOPROLOL SUCC INATE 29578400117 No Longer Active Angela Sheehan TAPAZOLE 10 MG TABS 6 pills PO daily METHIMAZOL E 03145706914 No Longer Active Angela ADAIR MAGIC NASAL SPRAY 2 PUFFS EACH NOSTRIL TID DR ADAIR MAGIC NASAL SPRAY No Longer Active Angela Sheehan AMOXICILLIN 500 MG CAP 1 PO TID AMOXICILLIN 633 33683531 No Longer Active Angela Sheehan DYAZIDE 37.5-25 MG CAPS 1 po daily TRIAMTERENE-HC TZ 75869532337 Active Marta Dimas STOOL SOFTENER 100 MG CAPS 2 tabs daily DOCUSATE SODIUM 24977797596 Active Angela Sheehan Immunizations Vaccine Administration Date [...] min/1.73m2 Encounters Code Encounter Date Provider Facility CPT-97085 Ofc Vst, Est Level IV 13:36:26 CDT Angela Sheehan DO, FACP CPT-75953 Ofc Vst, Est Level IV 20:09:34 [employer] Angela Sherry Gomezi Alexander Sheehan, DO, FACP CPT-56350 Ofc Vst, Est Level III 16:58:51 CDT Angela S qasim Gomezi Alexander Sheeahn, DO, FACP CPT-58397 Ofc Vst, Est Level IV 16:32:55 CDT Angela Sherry Gomezi Alexander Sheehan, DO, FACP CPT-60190 Ofc Vst, Est Level IV 16:18:42 [employer] Angela Sherry Gomezi S Sheehan, DO, FACP CPT-89548 Ofc Vst, Est Level IV 16:22:46 CDT Angela Sherry Gomezi S Sheehan, DO, FACP CPT-71558 Ofc Vst, Est Level IV 16:33:52 CDT Angela Sherry Gomezi Alexander Sheehan, DO, FACP CPT-12578 Ofc Vst, Est Level IV 15:57:21 [employer]ELOP[employer] Angela Sheryr Gomezi S Sheehan, DO, FACP CPT-81852 Ofc Vst, Est Level IV 16:03:21 CDT Angela Sherry Gomezi S Sheehan, DO, FACP CPT-19932 Ofc Vst, Est Level IV 16:28:10 CDT Angela Sherry Gomezi Alexander Sheehan, DO, FACP CPT-46555 Ofc Vst, Est Level IV 15:33:01 [employer]OP[employer] Angela Sherry Gomezi Alexander Sheehan, DO, FACP CPT-78404 Ofc Vst, Est Level IV 16:37:11 CDT Angela Sherry Gomezi S Sheehan, DO, FACP CPT-83902 Ofc Vst, Est Level III 10:40:43 CDT Angela S qasim Gomezi S Sheehan, DO, FACP CPT-40320 Ofc Vst, Est Level IV 15:31:08 CDT Angela Sherry Munoz Sheehan, DO, FACP CPT-02875 Ofc Vst, Est Level IV 14:06:55 [employer]ELOP[employer] Angela Sherry Munoz Sheehan, DO, FACP CPT-16586 Ofc Vst, Est Level IV 11:35:17 [employer]ELOP[employer] Angela Sherry Munoz Sheehan, DO, FACP CPT-86655 Ofc Vst, Est Level III 17:12:08 CDT Angela S qasim Gomezi Alexander Sheehan, DO, FACP CPT-29194 Ofc Vst, Est Level IV 14:39:07 CDT Angela Sherry Munoz Sheehan, DO, FACP CPT-04415 Ofc Vst, Est Level III 16:48:54 CDT Angela S qasim Munoz Sheehan, DO, FACP CPT-76371 Ofc Vst, Est Level IV 17:24:56 CDT Angela Sherry Gomezi Alexander Sheehan, DO, FACP CPT-40446 Ofc Vst, Est Level III 15:01:47 CDT Angela S qasim Gomezi Alexander Sheehan, DO, FACP CPT-28178 Ofc Vst, Est Level IV 11:46:33 CDT Angela Sherry Munoz Sissy, DO, FACP CPT-12569 Ofc Vst, Est Level V 16:42:52 CDT Angela Aisha Sheehan Angela Alexander Sheehan, DO, FACP CPT-41636 Ofc Vst, Est Level IV 09:33:53 CDT Angela Sherry Munoz Sheehan, DO, FACP CPT-02780 Ofc Vst, Est Level IV 15:34:29 CDT Angela Sherry Munoz Sissy, DO, FACP CPT-66391 Ofc Vst, Est Level IV 16:30:35 CDT Angela Sherry Sheehan, DO, FACP CPT-80292 Ofc Vst, Est Level IV 09:45:42 CDT Angela Powell lisa Sheehan [facility] [place] CPT-51430 Ofc Vst, Est Level IV 17:17:04 CDT Angela Sherry Sheehan [facility] [place] CPT-08791 Ofc Vst, Est Level III 11:25:55 [employer]ELOP[employer] Angela S uanuradhanne Sissy [facility] [place] CPT-85296 Ofc Vst, Est Level III 16:38:15 [employer]ELOPMENT Angela S uzanne Sissy [facility] [place] CPT-32559 Ofc Vst, Est Level III 10:30:19 [employer]ELOPMENT Angela S uzanne Sissy [facility] [place] CPT-97521 Ofc Vst, Est Level III 15:49:08 [employer]ELOPMENT Angela S uanuradhanne Sissy [facility] [place] CPT-11357 Ofc Vst, Est Level III 17:33:10 CDT Angela S uzanne Sissy [facility] [place] CPT-74710 Ofc Vst, Est Level III 16:04:47 CDT Angela S uzanne Sissy [facility] [place] CPT-03698 Ofc Vst, Est Level III 11:21:24 CDT Angela S uzanne Sissy [facility] [place] CPT-45401 Ofc Vst, Est Level III 15:56:17 CDT Angela S uzanne Sissy [facility] [place] CPT-13332 Ofc Vst, Est Level III 10:48:16 CDT Angela S uzanne Sheehan [facility] [place] CPT-31564 Ofc Vst, Est Level III 19:48:03 CDT Angela S uzanne Sheehan [facility] [place] CPT-74788 Ofc Vst, New Level III 10:28:40 CDT Angela S uzanne Sheehan [facility] [place] Procedures Code Procedure Name Date Entry Date Standard Desc ription CPT-96196 Preventive, Est, (40-64) 20:42:16 CDT 02/03 CPT-91931 Preventive, Est, (40-64) 14:13:37 CDT 04/01 CPT-48324 Preventive, Est, (40-64) 16:58:36 HEAD [employer] BUSINESS DEVELOPMENT 10/13 CPT-67673 Preventive, Est, (40-64) 15:32:47 [employer]ELOPMENT 11/04 CPT-49987 Handling of specimen from office to lab 15:32:47 [employer]ELOPMENT CPT-19745 EKG w/ Interpretation 16:42:52 CDT CPT-81045 Preventive, Est, (40-64) 12:49:32 [employer] DEVELOPMENT 02/06
--- OUTSIDE RECORDS SUMMARY | 2020-06-23 08:10 | XMS REPORT | Clinical Summary ---
Author Author User, Nia Cage Organization [facility] Physician [facility] Address Unknown Phone Unavailable [...] MEQ CR-TABS 1 PO DAILY POTASSIUM CHLORIDE 05640336200 Active Marta Dimas PREMARIN 0.625 MG/GM CREA Apply to affected area daily prn ESTROGENS, CONJUGATED VAGINAL 40200166631 Active Angela Montoya er SYNTHROID 150 MCG TABS 1 PO daily along with 12.5 mcg dosing 12/08 LEVOTHYROXINE SODIUM 64249378749 Active Marta Dimsa SYNTHROID 0.025 MG TAB 1/2 PO daily with 150 mcg dosing LEVOTHYROXINE SODIUM 35370607002 Active Marta Dimas SYNTHROID 137 MCG TABS 1 PO every other day alternating with 150 mcg LEVOTHYROXINE SODIUM 22920883395 No Longer Active Angela Sheehan ESTRACE 1 MG TABS I po daily ESTRADIOL 36095282469 Activ e Marta Dimas FEOSOL 200 (65 FE) MG TABS 1 PO daily with breakfast 2 FERROUS SULFATE DRIED 61080331036 No Longer Active Angela Sheehan VITAMIN D 1000 UNIT TABS 1 PO Daily CHOLECALCIFER OL 52751066882 Active Angela Sheehan AUGMENTIN 875-125 MG TAB 1 PO BID SLOANE XICILLIN-POT CLAVULANATE 11277278982 No Longer Active Angela AQUINO'S NASAL SPRAY (DEXAMETHASONE, GENTAMICIN, SA LINE) 2 puffs each nostril TID for [address] AQUINO'S NASAL SP RAY (DEXAMETHASONE, GENTAMICIN, SALINE) No Longer Active Angela Sheehan PHENTERMINE HCL 37.5 MG CAPS 1 PO Daily PHENTER MINE HCL 73217803583 No Longer Active Angela Sheehan LOTENSIN 10 MG TAB 1 PO daily BENAZEPRIL HCL 97571580 003 Active Marta Dimas BENICAR 20 MG TABS 1/2 PO daily OLMESARTAN MEDO XOMIL 64658003457 No Longer Active Angela Sheehan LASIX 20 MG TAB 1 PO QD (on hold) FUROSEMIDE 000 53901136 No Longer Active Angela Sheehan PLENDIL 5 MG TB24 1 PO daily FELODIPINE 272455993 00 No Longer Active Angela Sheehan ALDACTONE 50 MG TABS 1 PO daily for HTN SPIRONOLA CTONE 64775150615 Active Marta AQUINO'Alexander NASAL SPRAY 2 sprays each nostril TID x 7 days 01/27 DR. ADAIR NASAL SPRAY No Longer Active Marta Dimas AUGMENTIN 500-125 MG TABS 1 po BID x 7 days AMOXICILLIN- POT CLAVULANATE 01279828516 No Longer Active Marta Dimas ZITHROMAX Z-YU 250 MG TABS 2 po the first day, then 1 po x 4 da ys AZITHROMYCIN 18910878261 No Longer Active Marta Dimas POTASSIUM CHLORIDE CR 10 MEQ TBCR 1 po daily POTASSIUM CHLORIDE 20614746772 No Longer Active Angela Sheehan TOPROL XL 25 MG TB24 1 PO daily METOPROLOL SUCC INATE 12978034469 No Longer Active Angela Sheehan TAPAZOLE 10 MG TABS 6 pills PO daily METHIMAZOL E 91212049298 No Longer Active Angela ADAIR MAGIC NASAL SPRAY 2 PUFFS EACH NOSTRIL TID DR ADAIR MAGIC NASAL SPRAY No Longer Active Angela Sheehan AMOXICILLIN 500 MG CAP 1 PO TID AMOXICILLIN 633 76115274 No Longer Active Angela Sheehan DYAZIDE 37.5-25 MG CAPS 1 po daily TRIAMTERENE-HC TZ 69498381100 Active Marta Dimas STOOL SOFTENER 100 MG CAPS 2 tabs daily DOCUSATE SODIUM 98584471293 Active Angela Sheehan Immunizations Vaccine Administration Date [...] mg/dL Encounters Code Encounter Date Provider Facility CPT-93085 Ofc Vst, Est Level IV 13:36:26 CDT Angela Sheehan DO, FACP CPT-20273 Ofc Vst, Est Level IV 20:09:34 CLAM PICKER Angela Sheehan DO, FACP CPT-35415 Ofc Vst, Est Level III 16:58:51 CDT Angela Sheehan DO, FACP CPT-16880 Ofc Vst, Est Level IV 16:32:55 CDT Angela Sheehan DO, FACP CPT-76560 Ofc Vst, Est Level IV 16:18:42 CL[employer] Angela Sherry Munoz Sheehan, DO, FACP CPT-41488 Ofc Vst, Est Level IV 16:22:46 CDT Angela Sherry Munoz Sheehan, DO, FACP CPT-30275 Ofc Vst, Est Level IV 16:33:52 CDT Angela Sherry Munoz Sheehan, DO, FACP CPT-26375 Ofc Vst, Est Level IV 15:57:21 CLAM PICKER Angela Sherry Munoz Sheehan, DO, FACP CPT-71197 Ofc Vst, Est Level IV 16:03:21 CDT Angela Sherry Munoz Sheehan, DO, FACP CPT-28133 Ofc Vst, Est Level IV 16:28:10 CDT Angela Sherry Munoz Sheehan, DO, FACP CPT-11368 Ofc Vst, Est Level IV 15:33:01 CLAM PICKER Angela Sherry Munoz Sheehan, DO, FACP CPT-03871 Ofc Vst, Est Level IV 16:37:11 CDT Angelaedgar Munoz Sheehan, DO, FACP CPT-08499 Ofc Vst, Est Level III 10:40:43 CDT Angela Alexander Munoz Sheehan, DO, FACP CPT-90955 Ofc Vst, Est Level IV 15:31:08 CDT Angela Sherry Munoz Sheehan, DO, FACP CPT-42696 Ofc Vst, Est Level IV 14:06:55 CLAM PICKER Angela Munoz Sheehan, DO, FACP CPT-00988 Ofc Vst, Est Level IV 11:35:17 CLAM PICKER Angela Sherry Munoz Sheehan, DO, FACP CPT-90309 Ofc Vst, Est Level III 17:12:08 CDT Angela S qasim Gomezi Alexander Sheehan, DO, FACP CPT-43915 Ofc Vst, Est Level IV 14:39:07 CDT Angela Sherry Munoz Sissy, DO, FACP CPT-21867 Ofc Vst, Est Level III 16:48:54 CDT Angela S qasim Munoz Sissy, DO, FACP CPT-38161 Ofc Vst, Est Level IV 17:24:56 CDT Angela Sherry Harrisonner Angela Alexander Sissy, DO, FACP CPT-22882 Ofc Vst, Est Level III 15:01:47 CDT Angela S qasim Munoz Sissy, DO, FACP CPT-69906 Ofc Vst, Est Level IV 11:46:33 CDT Angela Sherry Munoz Sissy, DO, FACP CPT-70945 Ofc Vst, Est Level V 16:42:52 CDT Angela Aisha Gomezi Alexander Sissy, DO, FACP CPT-33091 Ofc Vst, Est Level IV 09:33:53 CDT Angela Sherry gonzalez Sheehan Angela Munoz Sissy, DO, FACP CPT-41889 Ofc Vst, Est Level IV 15:34:29 CDT Angela Sherry gonzalez Sissy Angela Munoz Sissy, DO, FACP CPT-73667 Ofc Vst, Est Level IV 16:30:35 CDT Angela Sherry gonzalez Sissy Angela Alexander Sissy, DO, FACP CPT-25534 Ofc Vst, Est Level IV 09:45:42 CDT Angela Sherry gonzalez Sissy [facility] CPT-52607 Ofc Vst, Est Level IV 17:17:04 CDT Angela Sherry lisa Sheehan [facility] CPT-96507 Ofc Vst, Est Level III 11:25:55 CLAM PICKER Angela S uzanne Sheehan [facility] [place] CPT-97969 Ofc Vst, Est Level III 16:38:15 CLAM PICKER Angela S uzanne Sheehan [facility] [place] CPT-77999 Ofc Vst, Est Level III 10:30:19 CLAM PICKER Angela S uzanne Sheehan [facility] [place] CPT-27973 Ofc Vst, Est Level III 15:49:08 CLAM PICKER Angela S uzanne Sheehan [facility] [place] CPT-23753 Ofc Vst, Est Level III 17:33:10 CDT Angela S uzanne Sheehan [facility] [place] CPT-42855 Ofc Vst, Est Level III 16:04:47 CDT Angela S uzanne Sheehan [facility] [place] CPT-90754 Ofc Vst, Est Level III 11:21:24 CDT Angela S uzanne Sheehan [facility] [place] CPT-37108 Ofc Vst, Est Level III 15:56:17 CDT Angela S uzanne Sheehan [facility] [place] CPT-39478 Ofc Vst, Est Level III 10:48:16 CDT Angela S uzanne Sheehan [facility] [place] CPT-32460 Ofc Vst, Est Level III 19:48:03 CDT Angela S uzanne Sheehan [facility] [place] CPT-06455 Ofc Vst, New Level III 10:28:40 CDT Angela S uzanne Sheehan [facility] [place] Procedures Code Procedure Name Date Entry Date Standard Desc ription CPT-54355 Preventive, Est, (40-64) 20:42:16 CDT 02/03 CPT-34027 Preventive, Est, (40-64) 14:13:37 CDT 04/01 CPT-26247 Preventive, Est, (40-64) 16:58:36 CLAM PICKER 10/13 CPT-84040 Preventive, Est, (40-64) 15:32:47 CLAM PICKER 11/04 CPT-44130 Handling of specimen from office to lab 15:32:47 CLAM PICKER CPT-67620 EKG w/ Interpretation 16:42:52 CDT CPT-97602 Preventive, Est, (40-64) 12:49:32 CLAM PICKER 02/06
--- OUTSIDE RECORDS SUMMARY | 2020-06-23 08:11 | XMS REPORT | Clinical Summary ---
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.1 Active Angela Sheehan PURE HYPERGLYCERIDEMIA SEBACEOUS CYST, INFECTED 706.2 Active Angela Sheehan VAGINITIS, ATROPHIC 627.3 Active Angela Sheehan POSTMENOPAUSAL ATROPHIC VAGINITIS Medication List Medication Instructions Start Date Stop Date Generic Name ND Status Provider Patient Instruction STOOL SOFTENER 100 MG CAPS 2 tabs daily DOCUSATE SODIUM 74840155820 Active Angela Sheehan DYAZIDE 37.5-25 MG CAPS 1 po daily TRIAMTERENE-HC TZ 04405150536 Active Marta Dimas ALDACTONE 50 MG TABS 1 PO daily for HTN SPIRONOLA CTONE 19021523919 Active Marta Dimas LOTENSIN 10 MG TAB 1 PO daily BENAZEPRIL HCL 82883492 003 Active Marta Dimas VITAMIN D 1000 UNIT TABS 1 PO Daily CHOLECALCIFER OL 62440039772 Active Angelaedgar Sheehan ESTRACE 1 MG TABS I po daily ESTRADIOL 14855994253 Activ e Marta Dimas SYNTHROID 0.025 MG TAB 1/2 PO daily with 150 mcg dosing LEVOTHYROXINE SODIUM 91024333040 Active Marta Dimas SYNTHROID 150 MCG TABS 1 PO daily along with 12.5 mcg dosing 12/08 LEVOTHYROXINE SODIUM 82497152164 Active Marta Dimas POTASSIUM CHLORIDE ER 10 MEQ CR-CAPS 1 PO DAILY POTASSIUM CHLORIDE 81770009008 Active Marta Dimas PREMARIN 0.625 MG/GM CREA Apply to affected area daily prn ESTROGENS, CONJUGATED VAGINAL 87625821736 Active Angela Montoya er Vital Signs Date Name Value Unit Range Description blood pressure, diastolic 62 mm[Hg] BP lacey blood pressure, systolic 134 mm[Hg] BP sys pulse rate E&M 80 /min Heart rate respiratory rate E&M 14 /min Resp rate blood pressure, diastolic 70 mm[Hg] BP lacey blood pressure, systolic 130 mm[Hg] BP sys pulse rate E&M 80 /min Heart rate respiratory rate E&M 14 /min Resp rate weight E&M 218 [lb_av] Weight Measure d blood pressure, diastolic 80 mm[Hg] BP lacey blood pressure, systolic 132 mm[Hg] BP sys pulse rate E&M 80 /min Heart rate respiratory rate E&M 14 /min Resp rate temperature E&M 98.6 [degF] Body temp erature weight E&M 215 [lb_av] Weight Measure d Diagnostic Results Date Name Value Unit Range Description Clinical Lists Update: CBC,CMP,FLP,TSH,F ree T4 - Chemistry Estimated Glomerular Filtration Rate (calc) 58 mL/ min/1.73m2 thyroid stimulating hormone, serum 1.01 u[iU]/mL glucose, plasma fasting 91 mg/dL alkaline phosphatase, serum 41 U/L cholesterol/HDL ratio, serum 5.0 anion gap, serum 13 urea nitrogen, blood 20 mg/dL sodium, serum 137 mmol/L calcium, serum 9.6 mg/dL triglyceride, serum, fasting 221 mg/dL chloride, serum 101 mmol/L bilirubin, serum, total 0.4 mg/dL cholesterol, serum 203 mg/dL alanine aminotransferase (SGPT), serum 15 U/L carbon dioxide, venous blood 27.0 mmol/L aspartate aminotransferase (SGOT), serum 16 U/L creatinine, serum 1.1 mg/dL protein, total, serum 7.1 g/dL thyroxine, serum, free 1.03 ng/dL potassium, serum 3.5 mmol/L HDL cholesterol, serum 41.0 mg/dL LDL cholesterol, serum 118 mg/dL albumin, serum 4.2 g/dL Clinical Lists Update: CBC,CMP,FLP,TSH,F ree T4 - Hematology hemoglobin, blood 14.1 g/dL hematocrit, blood 44 % platelet count 307 10*3/mm3 erythrocyte (RBC) count 4.82 10*6/mm3 leukocyte count, blood 8.5 10*3/mm3 mean corpuscular volume, RBC 90 fL red blood cell distribution width 15.4 % Clinical Lists Update: CMP,Chol,Trig,TSH ,Free T4 - Chemistry carbon dioxide, venous blood 27.0 mmol/L thyroid stimulating hormone, serum 1.44 u[iU]/mL cholesterol, serum 183 mg/dL triglyceride, serum, fasting 234 mg/dL chloride, serum 100 mmol/L sodium, serum 137 mmol/L calcium, serum 9.5 mg/dL anion gap, serum 14 urea nitrogen, blood 21 mg/dL glucose, plasma fasting 90 mg/dL alkaline phosphatase, serum 37 U/L Estimated Glomerular Filtration Rate (calc) 62 mL/ min/1.73m2 albumin, serum 4.1 g/dL alanine aminotransferase (SGPT), serum 14 U/L creatinine, serum 1.0 mg/dL aspartate aminotransferase (SGOT), serum 15 U/L thyroxine, serum, free 0.95 ng/dL protein, total, serum 6.9 g/dL potassium, serum 3.6 mmol/L bilirubin, serum, total 0.3 mg/dL
--- OUTSIDE RECORDS SUMMARY | 2020-06-23 08:11 | XMS REPORT | Clinical Summary ---
Author Author Nia hernandez Organization [facility] [place] [address] Phone Unavailable Allergies, Adverse Reactions, Alerts Allergy [...] MG CAPS 2 tabs daily DOCUSATE SODIUM 24806691537 Active Angela Sheehan DYAZIDE 37.5-25 MG CAPS 1 po daily TRIAMTERENE-HC TZ 61162627521 Active Marta Dimas ALDACTONE 50 MG TABS 1 PO daily for HTN SPIRONOLA CTONE 44880341051 Active Marta Dimas LOTENSIN 10 MG TAB 1 PO daily BENAZEPRIL HCL 85979967 003 Active Marta Dimas VITAMIN D 1000 UNIT TABS 1 PO Daily CHOLECALCIFER OL 86343642364 Active Angelaedgar Sheehan ESTRACE 1 MG TABS I po daily ESTRADIOL 42178619458 Activ e Marta Dimas SYNTHROID 0.025 MG TAB 1/2 PO daily with 150 mcg dosing LEVOTHYROXINE SODIUM 37721068412 Active Marta Dimas SYNTHROID 150 MCG TABS 1 PO daily along with 12.5 mcg dosing 12/08 LEVOTHYROXINE SODIUM 75443068663 Active Marta Dimas POTASSIUM CHLORIDE ER 10 MEQ CR-CAPS 1 PO DAILY POTASSIUM CHLORIDE 65340199522 Active Marta Dimas PREMARIN 0.625 MG/GM CREA Apply to affected area daily prn ESTROGENS, CONJUGATED VAGINAL 41148398691 Active Angela Montoya er Vital Signs Date [...]
--- OUTSIDE RECORDS SUMMARY | 2020-06-23 08:11 | XMS REPORT | Clinical Summary ---
Author Author Nia hernandez Organization [facility] Physician [facility] [place] [address] Phone Unavailable Allergies, Adverse Reactions, Alerts Allergy [...] 793.80 Active Marta Dimas UNSPECIFIED ABNORMAL MAMMOGRAM Medication List Medication Instructions Start Date Stop Date Generic Name NDC Status Provider Patient Instruction STOOL SOFTENER 100 MG CAPS 2 tabs daily DOCUSATE SODIUM 18763636921 Active Angela Sheehan DYAZIDE 37.5-25 MG CAPS 1 po daily TRIAMTERENE-HC TZ 86938005210 Active Marta Dimas ALDACTONE 50 MG TABS 1 PO daily for HTN SPIRONOLA CTONE 18851075651 Active Marta Dimas LOTENSIN 10 MG TAB 1 PO daily BENAZEPRIL HCL 33051547 730 Active Marta Dimas VITAMIN D 1000 UNIT TABS 1 PO Daily CHOLECALCIFER OL 70705880583 Active Angela Sheehan ESTRACE 1 MG TABS I po daily ESTRADIOL 66710972994 Activ e Marta Dimas SYNTHROID 0.025 MG TAB 1/2 PO daily with 150 mcg dosing LEVOTHYROXINE SODIUM 23422603357 Active Angela Sheehan SYNTHROID 150 MCG TABS 1 PO daily along with 12.5 mcg dosing 12/08 LEVOTHYROXINE SODIUM 08403380913 Active Marta Dimas POTASSIUM CHLORIDE ER 10 MEQ CR-CAPS 1 PO DAILY POTASSIUM CHLORIDE 49310872219 Active Marta Jonestis Vital Signs Date Name Value Unit Range Description blood pressure, diastolic 80 mm[Hg] BP lacey [...]
--- OUTSIDE RECORDS SUMMARY | 2020-06-23 08:11 | XMS REPORT | Clinical Summary ---
Author Author Nia hernandez Organization [facility] [place] [address] Phone Unavailable Allergies, Adverse Reactions, Alerts Allergy [...] Instructions Start Date Stop Date Generic Name [facility][NOTE 3] Status Provider Patient Instruction STOOL SOFTENER 100 MG CAPS 2 tabs daily DOCUSATE SODIUM 88746214611 Active Angela Sheehan DYAZIDE 37.5-25 MG CAPS 1 po daily TRIAMTERENE-HC TZ 88363300876 Active Marta Dimas ALDACTONE 50 MG TABS 1 PO daily for HTN SPIRONOLA CTONE 33321821276 Active Marta Dimas LOTENSIN 10 MG TAB 1 PO daily BENAZEPRIL HCL 43158464 003 Active Marta Dimas VITAMIN D 1000 UNIT TABS 1 PO Daily CHOLECALCIFER OL 06059981228 Active Angela Sheehan ESTRACE 1 MG TABS I po daily ESTRADIOL 18605126753 Activ e Marta Dimas SYNTHROID 0.025 MG TAB 1/2 PO daily with 150 mcg dosing LEVOTHYROXINE SODIUM 22359634363 Active Marta Dimas SYNTHROID 150 MCG TABS 1 PO daily along with 12.5 mcg dosing 12/08 LEVOTHYROXINE SODIUM 89643026982 Active Marta Dimas POTASSIUM CHLORIDE ER 10 MEQ CR-CAPS 1 PO DAILY POTASSIUM CHLORIDE 20553091493 Active Marta Dimas PREMARIN 0.625 MG/GM CREA Apply to affected area daily prn ESTROGENS, CONJUGATED VAGINAL 28071152505 Active Angela Montoya er Vital Signs Date [...]
--- OUTSIDE RECORDS SUMMARY | 2020-06-23 08:11 | XMS REPORT | Clinical Summary ---
Author Author Nia hernandez Organization [facility] [place] [address] Phone Unavailable Allergies, Adverse Reactions, Alerts Allergy [...] MG CAPS 2 tabs daily DOCUSATE SODIUM 89404936038 Active Angela Sheehan DYAZIDE 37.5-25 MG CAPS 1 po daily TRIAMTERENE-HC TZ 32892389590 Active Marta Dimas ALDACTONE 50 MG TABS 1 PO daily for HTN SPIRONOLA CTONE 19082370157 Active Marta Dimas LOTENSIN 10 MG TAB 1 PO daily BENAZEPRIL HCL 09100511 730 Active Marta Dimas VITAMIN D 1000 UNIT TABS 1 PO Daily CHOLECALCIFER OL 46910874706 Active Angela Sheehan ESTRACE 1 MG TABS I po daily ESTRADIOL 88271049365 Activ sarah Dimas SYNTHROID 0.025 MG TAB 1/2 PO daily with 150 mcg dosing LEVOTHYROXINE SODIUM 30087396726 Active Angela Sheehan SYNTHROID 150 MCG TABS 1 PO daily along with 12.5 mcg dosing 12/08 LEVOTHYROXINE SODIUM 08152606707 Active Angela Sheehan POTASSIUM CHLORIDE ER 10 MEQ CR-CAPS 1 PO DAILY POTASSIUM CHLORIDE 57578728495 Active Marta Dimas PREMARIN 0.625 MG/GM CREA Apply to affected area daily prn ESTROGENS, CONJUGATED VAGINAL 50414606406 Active Angela Montoya er Vital Signs Date [...]
--- OUTSIDE RECORDS SUMMARY | 2020-06-23 08:11 | XMS REPORT | Clinical Summary ---
Author Author Nia hernandez Organization [facility] [place] [address] Phone Unavailable Allergies, Adverse Reactions, Alerts Allergy [...] MG CAPS 2 tabs daily DOCUSATE SODIUM 17740257613 Active Angela Sheehan DYAZIDE 37.5-25 MG CAPS 1 po daily TRIAMTERENE-HC TZ 93594772869 Active Marta Dimas ALDACTONE 50 MG TABS 1 PO daily for HTN SPIRONOLA CTONE 81374512290 Active Marta Dimas LOTENSIN 10 MG TAB 1 PO daily BENAZEPRIL HCL 15249821 730 Active Marta Dimas VITAMIN D 1000 UNIT TABS 1 PO Daily CHOLECALCIFER OL 37042081799 Active Angela Sheehan ESTRACE 1 MG TABS I po daily ESTRADIOL 94504628719 Activ e Marta Dimas SYNTHROID 0.025 MG TAB 1/2 PO daily with 150 mcg dosing LEVOTHYROXINE SODIUM 77417755654 Active Angela Sheehan SYNTHROID 150 MCG TABS 1 PO daily along with 12.5 mcg dosing 12/08 LEVOTHYROXINE SODIUM 83716925374 Active Marta Dimas POTASSIUM CHLORIDE ER 10 MEQ CR-CAPS 1 PO DAILY POTASSIUM CHLORIDE 63335963283 Active Marta Jonestis Vital Signs Date Name [...]
--- OUTSIDE RECORDS SUMMARY | 2020-06-23 08:11 | XMS REPORT | Continuity of Care Document ---
Author Organization Unknown Address Unknown Phone Unavailable Allergies Active Description Code Type Severity Reaction Onset Reported/Identified Relationship to Patient Clinical Status Yes No Known Drug Allergies [id number] Drug Allergy Unknown N/A 01/08/2011 Medications There is no data. 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 06/09/2011 Ot 626.8 MENS TRUAL DISORDER NEC 06/09/2011 Ot 627.1 POST MENOPAUSAL BLEEDING 11/02/2011 Ot 562.10 DIV ERTICULOSIS COLON (W/O MENT OF HEMORR 07/11/2015 BHAVIN HAZEL DO Ot V76.12 07/22/2015 BHAVIN HAZEL DO Ot V76.12 05/07/2016 Ot 280.8 IRON DEFIC ANEMIA NEC 05/07/2016 Ot V58.69 OTH MED,LT,CURRENT USE 05/07/2016 Ot 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, MIDLINE 05/07/2016 Ot 625.6 FEM STRESS INCONTINENCE 05/07/2016 Ot 626.8 MENS TRUAL DISORDER NEC 05/07/2016 Ot V72.63 PRE -PROCEDURAL LABORATORY EXAMINATION 05/07/2016 Ot V72.81 [id number] CARDIOVASCULAR 05/07/2016 Ot V74.8 SCRE EN-BACTERIAL DIS NEC 05/07/2016 BHAVIN HAZEL DO Ot 793.89 OTH (ABN) FINDINGS ON RADIOLOGICAL EXAMI 05/07/2016 BHAVIN HAZEL DO Ot 793.80 UNSPEC ABNORMAL MAMMOGRAM 09/04/2016 Ot 280.8 IRON DEFIC ANEMIA NEC 09/04/2016 Ot V58.69 OTH MED,LT,CURRENT USE 09/04/2016 Ot 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, MIDLINE 09/04/2016 Ot 625.6 FEM STRESS INCONTINENCE 09/04/2016 Ot 626.8 MENS TRUAL DISORDER NEC 09/04/2016 Ot V72.63 PRE -PROCEDURAL LABORATORY EXAMINATION 09/04/2016 Ot V72.81 [id number] CARDIOVASCULAR 09/04/2016 Ot V74.8 SCRE EN-BACTERIAL DIS NEC 09/04/2016 ILIR DO, BHAVIN Ot 793.89 OTH (ABN) FINDINGS ON RADIOLOGICAL EXAMI 09/04/2016 HAZEL DO, BHAVIN Ot 793.80 UNSPEC ABNORMAL MAMMOGRAM 09/04/2016 HAZEL DO BHAVIN Ot V76.12 OTH SCREEN MAMMO-MALIGN NEOPLASM OF AKHIL 09/04/2016 HAZEL DO, BHAVIN Ot V76.12 OTH SCREEN MAMMO-MALIGN NEOPLASM OF AKHIL 09/05/2016 ILIR DO BHAVIN Ot Z12.31 ENCNTR SCREEN MAMMOGRAM FOR MALIGNANT NE 09/05/2016 HAZEL DO BHAVIN Ot Z12.31 ENCNTR SCREEN MAMMOGRAM FOR MALIGNANT NE 09/20/2016 HAZEL DO, BHAVIN Ot Z12.31 ENCNTR SCREEN MAMMOGRAM FOR MALIGNANT NE 02/21/2017 HAZEL DO, BHAVIN Ot 793.89 OTH (ABN) FINDINGS ON RADIOLOGICAL EXAMI 02/21/2017 ILIR DO, BHAVIN Ot 793.80 UNSPEC ABNORMAL MAMMOGRAM 02/21/2017 ILIR DO BHAVIN Ot V76.12 OTH SCREEN MAMMO-MALIGN NEOPLASM OF AKHIL 02/21/2017 HAZEL DO BHAVIN Ot V76.12 OTH SCREEN MAMMO-MALIGN NEOPLASM OF AKHIL 02/21/2017 HAZEL DO BHAVIN Ot Z12.31 ENCNTR SCREEN MAMMOGRAM FOR MALIGNANT NE 02/26/2017 HAZEL DO BHVAIN Ot 793.89 OTH (ABN) FINDINGS ON RADIOLOGICAL EXAMI 02/26/2017 HAZEL DO, BHAVIN Ot 793.80 UNSPEC ABNORMAL MAMMOGRAM 02/26/2017 HAZEL DO BHAVIN Ot V76.12 OTH SCREEN MAMMO-MALIGN NEOPLASM OF AKHIL 02/26/2017 HAZEL DO BHAVIN Ot V76.12 OTH SCREEN MAMMO-MALIGN NEOPLASM OF AKHIL 02/26/2017 ILIR DO BHAVIN Ot Z12.31 ENCNTR SCREEN MAMMOGRAM FOR MALIGNANT NE 08/13/2017 HAZEL DO, BHAVIN Ot 793.89 OTH (ABN) FINDINGS ON RADIOLOGICAL EXAMI 08/13/2017 ILIR MUNOZ BHAVIN Ot 793.80 UNSPEC ABNORMAL MAMMOGRAM 08/13/2017 ILIR MUNOZ BHAVIN Ot V76.12 OTH SCREEN MAMMO-MALIGN NEOPLASM OF AKHIL 08/13/2017 ILIR MUNOZ BHAVIN Ot V76.12 OTH SCREEN MAMMO-MALIGN NEOPLASM OF AKHIL 08/13/2017 ILIR MUNOZ BHAVIN Ot Z12.31 ENCNTR SCREEN MAMMOGRAM FOR MALIGNANT NE 09/04/2017 ILIR MUNOZ BHAVIN Ot 793.89 OTH (ABN) FINDINGS ON RADIOLOGICAL EXAMI 09/04/2017 ILIR MUNOZ BHAVIN Ot 793.80 UNSPEC ABNORMAL MAMMOGRAM 09/04/2017 ILIR MUNOZ BHAVIN Ot V76.12 OTH SCREEN MAMMO-MALIGN NEOPLASM OF AKHIL 09/04/2017 ILIR MUNOZ BHAVIN Ot V76.12 OTH SCREEN MAMMO-MALIGN NEOPLASM OF AKHIL 09/04/2017 ILIR MUNZO BHAVIN Ot Z12.31 ENCNTR SCREEN MAMMOGRAM FOR MALIGNANT NE 09/06/2017 ILIR MUNOZ, BHAVIN Ot Z12.31 ENCNTR SCREEN MAMMOGRAM FOR MALIGNANT NE 09/19/2017 ILIR MUNOZ BHAVIN Ot Z12.31 ENCNTR SCREEN MAMMOGRAM FOR MALIGNANT NE 06/04/2018 HAZEL DO, BHAVIN Ot R00.2 PALPITATIONS 06/18/2018 HAZEL DO, BHAVIN Ot R00.2 PALPITATIONS 06/24/2018 HAZEL DO, BHAVIN Ot R00.2 PALPITATIONS 07/14/2018 HAZEL DO, BHAVIN Ot R00.2 PALPITATIONS 07/24/2018 HAZEL DO BHAVIN Ot 793.89 OTH (ABN) FINDINGS ON RADIOLOGICAL EXAMI 07/24/2018 ILIR MUNOZ BHAVIN Ot 793.80 UNSPEC ABNORMAL MAMMOGRAM 07/24/2018 ILIR DO BHAVIN Ot V76.12 OTH SCREEN MAMMO-MALIGN NEOPLASM OF AKHIL 07/24/2018 HAZEL DO BHAVIN Ot V76.12 OTH SCREEN MAMMO-MALIGN NEOPLASM OF AKHIL 07/24/2018 ILIR MUNOZ BHAVIN Ot Z12.31 ENCNTR SCREEN MAMMOGRAM FOR MALIGNANT NE 07/24/2018 HAZEL DO, BHAVIN Ot Z12.31 ENCNTR SCREEN MAMMOGRAM FOR MALIGNANT NE 07/24/2018 HAZEL DO, BHAVIN Ot R00.2 PALPITATIONS 07/24/2018 HAZEL DO, BHAVIN Ot R00.2 PALPITATIONS 08/27/2018 HAZEL DO, BHAVIN Ot R00.2 PALPITATIONS 10/02/2018 HAZEL DO, BHAVIN Ot 793.80 UNSPEC ABNORMAL MAMMOGRAM 10/02/2018 HAZEL DO, BHAVIN Ot V76.12 OTH SCREEN MAMMO-MALIGN NEOPLASM OF AKHIL 10/02/2018 HAZEL DO, BHAVIN Ot V76.12 OTH SCREEN MAMMO-MALIGN NEOPLASM OF AKHIL 10/02/2018 HAZEL DO, BHAVIN Ot Z12.31 ENCNTR SCREEN MAMMOGRAM FOR MALIGNANT NE 10/02/2018 HAZEL DO, BHAVIN Ot Z12.31 ENCNTR SCREEN MAMMOGRAM FOR MALIGNANT NE 10/02/2018 HAZEL DO, BHAVIN Ot R00.2 PALPITATIONS 10/02/2018 HAZEL DO, BHAVIN Ot R00.2 PALPITATIONS 10/08/2018 HAZEL DO, BHAVIN Ot Z12.31 ENCNTR SCREEN MAMMOGRAM FOR MALIGNANT NE 10/20/2019 HAZEL DO, BHAVIN Ot Z12.31 ENCNTR SCREEN MAMMOGRAM FOR MALIGNANT NE 11/02/2019 HAZEL DO, BHAVIN Ot N63.10 UNSPECIFIED LUMP IN THE RIGHT BREAST, UN 11/02/2019 HAZEL DO, BHAVIN Ot R92.0 MAMMOGRAPHIC MICROCALCIFICATION FOUND ON 11/04/2019 HAZEL DO, BHAVIN Ot N63.10 UNSPECIFIED LUMP IN THE RIGHT BREAST, UN 11/04/2019 HAZEL DO, BHAVIN Ot R92.0 MAMMOGRAPHIC MICROCALCIFICATION FOUND ON 11/19/2019 HAZEL DO, BHAVIN Ot N63.10 UNSPECIFIED LUMP IN THE RIGHT BREAST, UN 11/19/2019 HAZEL DO, BHAVIN Ot R92.0 MAMMOGRAPHIC MICROCALCIFICATION FOUND ON 12/10/2019 HAZEL DO, BHAVIN Ot N63.10 UNSPECIFIED LUMP IN THE RIGHT BREAST, UN 12/10/2019 HAZEL DO BHAVIN Ot R92.1 MAMMOGRAPHIC CALCIFCN FOUND ON DIAGNOSTI 02/08/2020 HAZEL DO, BHAVIN Ot N63.10 UNSPECIFIED LUMP IN THE RIGHT BREAST, UN 02/08/2020 HAZEL DO, BHAVIN Ot R92.0 MAMMOGRAPHIC MICROCALCIFICATION FOUND ON Procedures There is no data. Results There is no data. Encounters ACCT No. Visit Date/Time Discharge Status Pt. Type Provider Facility Loc./Unit Complaint [id number] 11/11/2019 09:15:00 019 23:59:59 CLS Outpatient HAZEL DO, BHAVIN [facility] RAD RIGHT BREAST MASS [id number] 10/29/2019 12:34:00 019 23:59:59 CLS Outpatient HAZEL DO, BHAVIN [facility] RAD LUMP IN RIGHT BREAST [id number] 10/14/2019 07:33:00 019 23:59:59 CLS Outpatient HAZEL DO, BHAVIN [facility] RAD SCREENING [id number] 10/07/2018 07:45:00 018 23:59:59 CLS Outpatient HAZEL DO, BHAVIN [facility] RAD SCREENING Z12.31 [id number] 08/25/2018 08:30:00 018 23:59:59 CLS Preadmit HAZEL DO, BHAVIN [facility] CARD HEART PALPITATIONS [id number] 06/05/2018 08:07:00 018 00:01:00 DIS Outpatient HAZEL DO, BHAVIN [facility] CARD HEART PALPITATIONS [id number] 06/03/2018 07:24:00 018 23:59:59 CLS Outpatient HAZEL DO, BHAVIN [facility] CARD HEART PALPITATIONS [id number] 09/05/2017 09:50:00 017 23:59:59 CLS Outpatient HAZEL DO, BHAVIN [facility] RAD SCREENING [id number] 09/04/2016 07:29:00 016 23:59:59 CLS Outpatient HAZEL DO, BHAVIN [facility] RAD SCREENING [id number] 07/07/2015 07:22:00 015 23:59:59 CLS Outpatient HAZEL DO, BHAVIN [facility] RAD SCREENING [id number] 04/07/2014 07:00:00 014 23:59:59 CLS Outpatient HAZEL DO, BHAVIN [facility] RAD SCREENING [id number] 09/30/2013 07:22:00 013 23:59:59 CLS Outpatient HAZEL DO, BHAVIN [facility] RAD 6 MONTH FOLLOW UP [id number] 03/25/2013 07:25:00 23:59:59 CLS Outpatient HAZEL DO, BHAVIN [facility] RAD ABN MAMMO [id number] 05/07/2016 12:37:00 Document Registration [id number] 05/07/2016 12:37:00 Document Registration [id number] 11/02/2011 06:59:00 Document Registration [id number] 06/08/2011 05:35:00 Document Registration [id number] 06/04/2011 08:02:00 Document Registration [id number] 04/09/2011 00:00:00 Document Registration [id number] 01/17/2011 15:37:00 Document Registration
[2020-06-23] MEDS ORDERED: PHENAZOPYRIDINE 100 MG (PYRIDIUM) TABLET PO ONE (08:15)
[2020-06-23 08:19] LABS: HEMOGLOBIN 13.1 G/DL (11.5-16.0); MEAN PLATELET VOLUME 10.1 FL (7.4-10.4); RED CELL DISTRIBUTION WIDTH 13.9 % (10.0-14.5); WHITE BLOOD COUNT 13.3 10^3/uL (4.3-11.0)
[2020-06-23 08:21] LABS: BILIRUBIN,URINE NEGATIVE (NEGATIVE); CLARITY,URINE CLEAR; COLOR,URINE YELLOW; GLUCOSE, URINE (UA) NEGATIVE (NEGATIVE); KETONES,URINE NEGATIVE (NEGATIVE); LEUKOCYTE ESTERASE ,URINE 2+ (NEGATIVE); NITRITE,URINE NEGATIVE (NEGATIVE); PH,URINE 5.5 (5-9); PROTEIN,URINE NEGATIVE (NEGATIVE)
[2020-06-23 08:27] LABS: ALBUMIN 4.2 GM/DL (3.2-4.5)
[2020-06-23 08:28] LABS: POTASSIUM 3.6 MMOL/L (3.6-5.0)
[2020-06-23 08:29] LABS: CALCIUM 10.7 MG/DL (8.5-10.1)
[2020-06-23 08:30] LABS: TOTAL PROTEIN 7.8 GM/DL (6.4-8.2)
[2020-06-23 08:31] LABS: WBC,URINE 50-100 /HPF
[2020-06-23 08:32] LABS: BILIRUBIN,TOTAL 0.5 MG/DL (0.1-1.0)
[2020-06-23 08:32] LABS: BACTERIA,URINE MODERATE /HPF
[2020-06-23 08:34] LABS: CREATININE SERUM 1.08 MG/DL (0.60-1.30)
--- NOTE | 2020-06-23 08:54 | Diagnostic Imaging Report ---
INDICATION: Pain and fever FINDINGS: The right upper quadrant ovoid mass effect measuring 16 cm cephalocaudal x 15 cm transverse. This may be a very large renal cyst, however, given the absence of priors would recommend abdominal pelvic CT for its further characterization. If tolerable, IV contrast administration would be encouraged. The bowel gas pattern appeared normal. No abnormal fecal loading. No evidence for obstruction or free air. IMPRESSION: 1. Ovoid mass effect right upper quadrant, dimensions above, etiology indeterminate. Dedicated contrast enhanced abdominal pelvic CT recommended as further evaluation. As an alternative, ultrasound may resolve its indeterminacy. 2. Nonobstructive unremarkable bowel gas pattern. Dictated by: Dictated on workstation # [id number]
[2020-06-23] MEDS ORDERED: cefTRIAXone FOR IV USE 1,000 MG in WATER (STERILE) FOR INJECTION 10 ML IV STA (09:13)
[2020-06-23] MEDS ORDERED: IOHEXOL 350 MG/ML 100 ML (OMNIPAQUE 350) VIAL IV ONE (10:00)
[2020-06-23] MEDS ORDERED: HOLD METFORMIN - RECEIVED CONTRAST 20 ML VIAL IV SCH (10:00)
[2020-06-23] MEDS ORDERED: NS 100 ML (IVPB) BAG IV ONE (10:00)
[2020-06-23] MEDS ORDERED: CIPR500T4 PO (10:51)
[2020-06-23] MEDS ORDERED: METR500T PO (10:51)
[2020-06-23 11:06] VITALS: BP 142/70
--- NOTE | 2020-06-23 11:19 | Diagnostic Imaging Report ---
PROCEDURE: CT abdomen and pelvis with contrast. TECHNIQUE: Multiple contiguous axial images were obtained through the abdomen and pelvis after administration of intravenous contrast. Auto Exposure Controls were utilized during the CT exam to meet ALARA standards for radiation dose reduction. INDICATION: Abdominal pain. FINDINGS: There are no prior CT examinations available for comparison. The plain film examination of the abdomen performed prior to this study did note a 15 x 16 cm ovoid mass overlying the right mid abdomen. The possibility that this was related to a large renal cyst was raised. On this exam, there is indeed a large 12.1 x 12.1 cm low-density mass arising from the right kidney. I do suspect that this is a cyst. The right kidney is otherwise unremarkable as is the left kidney. The liver is of lower density than usually seen. This does suggest fatty metamorphosis. There is no focal mass involving the liver and the biliary tree is not abnormally dilated. The gallbladder is surgically absent. The spleen, pancreas, adrenals, aorta and inferior vena cava, and portal vein show no sign of an acute abnormality. The stomach is not well distended and difficult to assess. There is a small hiatal hernia. The images through the pelvis do show that there is diverticulosis of the sigmoid and descending colon. There is also distortion of the pericolonic fat about the midportion of the sigmoid colon and the wall in this area does seem thickened. These findings would be consistent with acute diverticulitis. There is no diverticular mass or abscess identified and there is no clear evidence for a microperforation. The urinary bladder is grossly unremarkable. The uterus is surgically absent. The appendix is not well visualized, but there are no indirect signs of acute appendicitis. There are several fluid-filled segments of small bowel in the left mid abdomen. This appearance is nonspecific but could be related to a mild ileus perhaps secondary to the diverticulitis involving the sigmoid colon. Enteritis could also present in this manner. The lung bases are clear. There is a 9 mm nodular density in the right breast. This finding is not visualized in its entirety. This could be secondary to fibroglandular tissue alone as the previous mammogram of 10/14/2019 failed to show any sign of a mass in this area. Even so, I would recommend that a repeat mammogram be performed when the patient's condition permits. Ultrasound should also be obtained. The bone windows show no evidence for a fracture or for a destructive lesion. IMPRESSION: 1. There is diverticulosis of the sigmoid and descending colon and there is thickening of the wall of the midportion of the sigmoid colon with distortion of the pericolonic fat in this region. This appearance would be consistent with acute diverticulitis. There is no diverticular mass or abscess visualized, however. There is no sign of a microperforation either. 2. The fluid-filled segments of small bowel in the left mid abdomen are of uncertain etiology. This could be related to a mild ileus perhaps secondary to the suspected inflammation of the sigmoid colon. Enteritis could also present in this manner. 3. There is a large benign-appearing cyst arising from the right kidney. 4. The nodular density in the retroareolar region of the right breast is of uncertain etiology. Considerations and recommendations as above. 5. These results were discussed with Nilesh Shukla D.O., in the ER at the time of this dictation. Dictated by: Dictated on workstation # [id number]
== END 2020-06-23 11:06 | disposition home or self-care (01) ==
LOC: EDUNIT# 07:44 → ER 07:44
DX: K57.32 Diverticulitis of large intestine without perforation or abscess without bleeding (principal); N63.10 Unspecified lump in the right breast, unspecified quadrant; N30.90 Cystitis, unspecified without hematuria; Z79.52 Long term (current) use of systemic steroids
CPT/HCPCS: 36415; 74019; 74177; 80053; 81000; 83690; 85027; 86141; 87077; 87088